=== PATIENT | female | born 1940 | race Caucasian/White ===

== ENCOUNTER 2021-03-20 22:21 | Inpatient (IN) | payer MEDICARE, SELFPAY ==
--- NOTE | 2021-03-20 22:32 | ED_ITS ---
Documented by User: Didier Berrios MD 03/30/21 02:43 HPI - Abdominal Pain General: Chief Complaint: Abdominal Pain Stated Complaint: N/V/D ABD PAIN Time Seen by Provider: 03/20/21 22:32 History of Present Illness: HPI narrative: Ms. Pedraza is an 80-year-old lady who reports no significant past medical history presents to the emergency department due to abdominal pain, nausea, vomiting, diarrhea. She does have a history of stomach upset however no formal diagnosis. Subacutely at approximately 5:30 PM she had onset of abdominal pain. Intensity of symptoms is moderate to severe and primarily on the left side of the abdomen with radiation to the right. She endorses 4 episodes of nonbilious and nonbloody emesis. She has also had multiple episodes of diarrhea. When she is vomiting she has urinary leakage. She has subjective fevers and chills associated with this but no other infectious symptoms. Earlier in the day she was at her baseline. Overall the course of symptoms has worsened. No other new changes in health, exacerbating, or relieving factors identified. Review of Systems General: Reports: 10 or more systems reviewed and unremarkable except in HPI and below PFSH ED PFSH: Medical History Anemia Blind left eye ANSELMO (generalized anxiety disorder) Macrocytosis PVD (peripheral vascular disease) Sciatica TIA (transient ischemic attack) Surgical History H/O eye surgery H/O knee surgery S/P IRASEMA-BSO Family History Daughter Healthy adult Social History Smoking and tobacco status: former smoker Alcohol intake: current Alcohol type: wine Lives independently: Yes Household members: significant other Marital status: / Physical Exam Narrative: EXAM NARRATIVE: GENERAL/CONSTITUTIONAL - uncomfortable-appearing. Nontoxic Eyes -no scleral icterus, no conjunctival injection ENMT - Atraumatic external nose and ears. NECK - supple. trachea midline CARDIOVASCULAR - regular rate and rhythm. Normal peripheral perfusion RESPIRATORY - clear to auscultation bilaterally. No retractions or accessory muscle use. ABDOMEN/GI - tenderness to palpation. Nondistended. Mild tenderness to percussion without evidence of remote peritonitis. MSK - Extremities without obvious deformity or tenderness to palpation SKIN - Warm, Dry NEURO - alert and appropriately oriented. Moves all extremities equally. Course ED course: - Patient was seen and evaluated by me at bedside - Patient placed on cardiac monitors, IV access obtained - Initial evaluation notable for abdominal exam as above - symptom treatment ordered - Labs and imaging ordered. Patient care handed off to overnight ED physician Dr Hawley pending completion and interpretation of labs and imaging studies. Vital Signs: Vital signs: Vital Signs Temperature 98.3 F 03/27/21 12:00 Pulse Rate 72 03/27/21 13:48 Respiratory Rate 17 03/27/21 13:00 Blood Pressure 129/71 03/27/21 13:00 Pulse Oximetry 95 03/26/21 20:00 MDM - Abdominal Pain Medical Records: Attestation: I reviewed the patient's medical records. Lab Data: Attestation: I reviewed the patient's lab results. Labs: Lab Results 03/20/21 03/20/21 03/20/21 10:45 22:37 22:37 WBC 10.9 10^3/uL H 10 ^3/uL (4.0-10.0) RBC 3.69 10^6/uL L 10 ^6/uL (4.1-5.3) Hgb 12.6 g/dL g/dL (11.5-15.3) Hct 37.9 % % (37.0-47.0) MCV 102.7 fl H fl (81-99) MCH 34.1 pg H pg (28.0-34.0) MCHC 33.2 g/dL g/dL (30.0-36.0) RDW 12.6 % % (12.1-15.1) Plt Count 287 10^3/cmm 10^3 /cmm (130-400) MPV 10.3 fL fL (7.4-10.4) Neut % (Auto) 65.2 % % Lymph % (Auto) 22.8 % % [place] % (Auto) 8.3 % % Eos % (Auto) 2.8 % % Baso % (Auto) 0.6 % % Neut # (Auto) 7.09 10^3/uL 10^3 /uL (1.8-7.7) Lymph # (Auto) 2.5 10^3/uL 10^3/ uL (0.8-4.8) [place] # (Auto) 0.9 10^3/uL 10^3/ uL (0.2-0.9) Eos # (Auto) 0.3 10^3/uL 10^3/ uL (0.0-0.8) Baso # (Auto) 0.1 10^3/uL 10^3/ uL (0.0-0.1) Nucleated RBC % (a uto) 0 % % Nucleated RBCs # 0.0 /100WBC /100W BC PT INR Sodium Cancelled Potassium Cancelled Chloride Cancelled Carbon Dioxide Cancelled Anion Gap Cancelled BUN Cancelled Creatinine Cancelled GFR Calculation Cancelled Glucose Cancelled POC Glucose Random Glucose Calculated Osmolal ity Cancelled Lactic Acid Lactate Calcium Cancelled Magnesium Total Bilirubin Cancelled Direct Bilirubin AST Cancelled ALT Cancelled Alkaline Phosphata se Cancelled Troponin T Baselin e Troponin T 120 [place] Troponin T Troponin T Hi Sens 6Hr Troponin T Hi Sens 6Hr Delta Total Protein Cancelled Albumin Cancelled Globulin Cancelled Lipase Cancelled TSH Urine Color Straw (Yellow) Urine Appearance Clear (CLEAR) Urine pH 7 (5-7) Ur Specific Gravit y 1.010 (1.005-1.030) Urine Protein Neg (Negative) Urine Glucose (UA) Norm (Normal) Urine Ketones 1+ H (Negative) Urine Blood Neg (Negative) Urine Nitrate Negative (Negative) Urine Bilirubin Neg (Negative) Urine Urobilinogen Norm mg/dL mg/dL (Negative) Ur Leukocyte Jing ase Negative (Negative) Blood Type Rho(D) Type Antibody Screen 03/20/21 03/20/21 03/20/21 22:37 22:37 22:55 WBC RBC Hgb Hct MCV MCH MCHC RDW Plt Count MPV Neut % (Auto) Lymph % (Auto) [place] % (Auto) Eos % (Auto) Baso % (Auto) Neut # (Auto) Lymph # (Auto) [place] # (Auto) Eos # (Auto) Baso # (Auto) Nucleated RBC % (a uto) Nucleated RBCs # PT INR Sodium Potassium Chloride Carbon Dioxide Anion Gap BUN Creatinine GFR Calculation Glucose POC Glucose 122 mg/dL H mg/dL (70-110) Random Glucose Calculated Osmolal ity Lactic Acid Lactate 1.1 mmol/L mmol/L (0.5-2.2) Calcium Magnesium Total Bilirubin Direct Bilirubin AST ALT Alkaline Phosphata se Troponin T Baselin e 14 ng/L H ng/L (0-10) Troponin T 120 [place] Troponin T Troponin T Hi Sens 6Hr Troponin T Hi Sens 6Hr Delta Total Protein Albumin Globulin Lipase TSH Urine Color Urine Appearance Urine pH Ur Specific Gravit y Urine Protein Urine Glucose (UA) Urine Ketones Urine Blood Urine Nitrate Urine Bilirubin Urine Urobilinogen Ur Leukocyte Jing ase Blood Type Rho(D) Type Antibody Screen 03/20/21 03/20/21 03/21/21 23:42 23:42 01:15 WBC RBC Hgb Hct MCV MCH MCHC RDW Plt Count MPV Neut % (Auto) Lymph % (Auto) [place] % (Auto) Eos % (Auto) Baso % (Auto) Neut # (Auto) Lymph # (Auto) [place] # (Auto) Eos # (Auto) Baso # (Auto) Nucleated RBC % (a uto) Nucleated RBCs # PT INR Sodium Cancelled 144 mmol/L mmol/L (136-145) Potassium Cancelled 3.5 mmol/L mmol/L (3.5-5.1) Chloride Cancelled 105 mmol/L mmol/L (98-107) Carbon Dioxide Cancelled 25 mmol/L mmol/L (22-29) Anion Gap Cancelled 17.5 (5-19) BUN Cancelled 16 mg/dL mg/dL (8-23) Creatinine Cancelled 0.6 mg/dL mg/dL (0.5-0.9) GFR Calculation Cancelled Not Reportable Glucose Cancelled 117 mg/dL H mg/dL (65-115) POC Glucose Random Glucose Cancelled Calculated Osmolal ity Cancelled 300 mOsm/kg H mOs m/kg (285-295) Lactic Acid Lactate Calcium Cancelled 8.5 mg/dL mg/dL (8.5-10.5) Magnesium Total Bilirubin Cancelled 0.3 mg/dL mg/dL (0.15-1.2) Direct Bilirubin AST Cancelled 14 U/L U/L (0-32) ALT Cancelled 9 U/L U/L (0-33) Alkaline Phosphata se Cancelled 59 IU/L IU/L (35-105) Troponin T Baselin e Troponin T 120 [place] 24.87 ng/L H ng/L (0-10) Delta Troponin T 10.87 ABS# H* ABS # (0-10) Troponin T Hi Sens 6Hr Troponin T Hi Sens 6Hr Delta Total Protein Cancelled 6.4 g/dL L g/dL (6.6-8.7) Albumin Cancelled 4.0 g/dL g/dL (3.5-5.2) Globulin Cancelled 2.4 g/dL g/dL (1.3-4.6) Lipase 33 U/L U/L (13-60) TSH Urine Color Urine Appearance Urine pH Ur Specific Gravit y Urine Protein Urine Glucose (UA) Urine Ketones Urine Blood Urine Nitrate Urine Bilirubin Urine Urobilinogen Ur Leukocyte Jing ase Blood Type Rho(D) Type Antibody Screen 03/21/21 03/21/21 03/21/21 01:15 01:40 01:40 WBC RBC Hgb Hct MCV MCH MCHC RDW Plt Count MPV Neut % (Auto) Lymph % (Auto) [place] % (Auto) Eos % (Auto) Baso % (Auto) Neut # (Auto) Lymph # (Auto) [place] # (Auto) Eos # (Auto) Baso # (Auto) Nucleated RBC % (a uto) Nucleated RBCs # PT 12.90 SECONDS SEC ONDS (12.1-14.9) INR 0.94 (0.8-1.2) Sodium Potassium Chloride Carbon Dioxide Anion Gap BUN Creatinine GFR Calculation Glucose POC Glucose Random Glucose Calculated Osmolal ity Lactic Acid 0.9 mmol/L mmol/L (0.5-2.2) Lactate Calcium Magnesium Total Bilirubin Direct Bilirubin AST ALT Alkaline Phosphata se Troponin T Baselin e Troponin T 120 [place] Troponin T Troponin T Hi Sens 6Hr Troponin T Hi Sens 6Hr Delta Total Protein Albumin Globulin Lipase TSH Urine Color Urine Appearance Urine pH Ur Specific Gravit y Urine Protein Urine Glucose (UA) Urine Ketones Urine Blood Urine Nitrate Urine Bilirubin Urine Urobilinogen Ur Leukocyte Jing ase Blood Type A Positive Rho(D) Type Positive Antibody Screen Negative 03/21/21 03/21/21 03/21/21 04:18 04:18 04:18 WBC RBC Hgb Hct MCV MCH MCHC RDW Plt Count MPV Neut % (Auto) Lymph % (Auto) [place] % (Auto) Eos % (Auto) Baso % (Auto) Neut # (Auto) Lymph # (Auto) [place] # (Auto) Eos # (Auto) Baso # (Auto) Nucleated RBC % (a uto) Nucleated RBCs # PT INR Sodium Potassium Chloride Carbon Dioxide Anion Gap BUN Creatinine GFR Calculation Glucose POC Glucose Random Glucose Calculated Osmolal ity Lactic Acid Lactate Calcium Magnesium 1.7 mg/dL mg/dL (1.7-2.3) Total Bilirubin 0.5 mg/dL mg/dL (0.15-1.2) Direct Bilirubin 0.20 mg/dL mg/dL (0.00-0.30) AST 17 U/L U/L (0-32) ALT 11 U/L U/L (0-33) Alkaline Phosphata se 63 IU/L IU/L (35-105) Troponin T Baselin e Troponin T 120 [place] Troponin T Troponin T Hi Sens 6Hr 31.31 ng/L H ng/L (0-10) Troponin T Hi Sens 6Hr Delta 17.31 ng/L H* ng/ L (0-12) Total Protein 6.6 g/dL g/dL (6.6-8.7) Albumin 4.0 g/dL g/dL (3.5-5.2) Globulin 2.6 g/dL g/dL (1.3-4.6) Lipase TSH Urine Color Urine Appearance Urine pH Ur Specific Gravit y Urine Protein Urine Glucose (UA) Urine Ketones Urine Blood Urine Nitrate Urine Bilirubin Urine Urobilinogen Ur Leukocyte Jing ase Blood Type Rho(D) Type Antibody Screen 03/21/21 04:50 WBC RBC Hgb Hct MCV MCH MCHC RDW Plt Count MPV Neut % (Auto) Lymph % (Auto) [place] % (Auto) Eos % (Auto) Baso % (Auto) Neut # (Auto) Lymph # (Auto) [place] # (Auto) Eos # (Auto) Baso # (Auto) Nucleated RBC % (a uto) Nucleated RBCs # PT INR Sodium Potassium Chloride Carbon Dioxide Anion Gap BUN Creatinine GFR Calculation Glucose POC Glucose Random Glucose Calculated Osmolal ity Lactic Acid Lactate Calcium Magnesium Total Bilirubin Direct Bilirubin AST ALT Alkaline Phosphata se Troponin T Baselin e Troponin T 120 [place] Troponin T Troponin T Hi Sens 6Hr Troponin T Hi Sens 6Hr Delta Total Protein Albumin Globulin Lipase TSH 4.61 uIU/mL H uIU /mL (0.27-4.20) Urine Color Urine Appearance Urine pH Ur Specific Gravit y Urine Protein Urine Glucose (UA) Urine Ketones Urine Blood Urine Nitrate Urine Bilirubin Urine Urobilinogen Ur Leukocyte Jing ase Blood Type Rho(D) Type Antibody Screen Discharge Plan Discharge Patient Disposition: Admitted As Inpatient Admit Provider: Delroy Kaur Clinical Impression: Cecal volvulus Condition: Stable Discharge Diet: Advance as tolerated, Usual diet and GI Soft Discharge Activity: Resume usual activity Coding Level of Care Code ED Store Receiving 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 for Chg Fwd Documented by User: Larry Hawley MD 03/21/21 01:38 HPI - Abdominal Pain General: Chief Complaint: Abdominal Pain Stated Complaint: N/V/D ABD PAIN Time Seen by Provider: 03/20/21 22:32 History of Present Illness: Associated Symptoms: Reports nausea and vomiting; Denies chills, dysuria and fever(s) Review of Systems Const: Denies: fever(s), chills, body aches or change in appetite Eyes: Denies: blurry vision or eye discomfort ENMT: Denies: throat pain or dental pain Card: Denies: chest pain Resp: Denies: dyspnea GI: Reports: abdominal pain, nausea and vomiting : Denies: dysuria Musc: Denies: neck pain or back pain Skin/Breast: Denies: rash Neuro: Denies: headache(s) Psych: Denies: depression [place]/Lymph: Denies: easy bruising All/Imm: Denies: urticaria PFSH ED PFSH: Medical History Anemia Blind left eye ANSELMO (generalized anxiety disorder) Macrocytosis PVD (peripheral vascular disease) Sciatica TIA (transient ischemic attack) Surgical History H/O eye surgery H/O knee surgery S/P IRASEMA-BSO Family History Daughter Healthy adult Social History Smoking and tobacco status: former smoker Alcohol intake: current Alcohol type: wine Lives independently: Yes Household members: significant other Marital status: / Course Vital Signs: Vital signs: Vital Signs Temperature 98.3 F 03/27/21 12:00 Pulse Rate 72 03/27/21 13:48 Respiratory Rate 17 03/27/21 13:00 Blood Pressure 129/71 03/27/21 13:00 Pulse Oximetry 95 03/26/21 20:00 MDM - Abdominal Pain MDM Narrative: Medical decision making narrative: Patient presents here with abdominal pain CT here shows a cecal volvulus without perforation patient's lactate level here is normal I spoke to surgeon Dr. Ortiz on the phone will start IV antibiotics and he plans on taking her to the operating room. Lab Data: Labs: Lab Results 03/20/21 03/20/21 03/20/21 10:45 22:37 22:37 WBC 10.9 10^3/uL H 10 ^3/uL (4.0-10.0) RBC 3.69 10^6/uL L 10 ^6/uL (4.1-5.3) Hgb 12.6 g/dL g/dL (11.5-15.3) Hct 37.9 % % (37.0-47.0) MCV 102.7 fl H fl (81-99) MCH 34.1 pg H pg (28.0-34.0) MCHC 33.2 g/dL g/dL (30.0-36.0) RDW 12.6 % % (12.1-15.1) Plt Count 287 10^3/cmm 10^3 /cmm (130-400) MPV 10.3 fL fL (7.4-10.4) Neut % (Auto) 65.2 % % Lymph % (Auto) 22.8 % % [place] % (Auto) 8.3 % % Eos % (Auto) 2.8 % % Baso % (Auto) 0.6 % % Neut # (Auto) 7.09 10^3/uL 10^3 /uL (1.8-7.7) Lymph # (Auto) 2.5 10^3/uL 10^3/ uL (0.8-4.8) [place] # (Auto) 0.9 10^3/uL 10^3/ uL (0.2-0.9) Eos # (Auto) 0.3 10^3/uL 10^3/ uL (0.0-0.8) Baso # (Auto) 0.1 10^3/uL 10^3/ uL (0.0-0.1) Nucleated RBC % (a uto) 0 % % Nucleated RBCs # 0.0 /100WBC /100W BC PT INR Sodium Cancelled Potassium Cancelled Chloride Cancelled Carbon Dioxide Cancelled Anion Gap Cancelled BUN Cancelled Creatinine Cancelled GFR Calculation Cancelled Glucose Cancelled POC Glucose Random Glucose Calculated Osmolal ity Cancelled Lactic Acid Lactate Calcium Cancelled Magnesium Total Bilirubin Cancelled Direct Bilirubin AST Cancelled ALT Cancelled Alkaline Phosphata se Cancelled Troponin T Baselin e Troponin T 120 [place] Troponin T Troponin T Hi Sens 6Hr Troponin T Hi Sens 6Hr Delta Total Protein Cancelled Albumin Cancelled Globulin Cancelled Lipase Cancelled TSH Urine Color Straw (Yellow) Urine Appearance Clear (CLEAR) Urine pH 7 (5-7) Ur Specific Gravit y 1.010 (1.005-1.030) Urine Protein Neg (Negative) Urine Glucose (UA) Norm (Normal) Urine Ketones 1+ H (Negative) Urine Blood Neg (Negative) Urine Nitrate Negative (Negative) Urine Bilirubin Neg (Negative) Urine Urobilinogen Norm mg/dL mg/dL (Negative) Ur Leukocyte Jing ase Negative (Negative) Blood Type Rho(D) Type Antibody Screen 03/20/21 03/20/21 03/20/21 22:37 22:37 22:55 WBC RBC Hgb Hct MCV MCH MCHC RDW Plt Count MPV Neut % (Auto) Lymph % (Auto) [place] % (Auto) Eos % (Auto) Baso % (Auto) Neut # (Auto) Lymph # (Auto) [place] # (Auto) Eos # (Auto) Baso # (Auto) Nucleated RBC % (a uto) Nucleated RBCs # PT INR Sodium Potassium Chloride Carbon Dioxide Anion Gap BUN Creatinine GFR Calculation Glucose POC Glucose 122 mg/dL H mg/dL (70-110) Random Glucose Calculated Osmolal ity Lactic Acid Lactate 1.1 mmol/L mmol/L (0.5-2.2) Calcium Magnesium Total Bilirubin Direct Bilirubin AST ALT Alkaline Phosphata se Troponin T Baselin e 14 ng/L H ng/L (0-10) Troponin T 120 [place] Troponin T Troponin T Hi Sens 6Hr Troponin T Hi Sens 6Hr Delta Total Protein Albumin Globulin Lipase TSH Urine Color Urine Appearance Urine pH Ur Specific Gravit y Urine Protein Urine Glucose (UA) Urine Ketones Urine Blood Urine Nitrate Urine Bilirubin Urine Urobilinogen Ur Leukocyte Jing ase Blood Type Rho(D) Type Antibody Screen 03/20/21 03/20/21 03/21/21 23:42 23:42 01:15 WBC RBC Hgb Hct MCV MCH MCHC RDW Plt Count MPV Neut % (Auto) Lymph % (Auto) [place] % (Auto) Eos % (Auto) Baso % (Auto) Neut # (Auto) Lymph # (Auto) [place] # (Auto) Eos # (Auto) Baso # (Auto) Nucleated RBC % (a uto) Nucleated RBCs # PT INR Sodium Cancelled 144 mmol/L mmol/L (136-145) Potassium Cancelled 3.5 mmol/L mmol/L (3.5-5.1) Chloride Cancelled 105 mmol/L mmol/L (98-107) Carbon Dioxide Cancelled 25 mmol/L mmol/L (22-29) Anion Gap Cancelled 17.5 (5-19) BUN Cancelled 16 mg/dL mg/dL (8-23) Creatinine Cancelled 0.6 mg/dL mg/dL (0.5-0.9) GFR Calculation Cancelled Not Reportable Glucose Cancelled 117 mg/dL H mg/dL (65-115) POC Glucose Random Glucose Cancelled Calculated Osmolal ity Cancelled 300 mOsm/kg H mOs m/kg (285-295) Lactic Acid Lactate Calcium Cancelled 8.5 mg/dL mg/dL (8.5-10.5) Magnesium Total Bilirubin Cancelled 0.3 mg/dL mg/dL (0.15-1.2) Direct Bilirubin AST Cancelled 14 U/L U/L (0-32) ALT Cancelled 9 U/L U/L (0-33) Alkaline Phosphata se Cancelled 59 IU/L IU/L (35-105) Troponin T Baselin e Troponin T 120 [place] 24.87 ng/L H ng/L (0-10) Delta Troponin T 10.87 ABS# H* ABS # (0-10) Troponin T Hi Sens 6Hr Troponin T Hi Sens 6Hr Delta Total Protein Cancelled 6.4 g/dL L g/dL (6.6-8.7) Albumin Cancelled 4.0 g/dL g/dL (3.5-5.2) Globulin Cancelled 2.4 g/dL g/dL (1.3-4.6) Lipase 33 U/L U/L (13-60) TSH Urine Color Urine Appearance Urine pH Ur Specific Gravit y Urine Protein Urine Glucose (UA) Urine Ketones Urine Blood Urine Nitrate Urine Bilirubin Urine Urobilinogen Ur Leukocyte Jing ase Blood Type Rho(D) Type Antibody Screen 03/21/21 03/21/21 03/21/21 01:15 01:40 01:40 WBC RBC Hgb Hct MCV MCH MCHC RDW Plt Count MPV Neut % (Auto) Lymph % (Auto) [place] % (Auto) Eos % (Auto) Baso % (Auto) Neut # (Auto) Lymph # (Auto) [place] # (Auto) Eos # (Auto) Baso # (Auto) Nucleated RBC % (a uto) Nucleated RBCs # PT 12.90 SECONDS SEC ONDS (12.1-14.9) INR 0.94 (0.8-1.2) Sodium Potassium Chloride Carbon Dioxide Anion Gap BUN Creatinine GFR Calculation Glucose POC Glucose Random Glucose Calculated Osmolal ity Lactic Acid 0.9 mmol/L mmol/L (0.5-2.2) Lactate Calcium Magnesium Total Bilirubin Direct Bilirubin AST ALT Alkaline Phosphata se Troponin T Baselin e Troponin T 120 [place] Troponin T Troponin T Hi Sens 6Hr Troponin T Hi Sens 6Hr Delta Total Protein Albumin Globulin Lipase TSH Urine Color Urine Appearance Urine pH Ur Specific Gravit y Urine Protein Urine Glucose (UA) Urine Ketones Urine Blood Urine Nitrate Urine Bilirubin Urine Urobilinogen Ur Leukocyte Jing ase Blood Type A Positive Rho(D) Type Positive Antibody Screen Negative 03/21/21 03/21/21 03/21/21 04:18 04:18 04:18 WBC RBC Hgb Hct MCV MCH MCHC RDW Plt Count MPV Neut % (Auto) Lymph % (Auto) [place] % (Auto) Eos % (Auto) Baso % (Auto) Neut # (Auto) Lymph # (Auto) [place] # (Auto) Eos # (Auto) Baso # (Auto) Nucleated RBC % (a uto) Nucleated RBCs # PT INR Sodium Potassium Chloride Carbon Dioxide Anion Gap BUN Creatinine GFR Calculation Glucose POC Glucose Random Glucose Calculated Osmolal ity Lactic Acid Lactate Calcium Magnesium 1.7 mg/dL mg/dL (1.7-2.3) Total Bilirubin 0.5 mg/dL mg/dL (0.15-1.2) Direct Bilirubin 0.20 mg/dL mg/dL (0.00-0.30) AST 17 U/L U/L (0-32) ALT 11 U/L U/L (0-33) Alkaline Phosphata se 63 IU/L IU/L (35-105) Troponin T Baselin e Troponin T 120 [place] Troponin T Troponin T Hi Sens 6Hr 31.31 ng/L H ng/L (0-10) Troponin T Hi Sens 6Hr Delta 17.31 ng/L H* ng/ L (0-12) Total Protein 6.6 g/dL g/dL (6.6-8.7) Albumin 4.0 g/dL g/dL (3.5-5.2) Globulin 2.6 g/dL g/dL (1.3-4.6) Lipase TSH Urine Color Urine Appearance Urine pH Ur Specific Gravit y Urine Protein Urine Glucose (UA) Urine Ketones Urine Blood Urine Nitrate Urine Bilirubin Urine Urobilinogen Ur Leukocyte Jing ase Blood Type Rho(D) Type Antibody Screen 03/21/21 04:50 WBC RBC Hgb Hct MCV MCH MCHC RDW Plt Count MPV Neut % (Auto) Lymph % (Auto) [place] % (Auto) Eos % (Auto) Baso % (Auto) Neut # (Auto) Lymph # (Auto) [place] # (Auto) Eos # (Auto) Baso # (Auto) Nucleated RBC % (a uto) Nucleated RBCs # PT INR Sodium Potassium Chloride Carbon Dioxide Anion Gap BUN Creatinine GFR Calculation Glucose POC Glucose Random Glucose Calculated Osmolal ity Lactic Acid Lactate Calcium Magnesium Total Bilirubin Direct Bilirubin AST ALT Alkaline Phosphata se Troponin T Baselin e Troponin T 120 [place] Troponin T Troponin T Hi Sens 6Hr Troponin T Hi Sens 6Hr Delta Total Protein Albumin Globulin Lipase TSH 4.61 uIU/mL H uIU /mL (0.27-4.20) Urine Color Urine Appearance Urine pH Ur Specific Gravit y Urine Protein Urine Glucose (UA) Urine Ketones Urine Blood Urine Nitrate Urine Bilirubin Urine Urobilinogen Ur Leukocyte Jing ase Blood Type Rho(D) Type Antibody Screen Imaging Data ^: CT Abd/Pel: Attestation: I personally reviewed and interpreted this imaging study as follows: Radiologist's impression: [address] [id number] [address] Scan Report Signed with Addenda Patient: Morena Pedraza Unit #: [id number] : [id number] Age/Sex: 80 / F ADM Date: 03/20/21 Loc: ER Room/Bed: Attending Dr: Ordering Provider/Ordering MD: Didier Berrios MD Date of Service: 03/20/21 Procedure(s): CT abdomen pelvis w con* [id number] Accession Number(s): [id number] Report Number: [id number]/CT abdomen pelvis w con* [id number] THIS REPORT CONTAINS FINDINGS THAT MAY BE CRITICAL TO PATIENT CARE. The findings were verbally communicated via telephone conference with Dr. Rodas at 1:04 AM SUBSTATION MAINTENANCE TECHNICIAN on 03/21/2021. The findings were acknowledged and understood. Addendum Dictated By: Cody Lin MD Addendum Signed By: Cody Lin MD Signed Date/Time: 03/21/21 0106 Addendum Cosigned By: PROCEDURE INFORMATION: Exam: CT Abdomen And Pelvis With Contrast Exam date and time: 03/20/2021 10:38 PM Age: 80 years old Clinical indication: Nausea and vomiting; Abdominal pain; Generalized; Patient HX: C/O diffuse abd pain with n/v/d. ; Additional info: Abdominal pain, n/v/d TECHNIQUE: Imaging protocol: Computed tomography of the abdomen and pelvis with contrast. Radiation optimization: All CT scans at this facility use at least one of these dose optimization techniques: automated exposure control; mA and/or kV adjustment per patient size (includes targeted exams where dose is matched to clinical indication); or iterative reconstruction. Contrast material: OMNI 300; Contrast volume: 95 ml; Contrast route: INTRAVENOUS (IV); COMPARISON: No relevant prior studies available. RADIATION DOSE METRICS: Total DLP (mGy-cm): 1139.6 FINDINGS: Lungs: The lung bases are clear. Liver: There is a 1.4 cm simple cyst in the right hepatic lobe. There is a smaller cyst in the inferior right hepatic lobe. Gallbladder and bile ducts: Normal. No calcified stones. No ductal dilation. Pancreas: Normal. No ductal dilation. Spleen: Normal. No splenomegaly. Adrenal glands: Normal. No mass. Kidneys and ureters: Several bilateral renal parapelvic cysts. Stomach and bowel: The cecum is severely dilated up to 11 cm and contains gas, fluid and some residual opaque material. There is abrupt beaking at the transition in the right lower quadrant indicating a volvulus. The more distal colon is completely decompressed. Sigmoid diverticula are not inflamed. Small bowel is normal. Appendix: No evidence of appendicitis. Intraperitoneal space: Small pelvic free fluid. There is no pneumatosis, perforation or free air. Vasculature: Unremarkable. No abdominal aortic aneurysm. Lymph nodes: Unremarkable. No enlarged lymph nodes. Urinary bladder: Unremarkable as visualized. Reproductive: The uterus is surgically absent. The ovaries are atrophic. Bones/joints: Multilevel chronic degenerative changes in the lumbar spine. Soft tissues: Unremarkable. CT/CT abdomen pelvis w con* [id number] IMPRESSION: 1. Cecal volvulus with significant cecal distention. However no perforation or pneumatosis. 2. Other chronic and incidental findings as described COMMENTS: Consistent with the [employer]'s Incidental Findings Committee white paper (J Am Marc Radiol 2018): Any incidental renal lesion less than 1 cm or classified as too small to characterize, or any incidental cystic renal lesion characterized as simple-appearing, is likely benign. No follow-up imaging is recommended for these lesions per consensus recommendations based on imaging criteria. Dictated By: Cody Lin MD Signed By: Cody Lin MD Signed Date/Time: 03/21/21 0058 DD/ 37 Discharge Plan Discharge Patient Disposition: Admitted As Inpatient Admit Provider: Delroy Kaur Clinical Impression: Cecal volvulus Condition: Stable Discharge Diet: Advance as tolerated, Usual diet and GI Soft Discharge Activity: Resume usual activity Coding Level of Care Code ED Store Receiving Clerk for Amy Hubbard
[2021-03-20 22:33] VITALS: BP 195/86; PULSE 69; RESP 24; TEMP 36.7; O2SAT 98; BMI 25.0
--- NOTE | 2021-03-20 22:38 | CTR_ITS ---
PROCEDURE INFORMATION: Exam: CT Abdomen And Pelvis With Contrast Exam date and time: 03/20/2021 10:38 PM Age: 80 years old Clinical indication: Nausea and vomiting; Abdominal pain; Generalized; Patient HX: C/O diffuse abd pain with n/v/d. ; Additional info: Abdominal pain, n/v/d TECHNIQUE: Imaging protocol: Computed tomography of the abdomen and pelvis with contrast. Radiation optimization: All CT scans at this facility use at least one of these dose optimization techniques: automated exposure control; mA and/or kV adjustment per patient size (includes targeted exams where dose is matched to clinical indication); or iterative reconstruction. Contrast material: OMNI 300; Contrast volume: 95 ml; Contrast route: INTRAVENOUS (IV); COMPARISON: No relevant prior studies available. RADIATION DOSE METRICS: Total DLP (mGy-cm): 1139.6 FINDINGS: Lungs: The lung bases are clear. Liver: There is a 1.4 cm simple cyst in the right hepatic lobe. There is a smaller cyst in the inferior right hepatic lobe. Gallbladder and bile ducts: Normal. No calcified stones. No ductal dilation. Pancreas: Normal. No ductal dilation. Spleen: Normal. No splenomegaly. Adrenal glands: Normal. No mass. Kidneys and ureters: Several bilateral renal parapelvic cysts. Stomach and bowel: The cecum is severely dilated up to 11 cm and contains gas, fluid and some residual opaque material. There is abrupt beaking at the transition in the right lower quadrant indicating a volvulus. The more distal colon is completely decompressed. Sigmoid diverticula are not inflamed. Small bowel is normal. Appendix: No evidence of appendicitis. Intraperitoneal space: Small pelvic free fluid. There is no pneumatosis, perforation or free air. Vasculature: Unremarkable. No abdominal aortic aneurysm. Lymph nodes: Unremarkable. No enlarged lymph nodes. Urinary bladder: Unremarkable as visualized. Reproductive: The uterus is surgically absent. The ovaries are atrophic. Bones/joints: Multilevel chronic degenerative changes in the lumbar spine. Soft tissues: Unremarkable. CT/CT abdomen pelvis w con* [id number] IMPRESSION: 1. Cecal volvulus with significant cecal distention. However no perforation or pneumatosis. 2. Other chronic and incidental findings as described COMMENTS: Consistent with the [place] [employer]'s Incidental Findings Committee white paper (J Am Marc Radiol 2018): Any incidental renal lesion less than 1 cm or classified as too small to characterize, or any incidental cystic renal lesion characterized as simple-appearing, is likely benign. No follow-up imaging is recommended for these lesions per consensus recommendations based on imaging criteria.
--- NOTE | 2021-03-20 22:39 | ECG_ITS ---
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 Measurements Intervals [place] Rate: 58 P: 85 NE: 154 QRS: 36 QRSD: 82 T: 67 QT: 455 QTc: 451 Interpretive Statements SINUS BRADYCARDIA WITH OCCASIONAL SUPRAVENTRICULAR PREMATURE COMPLEXES Compared to ECG 06/05/2014 22:40:56 No significant changes Electronically Signed On 03-21-2021 7:35:13 KRAFT DIGESTER OPERATOR by Jai Manzanares M.D. [email or web address] general hospitalCro [email or web address]/store/OM/[id number]
[2021-03-20 22:45] LABS: Basophils # 0.1 10^3/uL (0.0-0.1); Basophils % 0.6 %; Eosinophils # 0.3 10^3/uL (0.0-0.8); Eosinophils % 2.8 %; Hematocrit 37.9 % (37.0-47.0); Hemoglobin 12.6 g/dL (11.5-15.3); Lymphocytes # 2.5 10^3/uL (0.8-4.8); Lymphocytes % 22.8 %; Mean Corpuscular HGB Conc 33.2 g/dL (30.0-36.0); Mean Corpuscular Hemoglobin 34.1 pg (28.0-34.0); Mean Corpuscular Volume 102.7 fl (81-99); Mean Platelet Volume 10.3 fL (7.4-10.4); Monocytes # 0.9 10^3/uL (0.2-0.9); Monocytes % 8.3 %; Neutrophils # 7.09 10^3/uL (1.8-7.7); Neutrophils % 65.2 %; Nucleated Red Blood Cells % 0 %; Platelet Count 287 10^3/cmm (130-400); Red Blood Count 3.69 10^6/uL (4.1-5.3); Red Cell Distribution Width 12.6 % (12.1-15.1); White Blood Count 10.9 10^3/uL (4.0-10.0)
[2021-03-20] MEDS: ondansetron 2 mg/ML SDV 2 mL 4 MG IVP (22:58)
[2021-03-20] MEDS: sodium chloride 0.9% 500 ML IV (22:58)
[2021-03-20 23:00] VITALS: RESP 19
[2021-03-20] MEDS: morphine 4 mg/mL SDV 1 mL IVP (23:00)
[2021-03-20 23:02] VITALS: BP 175/81; PULSE 67; RESP 19; O2SAT 100
[2021-03-20 23:04] LABS: Troponin(5th) Baseline 14 ng/L (0-10)
[2021-03-20 23:05] LABS: Lactate (Lactic Acid level) 1.1 mmol/L (0.5-2.2)
[2021-03-21] VITALS (47 sets, daily range): BP systolic 122–166; BP diastolic 60–113; PULSE 50–114; RESP 12–20; TEMP 36.1–37.5; O2SAT 90–100; BMI 25.0
[2021-03-21 00:04] LABS: Lipase 33 U/L (13-60)
[2021-03-21] MEDS: iohexol 300 mg/mL 100 mL Btl IV (00:37)
[2021-03-21] MEDS: piperacillin-tazobactam 3.375 GM in sodium chloride 0.9% (plus) 50 ML IV ×3 (01:34→16:19)
[2021-03-21 01:38] LABS: Troponin 5 2HR 24.87 ng/L (0-10)
[2021-03-21 01:41] LABS: Lactic Sepsis W/Reflex 0.9 mmol/L (0.5-2.2)
[2021-03-21 01:45] LABS: Troponin 5 2HR Delta 10.87 ABS# (0-10)
[2021-03-21 01:57] LABS: INR 0.94 (0.8-1.2)
--- NOTE | 2021-03-21 04:02 | P.HP_ITS ---
Providers/Chief Complaint Primary Care Provider: Bro Gómez MD Chief Complaint: N/V/D ABD PAIN History of Present Illness Chief Complaint: My tummy hurts History of present illness: Morena Pedraza is a pleasant 80 year old female othe rwise healthy presents with acute onset of abdominal pain to the emergency department that started around 5 PM yesterday while she was having dinner, patient reports that she had repeated nausea and vomiting associated with loose stools nonbloody in nature and has been passing gas.she has been worked up for the ER was found to have mild leukocytosis, hemoglobin 12.6, platelets 287, INR 0.9 and serum lactic acid 1.1 and repeat Lactic acid was 0.9. Na 144 K 3.5 CREATININE 0.6 And her pain was more in the center of the abdomen being acute more dull aching nothing seems to make it better or worse except pain medications, mostly referred to the lower abdomen. Patient reports that she had a colonoscopy 6 months ago and was reported as normal per her description unfortunately I do not have a report of that and it is not clear what was the indication to have a colonoscopy in her age group. Further work-up in the ER in the form of CT scan of the abdomen and pelvis showed 1. Cecal volvulus with significant cecal distention. However no perforation or pneumatosis. 2. Other chronic and incidental findings as described General surgery was consulted for further evaluation management. Patient maintained to be hemodynamically stable and showed no signs of sepsis and having adequate urine output. Review of Systems General: Reports: 10 or more systems reviewed and unremarkable except in HPI and below Medications/Allergies Allergies Allergy/AdvReac Type Severity Reaction Status Date / Time No Known Allergies Allergy Verified 03/21/21 04:14 Vitals/I&O/Wt Last Vital Signs Temp 98.0 F 03/20/21 22:33 Pulse 58 L 03/21/21 02:12 Resp 16 03/21/21 02:12 BP 166/85 03/21/21 02:12 Pulse Ox 98 03/21/21 02:12 Weight last 48 hrs Weight 150 lb Physical Exam Const: COMMON NORMALS: no acute distress and patient oriented x3 GENERAL APPEARANCE: cooperative ORIENTATION/CONSCIOUSNESS: Yes awake, Yes oriented to person, Yes oriented to place and Yes oriented to time HENMT: COMMON NORMALS: normocephalic HEAD & SCALP: normocephalic Eye: COMMON NORMALS: Equal, round and reactive pupils present and no scleral icterus PUPIL: Yes Equal, round and reactive pupils present Lymph: LYMPHATIC: no lymphadenopathy noted Chest: COMMONS NORMALS: normal inspection of the chest Resp: COMMON NORMALS: normal respiratory effort and clear to auscultation bilaterally AUSCULTATION: clear to auscultation bilaterally Cardio: COMMON NORMALS: S1 normal heart sound present and S2 normal heart sound present; negative for No murmurs present (Cardio) HEART SOUNDS: S1 normal heart sound present and S2 normal heart sound present GI: COMMON NORMALS: Soft to palpation; negative for No hepatosplenomegaly present INSPECTION: Yes normal to inspection and Yes other (Lower midline scar for previous hysterectomy) PALPATION: Yes Soft to palpation, No Firmness to palpation present (GI), Yes Tenderness to palpation present (GI) (Tenderness appreciated over the center in the lower abdomen otherwise soft) Details: other (Palpable distended bowel towards the center of the abdomen likely cecal volvulus), No Guarding due to palpation present (GI), No Rigid due to palpation and No No hepatosplenomegaly present Neuro: COMMON NORMALS: patient oriented x3 SENSORIUM/ORIENTATION: Yes oriented to person, Yes oriented to place and Yes oriented to time Psych: COMMON NORMALS: mental status grossly normal Skin: COMMON NORMALS: no rashes or lesions noted GENERAL SKIN EXAM: no rashes or lesions noted Data : 03/20/21 22:37 03/20/21 23:42 A&P Assessment and plan (1) Cecal volvulus: After thorough history physical exam,and reviewing the images of the CT scan of the abdomen and pelvis with my personal interpretation showing cecal volvulus without evidence of pneumatosis intestinalis or free air, will start the patient on IV fluid resuscitation antibiotics prior to surgical intervention. I did funeral prearrangement counselor the patient for exploratory laparotomy possible bowel resection possible colostomy.Indication, risks, benefits and alternatives were all discussed with the patient and she did agree to proceed accordingly. Patient understands the potential risk of bleeding risk of leak potential injury to the vascular structures or ureters that may require further intervention. Rationale was carefully and clearly discussed with the patient.Appropriate informed consent have been reviewed and signed in the presence of the nursing staff diet. An informed consent per chart Status: Acute Attestations Medical Necessity Statement*: Patient will require inpatient hospitalization passing 2 midnights for perioperative care Time Spent in Patient Care: 16 - 35 minutes (>than 50% of time spent in counselling and/or direct pt care on unit) . Coding Level of Care Code Acute Rn Hematology for Chg Fwd Exam Comprehensive Diagnoses Cecal volvulus K56.2
--- NOTE | 2021-03-21 04:39 | ECG_ITS ---
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 Measurements Intervals [place] Rate: 59 P: 76 [place]: 157 QRS: 10 QRSD: 85 T: 55 QT: 476 QTc: 473 Interpretive Statements SINUS BRADYCARDIA WITH OCCASIONAL SUPRAVENTRICULAR PREMATURE COMPLEXES PROLONGED QT INTERVAL Compared to ECG 03/20/2021 22:50:04 Prolonged QT interval now present Electronically Signed On 03-21-2021 7:42:38 PHYSICAL THERAPY MANAGER by Jai Manzanares M.D. [id number]
[2021-03-21 04:49] LABS: Alanine Aminotransferase 11 U/L (0-33); Alkaline Phosphatase 63 IU/L (35-105); Aspartate Amino Transferase 17 U/L (0-32); Globulin 2.6 g/dL (1.3-4.6); Total Bilirubin 0.5 mg/dL (0.15-1.2); Total Protein 6.6 g/dL (6.6-8.7)
[2021-03-21 04:51] LABS: Troponin 5 6HR 31.31 ng/L (0-10)
--- NOTE | 2021-03-21 04:58 | P.ANESASSM_ITS ---
Pre-Anesthetic Assessment Pre-Anesthetic Assessment: Height/Weight: Height 1.65 m Weight 68.039 kg Temp Pulse Resp BP Pulse Ox 98.0 F 58 L 16 151/73 97 03/20/21 22:33 03/21/21 04:03 03/21/21 04:03 03/21/21 04:03 03/21/21 04:03 Preop Diagnosis: Cecal Volvulus Proposed Procedure: Operation Date: 03/21/21 05:30 Proposed Procedures p Exploratory Laparotomy possible bowel resection(Not Applicable) - Tariq Hopper MD s Colostomy(Not Applicable) - Tariq Hopper MD Familial anesthetic complications: None Was Beta Zahcary taken within 24 hours: N/A Was Clonidine taken within 24 hours: N/A Last intake: > 8 hrs Social: Social History: No alcohol and No tobacco Exam: Pre-Anes Outpt Exam: alert, oriented x 3, clear to auscultation bilat erally and regular rate & rhythm Airway: Cervical ROM: WNL MP: 1 Dentition: Full Pulmonary: Comments: allergies? CV/HEM: CV/HEM: Angina (Stable) ((chronic) Two negative stress tests on 2011 and 2014) and PVD Neuropsych: Neuropsych: CVA Anesthetic Plan: ASA status: 4E Anesthesia: General Risk of > 500 ml blood loss (7ml/kg in children): No Meds/Allergies Current Medications: Current Medications Generic Name Dose Route Start Last Admin Trade Name Freq PRN Reason Stop Dose Admin Sodium Chloride 1,000 mls @ 999 m ls/hr 03/21/21 04:32 03/21/21 04:36 Sodium Chloride 0.9% IV 03/21/21 05:32 Not Given .Q1H1M ONE Data Anesthesia CBC & Chem 7: 03/20/21 22:37 03/20/21 23:42 Other Labs: Laboratory Results - last 48 hr 03/20/21 03/20/21 03/20/21 22:37 22:37 22:37 WBC 10.9 H RBC 3.69 L Hgb 12.6 Hct 37.9 MCV 102.7 H MCH 34.1 H MCHC 33.2 RDW 12.6 Plt Count 287 MPV 10.3 Neut % (Auto) 65.2 Lymph % (Auto) 22.8 [place] % (Auto) 8.3 Eos % (Auto) 2.8 Baso % (Auto) 0.6 Neut # (Auto) 7.09 Lymph # (Auto) 2.5 [place] # (Auto) 0.9 Eos # (Auto) 0.3 Baso # (Auto) 0.1 Nucleated RBC % (auto) 0 Nucleated RBCs # 0.0 PT INR Sodium Cancelled Potassium Cancelled Chloride Cancelled Carbon Dioxide Cancelled Anion Gap Cancelled BUN Cancelled Creatinine Cancelled GFR Calculation Cancelled Glucose Cancelled Random Glucose Calculated Osmolality Cancelled Lactic Acid Lactate 1.1 Calcium Cancelled Total Bilirubin Cancelled Direct Bilirubin AST Cancelled ALT Cancelled Alkaline Phosphatase Cancelled Troponin T Baseline Troponin T 120 Minute Delta Troponin T Total Protein Cancelled Albumin Cancelled Globulin Cancelled Lipase Cancelled Blood Type Rho(D) Type Antibody Screen 03/20/21 03/20/21 03/21/21 22:37 23:42 01:15 WBC RBC Hgb Hct MCV MCH MCHC RDW Plt Count MPV Neut % (Auto) Lymph % (Auto) [place] % (Auto) Eos % (Auto) Baso % (Auto) Neut # (Auto) Lymph # (Auto) [place] # (Auto) Eos # (Auto) Baso # (Auto) Nucleated RBC % (auto) Nucleated RBCs # PT INR Sodium Cancelled Potassium Cancelled Chloride Cancelled Carbon Dioxide Cancelled Anion Gap Cancelled BUN Cancelled Creatinine Cancelled GFR Calculation Cancelled Glucose 117 H Random Glucose Cancelled Calculated Osmolality 300 H Lactic Acid Lactate Calcium Cancelled Total Bilirubin Cancelled Direct Bilirubin AST Cancelled ALT Cancelled Alkaline Phosphatase Cancelled Troponin T Baseline 14 H Troponin T 120 Minute 24.87 H Delta Troponin T 10.87 H* Total Protein Cancelled Albumin Cancelled Globulin Cancelled Lipase 33 Blood Type Rho(D) Type Antibody Screen 03/21/21 03/21/21 03/21/21 01:15 01:40 01:40 WBC RBC Hgb Hct MCV MCH MCHC RDW Plt Count MPV Neut % (Auto) Lymph % (Auto) [place] % (Auto) Eos % (Auto) Baso % (Auto) Neut # (Auto) Lymph # (Auto) [place] # (Auto) Eos # (Auto) Baso # (Auto) Nucleated RBC % (auto) Nucleated RBCs # PT 12.90 INR 0.94 Sodium Potassium Chloride Carbon Dioxide Anion Gap BUN Creatinine GFR Calculation Glucose Random Glucose Calculated Osmolality Lactic Acid 0.9 Lactate Calcium Total Bilirubin Direct Bilirubin AST ALT Alkaline Phosphatase Troponin T Baseline Troponin T 120 Minute Delta Troponin T Total Protein Albumin Globulin Lipase Blood Type A Positive Rho(D) Type Positive Antibody Screen Negative 03/21/21 04:18 WBC RBC Hgb Hct MCV MCH MCHC RDW Plt Count MPV Neut % (Auto) Lymph % (Auto) [place] % (Auto) Eos % (Auto) Baso % (Auto) Neut # (Auto) Lymph # (Auto) [place] # (Auto) Eos # (Auto) Baso # (Auto) Nucleated RBC % (auto) Nucleated RBCs # PT INR Sodium Potassium Chloride Carbon Dioxide Anion Gap BUN Creatinine GFR Calculation Glucose Random Glucose Calculated Osmolality Lactic Acid Lactate Calcium Total Bilirubin 0.5 Direct Bilirubin 0.20 AST 17 ALT 11 Alkaline Phosphatase 63 Troponin T Baseline Troponin T 120 Minute Delta Troponin T Total Protein 6.6 Albumin 4.0 Globulin 2.6 Lipase Blood Type Rho(D) Type Antibody Screen Cardiac Studies: No Data to Display
[2021-03-21 05:01] LABS: Troponin 5 6HR Delta 17.31 ng/L (0-12)
[2021-03-21 05:03] LABS: Alanine Aminotransferase 9 U/L (0-33); Alkaline Phosphatase 59 IU/L (35-105); Anion Gap 17.5 (5-19); Aspartate Amino Transferase 14 U/L (0-32); Blood Urea Nitrogen 16 mg/dL (8-23); Calcium 8.5 mg/dL (8.5-10.5); Carbon Dioxide 25 mmol/L (22-29); Chloride 105 mmol/L (98-107); Globulin 2.4 g/dL (1.3-4.6); Glucose 117 mg/dL (65-115); Osmolality Calculated 300 mOsm/kg (285-295); Potassium 3.5 mmol/L (3.5-5.1); Sodium 144 mmol/L (136-145); Total Bilirubin 0.3 mg/dL (0.15-1.2); Total Protein 6.4 g/dL (6.6-8.7)
--- NOTE | 2021-03-21 07:33 | PM.OP ---
Operative Report Date of procedure: March 21, 2021 Pre-op Diagnosis: Cecal Volvulus Post-op diagnosis: same Procedure Done: 1-Exploratory laparotomy 2-Limited right hemicolectomy with ileocolic anastomosis [id number] Implants: 2 pieces of Surgicel towards the right side and mid portion of the abdomen for hemostasis Specimens removed/disposition: 1-Limited right hemicolectomy with sutures marked distal\ 2-Staple line Surgeon: Tariq Hopper Billing And Insurance Coordinator: Surgical vladislav Bullard Circulating nurse Jaz Anesthesia: General (JOHN Marcano and Dr. Montiel) Estimated blood loss (mL): 25 IV fluids (mL): 1,000 IV fluids: 250 mL of 5% albumin Urine output (mL): 100 Complications: Supraventricular tachyarrhythmia please see full report per anesthesia Condition: stable Disposition: ICU Procedure: Patient was identified in the holding area was taken to the OR placed in the supine position where she got intubated by anesthesia.placement of a Garcia catheter was placed revealing clear urine. Both arms were tucked , prep and drape of the abdomen was done and the usual sterile technique. Timeout was done verifying the patient's name/date of /planned procedure and destination after the procedure, all were in agreement.SCDs confirmed to be functioning, preoperative antibiotics administered per protocol, and beta ellen protocol was confirmed. I started first by a longitudinal skin incision mid midline(coinciding with the previous lower midline scar) continued dissection through the subcutaneous tissues all the way down to the peritoneum where the incision was extended cephalad and caudad, mild serous ascitic fluid was appreciated, omental adhesions were taken down using energy device Enseal following that the viable small bowel loops were delivered from the abdominal cavity and I was able to deliver A gigantic cecum from the wound there was cecal volvulus along the mesentery of the right colon creating a closed loop obstruction of the cecum and right colon and was found to have adhesive band attached to the right lateral pelvic wall causing the volvulus, that was taken down by energy device. That part of the colon looked fluid-filled distended with some dusky discoloration and no evidence of perforation, immediately a window was created at the terminal ileum and a 75 mm blue load GI stapler was fired, attachments were taken down of the remaining of the mid right colon another window was created in the mesentery of the distal right colon and white load 55 mm was fired unto the pedicle to the ileocolic vessels another NICOLAS blue load was fired, Enseal was then used to take down the mesentery of the right side of the colon and the terminal ileum, specimen was then passed to the circulating nurse for permanent pathology. Sutures marked distal Thorough irrigation of the abdominal cavity was done with 6 L of warm saline, remaining of the viscera looked normal, as I ran the small bowel from the ligament of Treitz to the terminal ileum, well as the remaining of the colon looked normal, liver was normal by palpation as well and there were no any peritoneal carcinomatosis. I had to mobilize the lateral attachments through the line of Toldt towards the distal right colon. Attention was deviated now to create the anastomosis were A [id number] anastomosis between the terminal ileum and the distal part of the right colon after applying stay sutures to the seromuscular layer and creating enterotomies were enteric content of out from the large bowel that was suctioned well, followed by introduction of the GI stapler blue 75 mm load a [id number]-in-[id number] anastomosis was achieved, the enterotomies were then closed by another fire of blue load of 75 NICOLAS stapler , the staple line was sent for pathology. 3-0 silk sutures to prevent spillage of enteric contents, followed by a 75 mm blue load x1 was fired across both ends of the bowel, the staple line was sent for permanent pathology as well. Wide patent ileocolic anastomosis [id number] was appreciated More irrigation with warm saline was achieved ,hemostasis was done, 2 pieces of Surgicel was then placed to completion hemostasis towards the right side of the abdomen and mid abdominal compartment, all count was completed for instruments,needles and sponges and closure was achieved by loop PDS ?2 irrigation of the skin and subcutaneous, then deep subdermal using 2-0 Vicryl, followed by skin antoinette for closure dry dressing was applied, leaving interrupted segments to be packed by a one inch nu gauze wet-to-dry dressing. Patient continued to be stable condition apart from the supraventricular arrhythmia where anesthesia was managing through the procedure, patient was then extubated and patient was then transferred to the intensive care unit in a stable condition, hospitalist and cardiology consultation were initiated for continuity of care. I Was present for the whole entire procedure
--- NOTE | 2021-03-21 08:29 | ECG_ITS ---
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 Measurements Intervals [place] Rate: 63 P: 83 NE: 158 QRS: 18 QRSD: 101 T: 48 QT: 538 QTc: 554 Interpretive Statements SINUS RHYTHM WITH FREQUENT SUPRAVENTRICULAR PREMATURE COMPLEXES PROLONGED QT INTERVAL CRITICAL TEST RESULT Compared to ECG 03/21/2021 05:12:13 Sinus bradycardia no longer present Electronically Signed On 03-21-2021 16:52:37 TRAFFIC MANAGER by Laisha Sherwood M.D. [id number]
[2021-03-21] MEDS: famotidine 20 mg/2 mL INJ IVP ×2 (08:40→19:59)
[2021-03-21] MEDS: morphine 4 mg/mL SDV 1 mL 2 MG IVP ×3 (08:41→19:58)
[2021-03-21] MEDS: sodium chloride 0.9% 1,000 ML 30 ML IV (08:57)
[2021-03-21 09:07] LABS: Magnesium 1.7 mg/dL (1.7-2.3)
--- NOTE | 2021-03-21 09:28 | PM.CONSULT ---
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 Bowel did not appear necrotic, but appeared dusky. At presentation did have noted rise in troponins, [id number]. Pain was reported mostly abdominal, and troponin rise was thought related possibly to demand ischemia. During induction she was reported to have episodes of SVT for which he received beta-ellen, subsequently heart rates staying on the lower side mostly in the 60s. Cardiology is consulted. She is currently admitted in ICU. She is somnolent, but wakes up to voice, reports she is sore in her abdomen, otherwise doing well. Denies chest pain or pressure. Denies trouble breathing. Denies past history of SVT or tachycardia. Reports history of TIA. Denies history of TN or stenting. Reports she is a former smoker, not currently. Reports that she takes 80 daily dose of 2 small aspirins. Also takes medication for her nerves and another medication she cannot remember. She drinks 3 glasses of wine nightly. Last stress test appears to been in 2014 with small area of scarring versus artifact. She lives with a significant other. In case could not make decisions for herself, states her daughters would be surrogate decision makers. Review of Systems Const: Denies: fever(s), chills, body aches or malaise Eyes: Denies: change in vision or eye redness ENMT: Denies: throat pain, oral sores or ear or mastoid pain Card: Denies: chest pain, edema, pre-syncope or dyspnea on exertion Resp: Denies: dyspnea, productive cough, change in phlegm color or hemoptysis GI: Denies: abdominal pain, nausea, vomiting, diarrhea, constipation, hematochezia or melena : Denies: flank pain, urinary frequency or hematuria Musc: Denies: back pain, joint swelling or joint redness Skin/Breast: Denies: rash, sores or new lesions Neuro: Denies: headache(s), numbness in extremities, weakness in extremities, dizziness, confusion or seizure-like activity Endo: Denies: polyuria or polydipsia Renard/Lymph: Denies: easy bleeding or purpura All/Imm: Denies: urticaria, throat swelling or tongue swelling Meds/Allergies Home Medications and Allergies Allergies Allergy/AdvReac Type Severity Reaction Status Date / Time No Known Allergies Allergy Verified 03/21/21 04:14 Current Medications Current Medications Generic Name Dose Route Start Last Admin Trade Name Freq PRN Reason Stop Dose Admin Famotidine 20 mg 03/21/21 08:00 03/21/21 08:40 Famotidine 20 Mg/2 Ml Inj IVP 20 mg Q12H JULIA Administration Sodium Chloride 1,000 mls @ 100 mls/hr 03/21/21 08:00 03/21/21 08:56 Sodium Chloride 0.9% IV Not Given .Q10H JULIA Piperacillin Sod/Tazobactam 50 mls @ 12.5 mls/hr 03/21/21 08:00 03/21/21 08:40 Sod 3.375 gm/ Sodium Chloride IV 12.5 mls/hr Q8H JULIA Administration Protocol Sodium Chloride 1,000 mls @ 30 mls/hr 03/21/21 08:45 03/21/21 08:57 Sodium Chloride 0.9% IV 03/22/21 08:44 30 mls/hr .Q24H JULIA Administration Morphine Sulfate 2 mg 03/21/21 07:53 03/21/21 08:41 Morphine 4 Mg/Ml Sdv 1 Ml IVP 2 mg Q1H PRN Administration SEVERE PAIN PFSH Acute PFSH: Medical History Anemia ANSELMO (generalized anxiety disorder) Macrocytosis PVD (peripheral vascular disease) Sciatica TIA (transient ischemic attack) Surgical History S/P IRASEMA-BSO Family History Daughter Healthy adult Social History Smoking and tobacco status: former smoker Alcohol intake: current Alcohol type: wine Alcohol use comment: 3 glasses nightly Lives independently: Yes Household members: significant other Marital status: / Vitals/I&O/Wt Last Vital Signs Temp 97.4 F L 03/21/21 08:10 Pulse 65 03/21/21 08:58 Resp 16 03/21/21 08:41 BP 140/68 03/21/21 08:10 Pulse Ox 96 03/21/21 08:58 03/20/21 03/21/21 03/21/21 22:59 06:59 14:59 Intake Total 50 / 50 1900 / 1900 Output Total 225 / 225 Balance 50 / 50 1675 / 1675 Weight last 48 hrs Weight 68.039 kg Physical Exam Const: COMMON NORMALS: no acute distress and patient oriented x3 HENMT: COMMON NORMALS: oropharynx normal Neck/C-Spine: COMMON NORMALS: no JVD Resp: COMMON NORMALS: normal respiratory effort and clear to auscultation bilaterally AUSCULTATION: clear to auscultation bilaterally Cardio: COMMON NORMALS: no JVD, regular rhythm, S1 normal heart sound present, S2 normal heart sound present and No murmurs present (Cardio) RHYTHM: regular rhythm HEART SOUNDS: S1 normal heart sound present and S2 normal heart sound present GI: PALPATION: Yes Tenderness to palpation present (GI) OTHER: Abdominal wound covered by clean dressing. Extremity: COMMON NORMALS: no joint enlargement and no pedal edema Neuro: COMMON NORMALS: patient oriented x3 and moves all extremities Skin: COMMON NORMALS: no rashes or lesions noted GENERAL SKIN EXAM: no rashes or lesions noted Urinary Catheter Management^: Garcia: Cath Placed During This Visit: yes Urinary Catheter Date of Insertion: 03/21/21 Urinary Catheter Time of Insertion: 05:50 A&P Assessment and plan (1) Cecal volvulus: S/p exploratory laparotomy with limited right hemicolectomy with ileocolic [id number] anastomosis. Bowel did not appear necrotic, but appeared dusky. Status: Acute (2) SVT (supraventricular tachycardia): During induction reported, although I do not see telemetry strips. Received beta-ellen. Subsequently heart rates in the 60s. Some sinus bradycardia appears to be chronic. Monitor on telemetry. Will give small dose potassium supplementation. Check magnesium and supplement if needed. Check TSH. We will obtain TTE. She reports drinking 3 glasses of wine nightly. Monitor for alcohol withdrawal. With troponin elevation, former smoker, history of TIA, would benefit from additional cardiac risk stratification. Status: Acute (3) Troponin level elevated: She is not having chest pain or pressure. Denies trouble breathing. Former smoker. History of TIA. Blood pressure is elevated on presentation, but unknown what baseline is. She states she normally very healthy. Obtain TTE. Would benefit from cardiac restart occasion. Discussed with surgery, aspirin may add to risk of anastomotic complication. Appreciate cardiology thoughts with regards to etiology of troponin elevation. Status: Acute (4) Sinus bradycardia: Check TSH Status: Acute Additional A&P Information Anxiety Hx TIA Consult Attestations Medical Necessity Statement: Continue admission for postsurgical care after right hemicolectomy due to cecal volvulus, additional cardiac assessment with SVT, abnormal troponin. Coding Level of Care Code Acute Apartment Rental Clerk for Amy Hubbard Diagnoses Cecal volvulus K56.2 SVT (supraventricular tachycardia) I47.1 Troponin level elevated R77.8 Sinus bradycardia R00.1
[2021-03-21] MEDS: acetaminophen 1,000 MG/100 ML PIGGYBACK 400 MG IV (09:33)
--- NOTE | 2021-03-21 09:41 | USCV_ITS ---
Keila Morena Age: 80 Gender: F : 1940 Exam Date: 03/21/2021 10:48 Ordering Phys: Logan Bobo MD Technologist: Dimple Hernandez Exam Location: [facility] [place] Indication: SVT, troponin elevated BP: 158 / 75 HR: 78 Rhythm: Sinus Technical Quality: Suboptimal MEASUREMENTS (Male / Female) Normal Values 2D ECHO LV Diastolic Diameter PLAX 3.7 cm 4.2 - 5.9 / 3.9 - 5.3 cm LV Systolic Diameter PLAX 2.1 cm LV Chamber Size 4.0 cm IVS Diastolic Thickness 1.3 cm 0.6 - 1.0 / 0.6 - 0.9 cm IVS Systolic Thickness 1.6 cm LVPW Diastolic Thickness 1.4 cm 0.6 - 1.0 / 0.6 - 0.9 cm LVPW Systolic Thickness 1.7 cm RV Chamber Size 2.1 cm LVOT Diameter 1.7 cm LV Ejection Fraction 2D Teich 76.1 % LA Diameter 3.2 cm LA Width 2.8 cm LA Height 4.7 cm RA Width 1.6 cm RA Height 4.4 cm Aorta at Sinotubular Diameter 2.7 cm M-MODE LV Diastolic Diameter MM 4.5 cm 4.2 - 5.9 / 3.9 - 5.3 cm LV Systolic Diameter MM 3.1 cm LV Ejection Fraction MM Teich 61.1 % IVS Diastolic Thickness MM 0.6 cm 0.6 - 1.0 / 0.6 - 0.9 cm IVS Systolic Thickness MM 1.1 cm LVPW Diastolic Thickness MM 1.0 cm 0.6 - 1.0 / 0.6 - 0.9 cm LVPW Systolic Thickness MM 1.6 cm RV Diastolic Diameter MM 0.9 cm Aortic Annulus Diameter 3.0 cm LA Ao Ratio MM 1.3 MV E Point Septal Separation 0.5 cm DOPPLER AV Peak Velocity 119.0 cm/s LVOT Peak Velocity 78.0 cm/s AV Area Cont Eq vti 1.7 cm squared AV Area Cont Eq pk 1.5 cm squared MV Area PHT 3.2 cm squared Mitral E to A Ratio 0.7 MV E' Velocity 36.5 cm/s Mitral E to MV E' Ratio 10.8 Mitral E to LV E' Lateral Ratio 11.6 Mitral E to LV E' Septal Ratio 10.2 TR Peak Velocity 227.0 cm/s TR Peak Gradient 20.6 mmHg TV Peak E Velocity 43.0 cm/s Right Atrial Pressure 3.0 mmHg Pulmonary Artery Systolic Pressu 23.6 mmHg RV Acceleration Time 0.1 s RV Ejection Time 0.3 s RV AcT/ET 0.4 FINDINGS Left Ventricle Normal left ventricular size and systolic function, EF 60% . Mild left ventricular hypertrophy. No regional wall motion abnormalities. Right Ventricle The right ventricle is normal in size and function. Right Atrium The right atrium is normal in size. Left Atrium Mildly increased left atrial size. Mitral Valve Mild mitral valve regurgitation. Aortic Valve Thickened aortic valve. Tricuspid Valve Mild tricuspid valve regurgitation. Pulmonic Valve No gross abnormalities noted Pericardium Trivial pericardial effusion. Aorta Normal ascending aorta dimension. CONCLUSIONS Normal left ventricular size and systolic function, EF 60% . Mild left ventricular hypertrophy. No regional wall motion abnormalities. Mildly increased left atrial size. Mild mitral valve regurgitation. Thickened aortic valve. Mild tricuspid valve regurgitation. Estimated pulmonary artery peak systolic pressure 24 mmHg Trace of pericardial effusion There are no intracardiac masses. No previous study is available for comparison. Dr Laisha Sherwood MD [facility] (Electronically Signed) Final Date: 21 March 2021 13:46 S
[2021-03-21 10:10] LABS: Thyroid Stimulating Hormone 4.61 uIU/mL (0.27-4.20)
[2021-03-21] MEDS: potassium chloride premix 100 ML 50 MEQ IV (11:04)
[2021-03-21 11:24] LABS: Add Urine Microscopic? NO; Charge for UA Resulting for Rev
[2021-03-21 11:29] LABS: Bilirubin Urine Neg (Negative); Blood Urine Neg (Negative); Glucose Urine UA Norm (Normal); Ketones Urine 1+ (Negative); Leukocyte Esterase Urine Negative (Negative); Nitrate Urine Negative (Negative); Protein Urine Neg (Negative); Urine Appearance Clear (CLEAR); Urine Color Straw (Yellow); Urobilinogen Urine Norm (Negative); pH Urine 7 (5-7)
[2021-03-21 12:29] LABS: Glucose Point of Care 147 mg/dL (70-110)
--- NOTE | 2021-03-21 14:22 | PM.CONSULT ---
Providers/Reason For Consult Consulting Physician/Specialty*: ASAD Sherwood MD/cardiology Reason for Consult*: Patient with tachycardia,? Supraventricular tachycardia and elevated troponin T Requesting Physician: Dr. Hopper/ Dr Crocker Attending Physician: Tariq Hopper MD Primary Care Provider: Bro Gómez MD History of Present Illness History of Present Illness Morena Pedraza is a 80 year old female who underwent a right hemicolectomy for cecal ileus today during the anesthesia induction, she had few episodes of SVT?. She received IV esmolol in the OR. Currently she is back into sinus rhythm. She was found to have elevated troponin T with significant delta. Cardiology consult is requested for further cardiac evaluation recommendations. She had episode of tachyarrhythmia while having the anesthesia induced for the abdominal surgery. During the procedure also, she had frequency and the duration of these episodes have not changed. Runs of supraventricular tachycardia. I do not have any rhythm strips available to review. This is based on the history given by Dr. Montiel. Apparently the heart rate was in the 120s. She was given IV esmolol and also labetalol. Currently the patient is in sinus rhythm. Has not had any significant tachyarrhythmia since the ICU admission. She was having a heart rate in the 40s after the IV esprolol and labetalol .Currently the heart rate is in the 60s and 70s. She never had any chest pain. No unusual shortness of breath. She had echocardiogram which revealed normal LV size ejection fraction. No significant wall motion abnormalities. This patient has no previous history for any cardiac illness. No history of hypertension, diabetes or dyslipidemia. She has been in her baseline state of health. Her brother had open heart surgery at age of 70. No other relevant family history. She has no smoking abuse, or any other substance abuse. She takes 3 glasses of wine every night. No fever or chills. No cough. No unusual shortness of breath. No orthopnea PND. Review of Systems Narrative: CONSTITUTIONAL: No fever or chills. EYES: No blurring of vision or other visual disturbances lately. ENT: No hoarseness of voice, auditory disturbances or sore throat. CARDIOVASCULAR: As mentioned above. RESPIRATORY: No significant cough. GASTROINTESTINAL: As mentioned above GENITOURINARY: No dysuria or hematuria. INTEGUMENTARY: No skin rashes or history of skin cancer. NEURO: No transient ischemic attacks or amaurosis. PSYCHIATRIC: No history of psychosis or major depression. HEMATOLOGIC: No bleeding disorders or significant anemia. ENDOCRINE: No history of polyuria or polydipsia. MUSCULOSKELETAL: No recent joint pain or swelling. ALLERGY/IMMUNOLOGY: As mentioned above. Meds/Allergies Home Medications and Allergies Home Medications Medication Instructions Recorded Confirmed Last Taken Type duloxetine 60 mg PO DAILY 03/21/21 03/22/21 Unknown History Allergies Allergy/AdvReac Type Severity Reaction Status Date / Time morphine AdvReac Intermediate ADR-Confusi Verified 03/22/21 05:11 on Current Medications Current Medications Generic Name Dose Route Start Last Admin Trade Name Freq PRN Reason Stop Dose Admin Famotidine 20 mg 03/21/21 08:00 03/21/21 08:40 Famotidine 20 Mg/2 Ml Inj IVP 20 mg Q12H JULIA Administration Sodium Chloride 1,000 mls @ 100 mls/hr 03/21/21 08:00 03/21/21 08:56 Sodium Chloride 0.9% IV Not Given .Q10H JULIA Piperacillin Sod/Tazobactam 50 mls @ 12.5 mls/hr 03/21/21 08:00 03/21/21 11:06 Sod 3.375 gm/ Sodium Chloride IV Infused Q8H JULIA Infusion Protocol Sodium Chloride 1,000 mls @ 30 mls/hr 03/21/21 08:45 03/21/21 08:57 Sodium Chloride 0.9% IV 03/22/21 08:44 30 mls/hr .Q24H JULIA Administration Morphine Sulfate 2 mg 03/21/21 07:53 03/21/21 08:41 Morphine 4 Mg/Ml Sdv 1 Ml IVP 2 mg Q1H PRN Administration SEVERE PAIN PFSH Acute PFSH: Medical History Anemia Blind left eye ANSELMO (generalized anxiety disorder) Macrocytosis PVD (peripheral vascular disease) Sciatica TIA (transient ischemic attack) Surgical History H/O eye surgery H/O knee surgery S/P IRASEMA-BSO Family History Daughter Healthy adult Social History Smoking and tobacco status: former smoker Alcohol intake: current Alcohol type: wine Alcohol use comment: 3 glasses nightly Lives independently: Yes Household members: significant other Marital status: / Vitals/I&O/Wt Last Vital Signs Temp 97.4 F L 03/21/21 08:36 Pulse 63 03/21/21 11:27 Resp 13 03/21/21 10:00 BP 158/75 03/21/21 10:00 Pulse Ox 98 03/21/21 10:00 03/20/21 03/21/21 03/21/21 22:59 06:59 14:59 Intake Total 50 / 50 2152 / 2152 Output Total 225 / 225 Balance 50 / 50 1927 / 1927 Weight last 48 hrs Weight 150 lb Weight 150 lb Physical Exam Narrative: EXAM NARRATIVE: GENERAL: The patient is alert and oriented times three. Not in any acute distress. HEENT: No significant pallor, icterus or lymphadenopathy. The pupils are reactant to light. Oral cavity: There are no mucous membrane lesions. Funduscopic examination: The fundus is not visualized NECK: Trachea appears to be central. No masses noted. No JVD or thyromegaly appreciated. No carotid bruit. RESPIRATORY: Chest is symmetrical. No intercostals muscle retraction or any accessory muscle activation. There is no chest wall tenderness. Breath sounds are heard bilaterally. No rales or rhonchi heard. No evidence of any consolidation. BREASTS: Deferred. HEART: The PMI is in the 5th left intercostals space just inside the midclavicular line. No palpable precordial events. S1 and S2 are normal. No S3 or S4 heard. No pericardial rub or any click heard. ABDOMEN: No vessel pulsations or distention. No tenderness. No organomegaly appreciated. No abdominal bruit. Bowel sounds are normally heard. : Deferred. RECTAL: Deferred. LYMPHATIC: No lymphadenopathy noted in the neck or groin. EXTREMITIES: No edema or cyanosis. No clubbing. The peripheral pulses are palpable in fairly good volume and amplitude. MUSCULOSKELETAL: No acute joint deformities or swelling SKIN: There are no significant scars or skin rash noted. NEUROPSYCHIATRIC: The patient is alert and oriented x3. Appears to be in a good mood. The higher functions are grossly within normal limits. No tremors or rigidity noted. Urinary Catheter Management^: Garcia: Cath Placed During This Visit: yes Urinary Catheter Date of Insertion: 03/21/21 Urinary Catheter Time of Insertion: 05:50 Data Labs: Other Labs: The EKG showed a sinus rhythm with frequent supraventricular ectopics. No significant ST-T changes. Imaging^: CT Abd/Pel: Radiologist's impression: 1. Cecal volvulus with significant cecal distention. However no perforation or pneumatosis. 2. Other chronic and incidental findings as described A&P Assessment and plan (1) Troponin level elevated: It could be related to the SVT causing type II HI. Possibility of underlying coronary ischemia cannot be excluded. My clinical suspicion may be low. Status: Acute (2) SVT (supraventricular tachycardia): Status: Acute (3) Status post partial colectomy: Status: Acute Additional A&P Information At this point, the patient may not require any specific intervention. We may start her on a small dose of beta-ellen tomorrow when she started taking oral medications. Also may consider doing a stress test as an outpatient to evaluate for any underlying coronary ischemia. At this point, she may be closely monitored on telemetry. Thank you for the opportunity to eval this patient make these recommendations Consult Attestations Medical Necessity Statement: Patient requires continued hospital stay for close monitoring and further management Coding Level of Care Code Acute General Office Assistant for Amy Hubbard History Detailed Exam Detailed Medical Decision Making Moderate Complexity Diagnoses Troponin level elevated R77.8 SVT (supraventricular tachycardia) I47.1 Status post partial colectomy Z90.49
[2021-03-21] MEDS: heparin 5,000 unit/mL INJ 1 mL 5000 UNIT SUBCUT (16:20)
[2021-03-21 17:13] LABS: Glucose Point of Care 125 mg/dL (70-110)
[2021-03-21] MEDS: sodium chloride 0.9% 1,000 ML 100 ML IV (18:44)
[2021-03-22] VITALS (23 sets, daily range): BP systolic 134–182; BP diastolic 77–98; PULSE 54–130; RESP 14–21; TEMP 36.6–36.8; O2SAT 95–100
[2021-03-22] MEDS: piperacillin-tazobactam 3.375 GM in sodium chloride 0.9% (plus) 50 ML IV ×3 (02:04→15:26)
[2021-03-22] MEDS: heparin 5,000 unit/mL INJ 1 mL 5000 UNIT SUBCUT ×2 (02:05→07:33)
[2021-03-22] MEDS: morphine 4 mg/mL SDV 1 mL 2 MG IVP (02:22)
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
[2021-03-22] MEDS: LORazepam 2 mg/mL INJ 1 mL 0.5 MG IVP (05:19)
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
[2021-03-22 06:30] LABS: Magnesium 1.9 mg/dL (1.7-2.3)
--- NOTE | 2021-03-22 06:30 | PC.NURSE ---
Attempted to get sitter for patient safety and no staff available to sit at bedside.
--- NOTE | 2021-03-22 06:52 | P.PN_ITS ---
Subjective Subjective: Interval history: Patient had some agitation over night and pulled out her Garcia catheter and her dressing, likely morphine induced was stopped by the hospitalist service. Also post anesthesia and surgery delirium can be a component in patient's age group. Currently does not complain of pain. No reported nausea or vomiting Adequate urine output Otherwise no acute events overnight Medications: Reviewed: Yes Vitals/I&O/Wt Last Vital Signs Temp 98.3 F 03/22/21 02:00 Pulse 130 H 03/22/21 06:00 Resp 21 H 03/22/21 03:15 BP 163/77 03/22/21 03:15 Pulse Ox 96 03/22/21 03:15 03/21/21 03/21/21 03/22/21 14:59 22:59 06:59 Intake Total 2152 / 2152 50 / 2202 Output Total 225 / 225 600 / 825 Balance 1927 / 192 -550 / 1377 Weight last 48 hrs Weight 150 lb Weight 150 lb Physical Exam Narrative: EXAM NARRATIVE: Patient is conscious alert oriented yet she is little confused. BMI 25 Head and neck examination PERRLA no masses no cervical lymphadenopathy no jaundice Cardiac examination audible S1-S2 no murmurs no gallops no arrhythmias Chest is clear bilateral,abscence of Rhonchi or wheezes,no surgical emphysema Abdomen nontender nondistended soft no organomegaly guarding or rigidity/no signs of peritonitis Incision is clean dry and intact and wound gaps are clean with packing in no surrounding cellulitis. Bowel sounds are positive Garcia catheter in place with clear urine Extremities no cyanosis no clubbing no edema Urinary Catheter Management^: Garcia: Cath Placed During This Visit: yes Reason for Continuing Indwelling Catheter: Accurate Measurement of Urinary Output in Critically Ill Patients Urinary Catheter Date of Insertion: 03/21/21 Urinary Catheter Time of Insertion: 20:00 Data : 03/20/21 22:37 03/20/21 23:42 A&P Assessment and plan (1) Status post partial colectomy: Assessment 80 years old female patient presented with cecal volvulus undergone exploratory laparotomy and a limited right hemicolectomy was done 03/21/2021. Patient sustained tachyarrhythmias that required ICU admission and cardiology and hospitalist service were consulted Plan From surgical standpoint of view we will start the patient on popsicles and ice I requested a sitter unfortunately were short staffed and no one is available at the moment If patient were to pull the Garcia catheter out again,we will keep it out I will switch the patient to offer Ofirmv 1 g every 8 hours as needed for pain and refrain from narcotic Encourage ambulation with assistance Continue pharmacologic DVT prophylaxis We will continue coordinating care with cardiology and hospitalist services A.m. labs are pending Continue Zosyn Assurance and education All questions have been answered and all concerns have been addressed to patient's satisfaction. Status: Acute Attestations Medical Necessity Statement*: Patient requiring inpatient hospitalization passing 2 midnights for medical and surgical care, ICU admission for tachyarrhythmias. Time Spent in Patient Care: 16 - 35 minutes (>than 50% of time spent in counselling and/or direct pt care on unit) . Coding Level of Care Code Acute Inventory Control Assistant for Chg Fwd Diagnoses Status post partial colectomy Z90.49
[2021-03-22] MEDS: sodium chloride 0.9% 1,000 ML 100 ML IV ×3 (07:16→19:01)
[2021-03-22 07:29] LABS: Anion Gap 12.8 (5-19); Blood Urea Nitrogen 12 mg/dL (8-23); Calcium 7.6 mg/dL (8.5-10.5); Carbon Dioxide 27 mmol/L (22-29); Chloride 106 mmol/L (98-107); Glucose 120 mg/dL (65-115); Osmolality Calculated 295 mOsm/kg (285-295); Potassium 3.8 mmol/L (3.5-5.1); Sodium 142 mmol/L (136-145)
[2021-03-22] MEDS: famotidine 20 mg/2 mL INJ IVP ×2 (07:33→20:27)
[2021-03-22] MEDS: acetaminophen 1,000 MG/100 ML PIGGYBACK 400 MG IV ×2 (07:33→22:51)
[2021-03-22 08:27] LABS: Basophils % 0.2 %; Eosinophils % 0.2 %; Hematocrit 30.9 % (37.0-47.0); Hemoglobin 9.7 g/dL (11.5-15.3); Lymphocytes # 1.8 10^3/uL (0.8-4.8); Lymphocytes % 13.8 %; Mean Corpuscular HGB Conc 31.4 g/dL (30.0-36.0); Mean Corpuscular Hemoglobin 34.3 pg (28.0-34.0); Mean Corpuscular Volume 109.2 fl (81-99); Mean Platelet Volume 10.4 fL (7.4-10.4); Monocytes # 1.4 10^3/uL (0.2-0.9); Monocytes % 11.1 %; Neutrophils # 9.52 10^3/uL (1.8-7.7); Neutrophils % 74.4 %; Nucleated Red Blood Cells % 0 %; Platelet Count 192 10^3/cmm (130-400); Red Blood Count 2.83 10^6/uL (4.1-5.3); Red Cell Distribution Width 12.3 % (12.1-15.1); White Blood Count 12.8 10^3/uL (4.0-10.0)
--- NOTE | 2021-03-22 11:31 | P.PN_ITS ---
Subjective Subjective: Interval history: She had a difficult night. Became confused. Pulled out her Garcia catheter, pulled off her dressing. Morphine was stopped. Received Ativan. This morning she wakes up to voice, for location states she is in clinic, states the year correctly. At this time appears calm and cooperative. Denies significant pain or discomfort. No trouble breathing. Vitals/I&O/Wt Last Vital Signs Temp 98.3 F 03/22/21 02:00 Pulse 130 H 03/22/21 06:00 Resp 21 H 03/22/21 03:15 BP 163/77 03/22/21 03:15 Pulse Ox 96 03/22/21 03:15 03/21/21 03/22/21 03/22/21 22:59 06:59 14:59 Intake Total 50 / 2202 1050 / 3252 100 / 100 Output Total 600 / 825 300 / 1125 Balance -550 / 1377 750 / 2127 100 / 100 Weight last 48 hrs Weight 68.039 kg Weight 68.039 kg Physical Exam 2 Const: COMMON NORMALS: no acute distress GENERAL APPEARANCE: cooperative OTHER: Except, minimally confused. HENMT: COMMON NORMALS: oropharynx normal Neck/C-Spine: COMMON NORMALS: no JVD Resp: COMMON NORMALS: normal respiratory effort and clear to auscultation bilaterally AUSCULTATION: clear to auscultation bilaterally Cardio: COMMON NORMALS: no JVD, regular rhythm, S1 normal heart sound present, S2 normal heart sound present and No murmurs present (Cardio) RHYTHM: regular rhythm HEART SOUNDS: S1 normal heart sound present and S2 normal heart sound present GI: PALPATION: Yes Tenderness to palpation present (GI) OTHER: Abdominal wound covered by clean dressing.Wound closed. No drainage, erythema. Extremity: COMMON NORMALS: no joint enlargement and no pedal edema Neuro: COMMON NORMALS: moves all extremities Skin: COMMON NORMALS: no rashes or lesions noted GENERAL SKIN EXAM: no rashes or lesions noted Urinary Catheter Management^: Garcia: Cath Placed During This Visit: yes Reason for Continuing Indwelling Catheter: Accurate Measurement of Urinary Output in Critically Ill Patients Urinary Catheter Date of Insertion: 03/21/21 Urinary Catheter Time of Insertion: 20:00 Data : 03/22/21 08:00 03/22/21 04:34 A&P Assessment and plan (1) Acute encephalopathy: Acute encephalopathy with delirium overnight, possibly medication related secondary morphine, possibly due to overall health condition surgery. Morphine discontinued. This morning wakes up easily, not entirely oriented, but otherwise calm, cooperative. Not in any discomfort. Continue postoperative care, supportive care. Also drinks 3 glasses of wine at night at home. In case of recurrence of symptoms consider alcohol withdrawal. UA was unremarkable. 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 Bowel did not appear necrotic, but appeared dusky. Awaiting return of bowel function. Status: Acute (3) SVT (supraventricular tachycardia): Cardiology recommendations appreciated. May not require any additional specific intervention. Once resuming oral intake, consider low-dose beta- ellen, although do so cautiously given already underlying bradycardia. May have been related to medical condition or anesthesia. During induction reported, although I do not see telemetry strips. Received beta-ellen. Subsequently heart rates in the 60s. Some sinus bradycardia appears to be chronic. Monitor on telemetry. Will give small dose potassium supplementation. Check magnesium and supplement if needed. Check TSH. TTE with EF 60%, no R WMA, mildly increased left atrial size, mild MVR, mild TV R, estimated pulmonary artery peak systolic pressure 24 mmHg, trace pericardial effusion. She reports drinking 3 glasses of wine nightly. Monitor for alcohol withdrawal. With troponin elevation, former smoker, history of TIA, would benefit from additional cardiac risk stratification. Status: Acute (4) Troponin level elevated: She is not having chest pain or pressure. Denies trouble breathing. Former smoker. History of TIA. Blood pressure is elevated on presentation, but unknown what baseline is. She states she normally very healthy. TTE with EF 60%, no R WMA, mildly increased left atrial size, mild MVR, mild TVR, estimated pulmonary artery peak systolic pressure 24 mmHg, trace pericardial effusion. Would benefit from cardiac risk stratification. Discussed with surgery, aspirin may add to risk of anastomotic complication. Appreciate cardiology thoughts with regards to etiology of troponin elevation. Status: Acute (5) Sinus bradycardia: Mildly abnormal TSH. Check free T4. Status: Acute (6) Status post partial colectomy: Status: Acute Additional A&P Information Anxiety Hx TIA Attestations Medical Necessity Statement*: Continue admission for postoperative care following partial hemicolectomy due to cecal volvulus, continue supportive care and assessment management of acute encephalopathy, monitoring following SVT. Coding Level of Care Code Acute Rehabilitation Program Coordinator for g Fwd Diagnoses Acute encephalopathy G93.40 Cecal volvulus K56.2 SVT (supraventricular tachycardia) I47.1 Troponin level elevated R77.8 Sinus bradycardia R00.1 Status post partial colectomy Z90.49
[2021-03-22 12:15] LABS: Free T4 Free Thyroxine 1.31 ng/dL (0.82-1.77)
[2021-03-22] MEDS: acetaminophen 1,000 MG/100 ML PIGGYBACK 200 MG IV (15:25)
[2021-03-22] MEDS: LORazepam 2 mg/mL INJ 1 mL IVP (15:42)
--- NOTE | 2021-03-22 15:51 | PC.NURSE ---
very agitation and restless tore off abdomenal dressing and pulling at clothes and cover hitting at staff informing she wanted to get out of here would at home cursing and not understanding events ativan given
--- NOTE | 2021-03-22 15:53 | ECG_ITS ---
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 Measurements Intervals [place] Rate: 80 P: 69 CO: 153 QRS: 3 QRSD: 82 T: 42 QT: 364 QTc: 422 Interpretive Statements SINUS RHYTHM WITH FREQUENT SUPRAVENTRICULAR PREMATURE COMPLEXES ABNORMAL RHYTHM ECG Compared to ECG 03/21/2021 08:44:36 Prolonged QT interval no longer present Electronically Signed On 03-22-2021 20:10:07 [employer] by Laisha Sherwood M.D. [id number]
[2021-03-22] MEDS: metoprolol tartrate 25 mg Tablet PO (16:11)
--- NOTE | 2021-03-22 17:27 | P.PN_ITS ---
Subjective Subjective: Interval history: Patient was confused and disoriented this morning. She had to be sedated. Has not had recurrence of SVT. This afternoon, she had an episode of SVT with a heart rate in the 150s. The heart rate went back into normal sinus rhythm within a few minutes. No EKG was performed. Medications: Reviewed: Yes Medication Review Details: Current Medications Famotidine (Famotidine 20 Mg/2 Ml Inj) 20 mg IVP Q12H [facility] Last Admin: 03/22/21 07:33 Dose: 20 mg Documented by: Fentanyl (Fentanyl 50 Mcg/Ml Inj 2ml) 25 mcg IVP Q2H PRN PRN Reason: SEVERE PAIN Folic Acid (Folic Acid 1 Mg Tablet) 1 mg PO DAILY [facility] Sodium Chloride (Sodium Chloride 0.9%) 1,000 mls @ 100 mls/hr IV .Q10H [facility] Last Admin: 03/22/21 07:16 Dose: 100 mls/hr Documented by: Piperacillin Sod/Tazobactam (Sod 3.375 gm/ Sodium Chloride) 50 mls @ 12.5 mls/hr IV Q8H [facility]; Protocol Last Admin: 03/22/21 15:26 Dose: 12.5 mls/hr Documented by: Acetaminophen (Acetaminophen) 1,000 mg in 100 mls @ 400 mls/hr IV Q8H [facility] Stop: 03/22/21 22:59 Last Infusion: 03/22/21 15:56 Dose: Infused Documented by: Lorazepam (Lorazepam 2 Mg/Ml Inj 1 Ml) 2 mg IM Q4H PRN; Protocol PRN Reason: ALCOWD Lorazepam (Lorazepam 2 Mg/Ml Inj 1 Ml) 2 mg IVP PRN PRN; Protocol PRN Reason: WITHDRAWAL Last Admin: 03/22/21 15:42 Dose: 2 mg Documented by: Lorazepam (Lorazepam 2 Mg Tablet) 2 mg PO Q4H PRN; Protocol PRN Reason: WITHDRAWAL Metoprolol Tartrate (Metoprolol Tartrate 25 Mg Tablet) 25 mg PO BID@0900,2100 [facility] Last Admin: 03/22/21 16:11 Dose: 25 mg Documented by: Multivitamins Therapeutic (Multivitamin Therapeutic Tablet) 1 tab PO DAILY [facility] Ondansetron HCl (Ondansetron 2 Mg/Ml Sdv 2 Ml) 4 mg IVP Q4H PRN PRN Reason: NAUSEA AND VOMITING Thiamine Mononitrate (Thiamine 100 Mg Tablet) 100 mg PO DAILY JULIA Vitals/I&O/Wt Last Vital Signs Temp 98.3 F 03/22/21 02:00 Pulse 130 H 03/22/21 14:00 Resp 21 H 03/22/21 03:15 BP 163/77 03/22/21 03:15 Pulse Ox 96 03/22/21 03:15 03/22/21 03/22/21 03/22/21 06:59 14:59 22:59 Intake Total 1050 / 3252 150 / 150 100 / 250 Output Total 300 / 1125 Balance 750 / 2127 150 / 150 100 / 250 Weight last 48 hrs Weight 150 lb Weight 150 lb Physical Exam Narrative: EXAM NARRATIVE: GENERAL: The patient is alert and oriented times three. Not in any acute distress. HEENT: No significant pallor, icterus or lymphadenopathy. The pupils are symmetrical oral cavity: There are no mucous membrane lesions. NECK: Trachea appears to be central. No masses noted. No JVD or thyromegaly appreciated. No carotid bruit. RESPIRATORY: Chest is symmetrical. No intercostals muscle retraction or any accessory muscle activation. There is no chest wall tenderness. Breath sounds are heard bilaterally. No rales or rhonchi heard. No evidence of any consolidation. BREASTS: Deferred. HEART: The PMI is in the 5th left intercostals space just inside the midclavicular line. No palpable precordial events. S1 and S2 are normal. No S3 or S4 heard. No pericardial rub or any click heard. ABDOMEN: The abdomen is bandaged. Bowel sounds are diminished. : Deferred. RECTAL: Deferred. LYMPHATIC: No lymphadenopathy noted in the neck or groin. EXTREMITIES: No edema or cyanosis. No clubbing. MUSCULOSKELETAL: No acute joint deformities or swelling SKIN: There are no significant scars or skin rash noted. NEUROPSYCHIATRIC: The patient is alert and oriented x3. Appears to be in a good mood. The higher functions are grossly within normal limits. No tremors or rigidity noted. Urinary Catheter Management^: Garcia: Cath Placed During This Visit: yes Reason for Continuing Indwelling Catheter: Accurate Measurement of Urinary Output in Critically Ill Patients Urinary Catheter Date of Insertion: 03/21/21 Urinary Catheter Time of Insertion: 20:00 Data : 03/22/21 08:00 03/22/21 04:34 Other Labs: Laboratory Last Values WBC 12.8 10^3/uL (4.0-10.0) H 03/22/21 08:00 RBC 2.83 10^6/uL (4.1-5.3) L 03/22/21 08:00 Hgb 9.7 g/dL (11.5-15.3) L 03/22/21 08:00 Hct 30.9 % (37.0-47.0) L 03/22/21 08:00 MCV 109.2 fl (81-99) H 03/22/21 08:00 MCH 34.3 pg (28.0-34.0) H 03/22/21 08:00 MCHC 31.4 g/dL (30.0-36.0) 03/22/21 08:00 RDW 12.3 % (12.1-15.1) 03/22/21 08:00 Plt Count 192 10^3/cmm (130-400) 03/22/21 08:00 MPV 10.4 fL (7.4-10.4) 03/22/21 08:00 Neut % (Auto) 74.4 % 03/22/21 08:00 Lymph % (Auto) 13.8 % 03/22/21 08:00 [place] % (Auto) 11.1 % 03/22/21 08:00 Eos % (Auto) 0.2 % 03/22/21 08:00 Baso % (Auto) 0.2 % 03/22/21 08:00 Neut # (Auto) 9.52 10^3/uL (1.8-7.7) H 03/22/21 08:00 Lymph # (Auto) 1.8 10^3/uL (0.8-4.8) 03/22/21 08:00 [place] # (Auto) 1.4 10^3/uL (0.2-0.9) H 03/22/21 08:00 Eos # (Auto) 0.0 10^3/uL (0.0-0.8) 03/22/21 08:00 Baso # (Auto) 0.0 10^3/uL (0.0-0.1) 03/22/21 08:00 Nucleated RBC % (auto) 0 % 03/22/21 08:00 Nucleated RBCs # 0.0 /100WBC 03/22/21 08:00 PT 12.90 SECONDS (12.1-14.9) 03/21/21 01:40 INR 0.94 (0.8-1.2) 03/21/21 01:40 Sodium 142 mmol/L (136-145) 03/22/21 04:34 Potassium 3.8 mmol/L (3.5-5.1) 03/22/21 04:34 Chloride 106 mmol/L (98-107) 03/22/21 04:34 Carbon Dioxide 27 mmol/L (22-29) 03/22/21 04:34 Anion Gap 12.8 (5-19) 03/22/21 04:34 BUN 12 mg/dL (8-23) 03/22/21 04:34 Creatinine 0.7 mg/dL (0.5-0.9) 03/22/21 04:34 GFR Calculation Not Reportable 03/22/21 04:34 Glucose 120 mg/dL (65-115) H 03/22/21 04:34 POC Glucose 125 mg/dL (70-110) H 03/21/21 16:59 Random Glucose Cancelled 03/20/21 23:42 Calculated Osmolality 295 mOsm/kg (285-295) 03/22/21 04:34 Lactic Acid 0.9 mmol/L (0.5-2.2) 03/21/21 01:15 Lactate 1.1 mmol/L (0.5-2.2) 03/20/21 22:37 Calcium 7.6 mg/dL (8.5-10.5) L 03/22/21 04:34 Magnesium 1.9 mg/dL (1.7-2.3) 03/22/21 04:34 Total Bilirubin 0.5 mg/dL (0.15-1.2) 03/21/21 04:18 Direct Bilirubin 0.20 mg/dL (0.00-0.30) 03/21/21 04:18 AST 17 U/L (0-32) 03/21/21 04:18 ALT 11 U/L (0-33) 03/21/21 04:18 Alkaline Phosphatase 63 IU/L (35-105) 03/21/21 04:18 Troponin T Baseline 14 ng/L (0-10) H 03/20/21 22:37 Troponin T 120 Minute 24.87 ng/L (0-10) H 03/21/21 01:15 Delta Troponin T 10.87 ABS# (0-10) H* 03/21/21 01:15 Troponin T Hi Sens 6Hr 31.31 ng/L (0-10) H 03/21/21 04:18 Troponin T Hi Sens 6Hr Delta 17.31 ng/L (0-12) H* 03/21/21 04:18 Total Protein 6.6 g/dL (6.6-8.7) 03/21/21 04:18 Albumin 4.0 g/dL (3.5-5.2) 03/21/21 04:18 Globulin 2.6 g/dL (1.3-4.6) 03/21/21 04:18 Lipase 33 U/L (13-60) 03/20/21 23:42 TSH 4.61 uIU/mL (0.27-4.20) H 03/21/21 04:50 Free T4 1.31 ng/dL (0.82-1.77) 03/22/21 04:34 Urine Color Straw (Yellow) 03/20/21 10:45 Urine Appearance Clear (CLEAR) 03/20/21 10:45 Urine pH 7 (5-7) 03/20/21 10:45 Ur Specific [place] 1.010 (1.005-1.030) 03/20/21 10:45 Urine Protein Neg (Negative) 03/20/21 10:45 Urine Glucose (UA) Norm (Normal) 03/20/21 10:45 Urine Ketones 1+ (Negative) H 03/20/21 10:45 Urine Blood Neg (Negative) 03/20/21 10:45 Urine Nitrate Negative (Negative) 03/20/21 10:45 Urine Bilirubin Neg (Negative) 03/20/21 10:45 Urine Urobilinogen Norm mg/dL (Negative) 03/20/21 10:45 Ur Leukocyte Esterase Negative (Negative) 03/20/21 10:45 Blood Type A Positive 03/21/21 01:40 Rho(D) Type Positive 03/21/21 01:40 Antibody Screen Negative 03/21/21 01:40 A&P Assessment and plan (1) Troponin level elevated: It could be related to the SVT causing type II [place]. Possibility of underlying coronary ischemia cannot be excluded. My clinical suspicion may be low. Since the patient has no chest pain or any EKG evidence of ischemia, I may hold off on any special treatment at this point. Consider doing a myocardial perfusion imaging, as an outpatient. Status: Acute (2) SVT (supraventricular tachycardia): Patient may start on metoprolol 25 mg p.o. twice daily. She needs to be monitored on telemetry. Status: Acute (3) Status post partial colectomy: Management as per the primary. Status: Acute Additional A&P Information Patient will be monitored on telemetry. Her vital signs will be closely watched. We may consider doing a myocardial imaging as an outpatient. Based on the clinical progress, further management decisions will be made Attestations Medical Necessity Statement*: Disposition as per the primary attending Coding Level of Care Code Acute Burn Nurse for Chg Fwd History Detailed Exam Detailed Medical Decision Making Moderate Complexity Diagnoses Troponin level elevated R77.8 SVT (supraventricular tachycardia) I47.1 Status post partial colectomy Z90.49
[2021-03-23] VITALS (27 sets, daily range): BP systolic 109–179; BP diastolic 60–106; PULSE 56–129; RESP 14–24; TEMP 36.6–37.4; O2SAT 92–100
[2021-03-23] MEDS: piperacillin-tazobactam 3.375 GM in sodium chloride 0.9% (plus) 50 ML IV ×4 (01:08→23:11)
[2021-03-23] MEDS: LORazepam 2 mg/mL INJ 1 mL IVP ×2 (04:46→10:42)
[2021-03-23] MEDS: sodium chloride 0.9% 1,000 ML 100 ML IV ×2 (04:49→19:56)
[2021-03-23 06:11] LABS: Basophils % 0.3 %; Eosinophils # 0.2 10^3/uL (0.0-0.8); Eosinophils % 1.6 %; Hematocrit 31.3 % (37.0-47.0); Hemoglobin 9.9 g/dL (11.5-15.3); Lymphocytes # 1.7 10^3/uL (0.8-4.8); Mean Corpuscular HGB Conc 31.6 g/dL (30.0-36.0); Mean Corpuscular Hemoglobin 34.4 pg (28.0-34.0); Mean Corpuscular Volume 108.7 fl (81-99); Mean Platelet Volume 10.2 fL (7.4-10.4); Monocytes # 1.1 10^3/uL (0.2-0.9); Monocytes % 9.9 %; Neutrophils # 7.76 10^3/uL (1.8-7.7); Neutrophils % 71.9 %; Nucleated Red Blood Cells % 0 %; Platelet Count 195 10^3/cmm (130-400); Red Blood Count 2.88 10^6/uL (4.1-5.3); White Blood Count 10.8 10^3/uL (4.0-10.0)
[2021-03-23 06:29] LABS: Anion Gap 10.7 (5-19); Blood Urea Nitrogen 7 mg/dL (8-23); Calcium 7.7 mg/dL (8.5-10.5); Carbon Dioxide 26 mmol/L (22-29); Chloride 106 mmol/L (98-107); Glucose 79 mg/dL (65-115); Osmolality Calculated 285 mOsm/kg (285-295); Potassium 3.7 mmol/L (3.5-5.1); Sodium 139 mmol/L (136-145)
--- NOTE | 2021-03-23 08:26 | PM.PN ---
Subjective Subjective: Interval history: Patient overall seems to be feeling better, shows little bit of confusion but more alert. Trending down of leukocytosis and adequate urine output. Did not pass gas yet Medications: Reviewed: Yes Vitals/I&O/Wt Last Vital Signs Temp 97.9 F 03/23/21 06:00 Pulse 90 03/23/21 06:00 Resp 20 H 03/23/21 06:00 BP 161/86 03/23/21 06:00 Pulse Ox 96 03/23/21 06:00 03/22/21 03/23/21 03/23/21 22:59 06:59 14:59 Intake Total 1163.333 / 1836.288 7371 / 2463.333 Output Total 1000 / 1000 650 / 1650 Balance 163.333 / 313.333 500 / 813.333 Weight last 48 hrs Weight 150 lb Physical Exam Narrative: EXAM NARRATIVE: Patient is conscious alert oriented yet she is still little confused. BMI 25 Head and neck examination PERRLA no masses no cervical lymphadenopathy no jaundice Cardiac examination audible S1-S2 no murmurs no gallops no arrhythmias Chest is clear bilateral,abscence of Rhonchi or wheezes,no surgical emphysema Abdomen nontender nondistended soft no organomegaly guarding or rigidity/no signs of peritonitis Incision is clean dry and intact and wound gaps are clean with packing in no surrounding cellulitis. Dressing change was done bedside by me Bowel sounds are positive Garcia catheter in place with clear urine Extremities no cyanosis no clubbing no edema Urinary Catheter Management^: Garcia: Cath Placed During This Visit: yes, but has since been removed by the nurse Reason for Continuing Indwelling Catheter: Accurate Measurement of Urinary Output in Critically Ill Patients Urinary Catheter Date of Insertion: 03/21/21 Urinary Catheter Time of Insertion: 20:00 Date Urinary Catheter Removed: 03/23/21 Time Urinary Catheter Discontinued: 06:03 Data : 03/23/21 06:02 03/23/21 06:02 A&P Assessment and plan (1) Status post partial colectomy: Assessment 80 years old female patient presented with cecal volvulus undergone exploratory laparotomy and a limited right hemicolectomy was done 03/21/2021. Patient sustained tachyarrhythmias that required ICU admission and cardiology and hospitalist service were consulted Plan From surgical standpoint of view we will continue the patient on popsicles and ice once patient passes gas we will start her slowly on clear liquid diet and protein shakes Patient still requiring a sitter DC Garcia catheter Encourage ambulation with assistance Still holding on DVT prophylaxis, stable H&H and will continue SCDs We will continue coordinating care with cardiology and hospitalist services Continue Zosyn Assurance and education All questions have been answered and all concerns have been addressed to patient's satisfaction. Status: Acute Attestations Medical Necessity Statement*: Patient requiring inpatient hospitalization passing 2 midnights for medical and surgical care, ICU admission for tachyarrhythmias. Requiring sitter one-on-one Time Spent in Patient Care: 16 - 35 minutes (>than 50% of time spent in counselling and/or direct pt care on unit). Coding Level of Care Code Acute Tire Service Technician for Chg Fwd Diagnoses Status post partial colectomy Z90.49
--- NOTE | 2021-03-23 09:00 | PM.PN ---
Subjective Subjective: Interval history: Patient has been having episodes of agitations/delirium. Also had episodes of tachycardia on the monitor appeared to be PAT. currently she seems to be in sinus rhythm. Medications: Reviewed: Yes Medication Review Details: Current Medications Famotidine (Famotidine 20 Mg/2 Ml Inj) 20 mg IVP Q12H [facility] Last Admin: 03/22/21 20:27 Dose: 20 mg Documented by: Fentanyl (Fentanyl 50 Mcg/Ml Inj 2ml) 25 mcg IVP Q2H PRN PRN Reason: SEVERE PAIN Folic Acid (Folic Acid 1 Mg Tablet) 1 mg PO DAILY [facility] Sodium Chloride (Sodium Chloride 0.9%) 1,000 mls @ 100 mls/hr IV .Q10H [facility] Last Admin: 03/23/21 04:49 Dose: 100 mls/hr Documented by: Piperacillin Sod/Tazobactam (Sod 3.375 gm/ Sodium Chloride) 50 mls @ 12.5 mls/hr IV Q8H [facility]; Protocol Last Infusion: 03/23/21 04:50 Dose: Infused Documented by: Lorazepam (Lorazepam 2 Mg/Ml Inj 1 Ml) 2 mg IM Q4H PRN; Protocol PRN Reason: ALCOWD Lorazepam (Lorazepam 2 Mg/Ml Inj 1 Ml) 2 mg IVP PRN PRN; Protocol PRN Reason: WITHDRAWAL Last Admin: 03/23/21 04:46 Dose: 2 mg Documented by: Lorazepam (Lorazepam 2 Mg Tablet) 2 mg PO Q4H PRN; Protocol PRN Reason: WITHDRAWAL Metoprolol Tartrate (Metoprolol Tartrate 25 Mg Tablet) 25 mg PO BID@0900,2100 [facility] Last Admin: 03/22/21 20:39 Dose: Not Given Documented by: Multivitamins Therapeutic (Multivitamin Therapeutic Tablet) 1 tab PO DAILY [facility] Ondansetron HCl (Ondansetron 2 Mg/Ml Sdv 2 Ml) 4 mg IVP Q4H PRN PRN Reason: NAUSEA AND VOMITING Thiamine Mononitrate (Thiamine 100 Mg Tablet) 100 mg PO DAILY [facility] Vitals/I&O/Wt Last Vital Signs Temp 97.9 F 03/23/21 06:00 Pulse 90 03/23/21 06:00 Resp 20 H 03/23/21 06:00 BP 161/86 03/23/21 06:00 Pulse Ox 96 03/23/21 06:00 03/22/21 03/23/21 03/23/21 22:59 06:59 14:59 Intake Total 1163.333 / 1722.729 9505 / 2463.333 Output Total 1000 / 1000 650 / 1650 Balance 163.333 / 313.333 500 / 813.333 Weight last 48 hrs Weight 150 lb Physical Exam Narrative: EXAM NARRATIVE: GENERAL: The patient is alert and oriented times three. Not in any acute distress. HEENT: No significant pallor, icterus or lymphadenopathy. The pupils are symmetrical oral cavity: There are no mucous membrane lesions. NECK: Trachea appears to be central. No masses noted. No JVD or thyromegaly appreciated. No carotid bruit. RESPIRATORY: Chest is symmetrical. No intercostals muscle retraction or any accessory muscle activation. There is no chest wall tenderness. Breath sounds are heard bilaterally. No rales or rhonchi heard. No evidence of any consolidation. BREASTS: Deferred. HEART: The PMI is in the 5th left intercostals space just inside the midclavicular line. No palpable precordial events. S1 and S2 are normal. No S3 or S4 heard. No pericardial rub or any click heard. ABDOMEN: The abdomen is bandaged. Good bowel sounds. : Deferred. RECTAL: Deferred. LYMPHATIC: No lymphadenopathy noted in the neck or groin. EXTREMITIES: No edema or cyanosis. No clubbing. MUSCULOSKELETAL: No acute joint deformities or swelling SKIN: There are no significant scars or skin rash noted. NEUROPSYCHIATRIC: The patient is alert and oriented x3. Appears to be in a good mood. The higher functions are grossly within normal limits. No tremors or rigidity noted. Urinary Catheter Management^: Garcia: Cath Placed During This Visit: yes, but has since been removed by the nurse Reason for Continuing Indwelling Catheter: Accurate Measurement of Urinary Output in Critically Ill Patients Urinary Catheter Date of Insertion: 03/21/21 Urinary Catheter Time of Insertion: 20:00 Date Urinary Catheter Removed: 03/23/21 Time Urinary Catheter Discontinued: 06:03 Data : 03/23/21 06:02 03/23/21 06:02 Other Labs: Laboratory Last Values WBC 10.8 10^3/uL (4.0-10.0) H 03/23/21 06:02 RBC 2.88 10^6/uL (4.1-5.3) L 03/23/21 06:02 Hgb 9.9 g/dL (11.5-15.3) L 03/23/21 06:02 Hct 31.3 % (37.0-47.0) L 03/23/21 06:02 MCV 108.7 fl (81-99) H 03/23/21 06:02 MCH 34.4 pg (28.0-34.0) H 03/23/21 06:02 MCHC 31.6 g/dL (30.0-36.0) 03/23/21 06:02 RDW 12.0 % (12.1-15.1) L 03/23/21 06:02 Plt Count 195 10^3/cmm (130-400) 03/23/21 06:02 MPV 10.2 fL (7.4-10.4) 03/23/21 06:02 Neut % (Auto) 71.9 % 03/23/21 06:02 Lymph % (Auto) 16.0 % 03/23/21 06:02 [place] % (Auto) 9.9 % 03/23/21 06:02 Eos % (Auto) 1.6 % 03/23/21 06:02 Baso % (Auto) 0.3 % 03/23/21 06:02 Neut # (Auto) 7.76 10^3/uL (1.8-7.7) H 03/23/21 06:02 Lymph # (Auto) 1.7 10^3/uL (0.8-4.8) 03/23/21 06:02 [place] # (Auto) 1.1 10^3/uL (0.2-0.9) H 03/23/21 06:02 Eos # (Auto) 0.2 10^3/uL (0.0-0.8) 03/23/21 06:02 Baso # (Auto) 0.0 10^3/uL (0.0-0.1) 03/23/21 06:02 Nucleated RBC % (auto) 0 % 03/23/21 06:02 Nucleated RBCs # 0.0 /100WBC 03/23/21 06:02 PT 12.90 SECONDS (12.1-14.9) 03/21/21 01:40 INR 0.94 (0.8-1.2) 03/21/21 01:40 Sodium 139 mmol/L (136-145) 03/23/21 06:02 Potassium 3.7 mmol/L (3.5-5.1) 03/23/21 06:02 Chloride 106 mmol/L (98-107) 03/23/21 06:02 Carbon Dioxide 26 mmol/L (22-29) 03/23/21 06:02 Anion Gap 10.7 (5-19) 03/23/21 06:02 BUN 7 mg/dL (8-23) L 03/23/21 06:02 Creatinine 0.5 mg/dL (0.5-0.9) 03/23/21 06:02 GFR Calculation Not Reportable 03/23/21 06:02 Glucose 79 mg/dL (65-115) 03/23/21 06:02 POC Glucose 125 mg/dL (70-110) H 03/21/21 16:59 Random Glucose Cancelled 03/20/21 23:42 Calculated Osmolality 285 mOsm/kg (285-295) 03/23/21 06:02 Lactic Acid 0.9 mmol/L (0.5-2.2) 03/21/21 01:15 Lactate 1.1 mmol/L (0.5-2.2) 03/20/21 22:37 Calcium 7.7 mg/dL (8.5-10.5) L 03/23/21 06:02 Magnesium 1.9 mg/dL (1.7-2.3) 03/22/21 04:34 Total Bilirubin 0.5 mg/dL (0.15-1.2) 03/21/21 04:18 Direct Bilirubin 0.20 mg/dL (0.00-0.30) 03/21/21 04:18 AST 17 U/L (0-32) 03/21/21 04:18 ALT 11 U/L (0-33) 03/21/21 04:18 Alkaline Phosphatase 63 IU/L (35-105) 03/21/21 04:18 Troponin T Baseline 14 ng/L (0-10) H 03/20/21 22:37 Troponin T 120 Minute 24.87 ng/L (0-10) H 03/21/21 01:15 Delta Troponin T 10.87 ABS# (0-10) H* 03/21/21 01:15 Troponin T Hi Sens 6Hr 31.31 ng/L (0-10) H 03/21/21 04:18 Troponin T Hi Sens 6Hr Delta 17.31 ng/L (0-12) H* 03/21/21 04:18 Total Protein 6.6 g/dL (6.6-8.7) 03/21/21 04:18 Albumin 4.0 g/dL (3.5-5.2) 03/21/21 04:18 Globulin 2.6 g/dL (1.3-4.6) 03/21/21 04:18 Lipase 33 U/L (13-60) 03/20/21 23:42 TSH 4.61 uIU/mL (0.27-4.20) H 03/21/21 04:50 Free T4 1.31 ng/dL (0.82-1.77) 03/22/21 04:34 Urine Color Straw (Yellow) 03/20/21 10:45 Urine Appearance Clear (CLEAR) 03/20/21 10:45 Urine pH 7 (5-7) 03/20/21 10:45 Ur Specific [place] 1.010 (1.005-1.030) 03/20/21 10:45 Urine Protein Neg (Negative) 03/20/21 10:45 Urine Glucose (UA) Norm (Normal) 03/20/21 10:45 Urine Ketones 1+ (Negative) H 03/20/21 10:45 Urine Blood Neg (Negative) 03/20/21 10:45 Urine Nitrate Negative (Negative) 03/20/21 10:45 Urine Bilirubin Neg (Negative) 03/20/21 10:45 Urine Urobilinogen Norm mg/dL (Negative) 03/20/21 10:45 Ur Leukocyte Esterase Negative (Negative) 03/20/21 10:45 Blood Type A Positive 03/21/21 01:40 Rho(D) Type Positive 03/21/21 01:40 Antibody Screen Negative 03/21/21 01:40 A&P Assessment and plan (1) Troponin level elevated: It could be related to the SVT causing type II NE. Possibility of underlying coronary ischemia cannot be excluded. My clinical suspicion may be low. Since the patient has no chest pain or any EKG evidence of ischemia, I may hold off on any special treatment at this point. Consider doing a myocardial perfusion imaging, as an outpatient. Status: Acute (2) Elevated blood pressure reading: Currently the blood pressure is stage II.. May continue on the current dose of the metoprolol. I may add lisinopril 10 mg daily for better control blood pressure. Status: Acute (3) SVT (supraventricular tachycardia): Patient seems to be tolerating the metoprolol so far well. Status: Acute (4) Status post partial colectomy: Management as per the primary. Status: Acute Additional A&P Information Patient will be monitored on telemetry. Her vital signs will be closely watched. We may consider doing a myocardial imaging as an outpatient. Based on the clinical progress, further management decisions will be made Attestations Medical Necessity Statement*: Deferred to the primary Coding Level of Care Code Acute Test Data Developer for Chg Fwd History Expanded Problem Focused Exam Detailed Medical Decision Making Moderate Complexity Diagnoses Troponin level elevated R77.8 Elevated blood pressure reading R03.0 SVT (supraventricular tachycardia) I47.1 Status post partial colectomy Z90.49
[2021-03-23] MEDS: famotidine 20 mg/2 mL INJ IVP ×2 (09:20→19:56)
[2021-03-23] MEDS: metoprolol tartrate 25 mg Tablet PO ×2 (09:21→20:01)
[2021-03-23] MEDS: multivitamin therapeutic Tablet 1 TAB PO (09:21)
[2021-03-23] MEDS: folic acid 1 mg Tablet PO (09:21)
[2021-03-23] MEDS: thiamine 100 mg Tablet PO (09:21)
--- NOTE | 2021-03-23 10:31 | PC.CHAP ---
Pastoral Care Encounter/Spiritual Assessment Type of Contact [] Declined mathematics faculty member visit [] Patient/Family/Request visit [] Outpatient visit [] Follow-up visit [] Physician referral [] Code/Alert [x] Routine visit [] Staff referral [] Actively dying [x] Patient sleeping [] Family support [] [] Out of room [] Palliative care [] [] Receiving care in room [] Pre-surgical visit [] Trauma [] Long length of stay [x] ICU visit [] Other: Relational/Emotional Strength [] Patient feels connected with others/family/visitors/staff [] Distress [] Loneliness/isolation [] Abandonment Spirituality of Patient [] Person of Aide [] Attends Church of their Aide [] Believes in Prayer [] Reads Bible or Rastafari materials [] There are Spiritual issues to be addressed Director Digital Advertising Interventions [x] Prayer [] Active listening [] Non-anxious presence [] Spiritual/emotional support [] Crisis/trauma care [] Spiritual counseling [] Bereavement support [] Provided bereavement packet [] Provided Bible/devotional materials [] Provided toy/stuffed animal, coloring book to patient or family member [] Provided Communion [] Anointing/[place] [] Salvation [x] Completed spiritual assessment [] Other: Impact on Illness or Injury [] Angry [] Fearful [] Anxious [] Often cries [] Exhaustion [] Unable to work [] Unable to attend hindu [] Unable to walk/stand [] Unable to read [] Unable to drive [] Unable to eat/drink [] Unable to sleep [] Unable to be with family [] Patient intubated [] Other: Summary Time spent with patient
[2021-03-23 10:32] LABS: Iron 20 ug/dL (37-145); Percent Saturation 9.3 % (20-50); Total Iron Binding Capacity 215 mcg/dl; Unsaturated Iron Binding 195 ug/dL (112-347)
[2021-03-23] MEDS: lanolin oint 7 gm 1 APPLIC TOPICAL (10:41)
[2021-03-23] MEDS: morphine 4 mg/mL SDV 1 mL 1 MG IVP (11:22)
[2021-03-23] MEDS: dexmedeTOMIDine 0.9 % NaCL 400 MCG/100 ML PREMIX IV (11:55)
--- NOTE | 2021-03-23 13:31 | PC.NURSE ---
Patient has become increasingly agitated. Frequently tryin to get out of bed, occaisonally yelling, forgetting that she is in the hospital and stating she needs to go home. Pulling off lines. Nurse administered morphone for pain, and ativan. Patient continues to become more agitated. Nurse bladder scanned patient and it shows 0mL. Nurse alerted Dr Kaur and received an order for precedex. No higher than 0.1
--- NOTE | 2021-03-23 14:28 | PC.NURSE ---
Nurse reduced precedex form 0.1 to 0.05, then eventually turned off. Patient became agitated again. Pulling off lines, attempting to get out of bed when she cannot safely do so herself. Angry that she cannot go home and doesn't understand why she is here. Patient's mental status is labile. It is common for the patient to calm be able to answer all orientation questions correctly, but then will later become confused and agitated, and not know where she is.
--- NOTE | 2021-03-23 14:35 | PC.NURSE ---
NUrse discontinued morphine order per Dr hung. REcent agitation may an adverse reaction to morphine. Currently giving precedex.
--- NOTE | 2021-03-23 17:49 | PM.PN ---
Subjective Subjective: Interval history: Hospital course, labs appreciated. Seen multiple times during the day. In morning patient awake alert able to have complete conversation. Looks jittery and mildly anxious. Complaining of abdominal pain. During the day patient became agitated and confused over started on low Precedex drip. Vitals/I&O/Wt Last Vital Signs Temp 99.4 F 03/23/21 13:00 Pulse 69 03/23/21 14:00 Resp 21 H 03/23/21 14:00 BP 151/98 03/23/21 14:00 Pulse Ox 92 03/23/21 14:00 03/23/21 03/23/21 03/23/21 06:59 14:59 22:59 Intake Total 1150 / 2463.333 104.76 / 104.76 7.423 / 112.183 Output Total 650 / 1650 200 / 200 Balance 500 / 813.333 -95.24 / -95.24 7.423 / -87.817 Physical Exam Const: COMMON NORMALS: no acute distress GENERAL APPEARANCE: cooperative OTHER: Except, minimally confused. HENMT: COMMON NORMALS: oropharynx normal Neck/C-Spine: COMMON NORMALS: no JVD Resp: COMMON NORMALS: normal respiratory effort and clear to auscultation bilaterally AUSCULTATION: clear to auscultation bilaterally Cardio: COMMON NORMALS: no JVD, regular rhythm, S1 normal heart sound present, S2 normal heart sound present and No murmurs present (Cardio) RHYTHM: regular rhythm HEART SOUNDS: S1 normal heart sound present and S2 normal heart sound present GI: PALPATION: Yes Tenderness to palpation present (GI) OTHER: Abdominal wound covered by clean dressing.Wound closed. No drainage, erythema. Extremity: COMMON NORMALS: no joint enlargement and no pedal edema Neuro: COMMON NORMALS: moves all extremities Skin: COMMON NORMALS: no rashes or lesions noted GENERAL SKIN EXAM: no rashes or lesions noted Urinary Catheter Management^: Garcia: Cath Placed During This Visit: yes, but has since been removed by the nurse Reason for Continuing Indwelling Catheter: Accurate Measurement of Urinary Output in Critically Ill Patients Urinary Catheter Date of Insertion: 03/21/21 Urinary Catheter Time of Insertion: 20:00 Date Urinary Catheter Removed: 03/23/21 Time Urinary Catheter Discontinued: 06:03 Data : 03/23/21 06:02 03/23/21 06:02 A&P Assessment and plan (1) Acute encephalopathy: Acute encephalopathy with delirium overnight, possibly medication related secondary morphine, possibly postoperative delirium but cannot rule out alcohol withdrawal. Patient drinks at least 3 glasses of wine at home nightly. Discontinue morphine. Oral pain medication. WA protocol. Precedex drip. We will try to wean off as soon as possible. No signs of sepsis. UA unremarkable. Start home dose of Cymbalta. Add Seroquel nightly along with trazodone as needed for insomnia. 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 Bowel did not appear necrotic, but appeared dusky. Awaiting return of bowel function. Status: Acute (3) SVT (supraventricular tachycardia): Cardiology recommendations appreciated. May not require any additional specific intervention. Continue metoprolol 25 mg twice daily. Monitor on telemetry. Will give small dose potassium supplementation. Check magnesium and supplement if needed. Check TSH. TTE with EF 60%, no R WMA, mildly increased left atrial size, mild MVR, mild TVR, estimated pulmonary artery peak systolic pressure 24 mmHg, trace pericardial effusion. She reports drinking 3 glasses of wine nightly. Monitor for alcohol withdrawal. With troponin elevation, former smoker, history of TIA, would benefit from additional cardiac risk stratification. Status: Acute (4) Troponin level elevated: She is not having chest pain or pressure. Denies trouble breathing. Former smoker. History of TIA. Blood pressure is elevated on presentation, but unknown what baseline is. She states she normally very healthy. TTE with EF 60%, no R WMA, mildly increased left atrial size, mild MVR, mild TVR, estimated pulmonary artery peak systolic pressure 24 mmHg, trace pericardial effusion. Would benefit from cardiac risk stratification. Discussed with surgery, aspirin may add to risk of anastomotic complication. Appreciate cardiology thoughts with regards to etiology of troponin elevation. Status: Acute (5) Sinus bradycardia: Mildly abnormal TSH. Free T4 normal. Status: Acute (6) Status post partial colectomy: Status: Acute Additional A&P Information Anxiety Hx TIA Attestations Medical Necessity Statement*: As per primary team. Further hospitalization for acute metabolic encephalopathy and postoperative status, Time Spent in Patient Care: Greater than 35 minutes (>than 50% of time spent in counselling and/or direct pt care on unit). Coding Level of Care Code Acute Plating Inspector for Chg Fwd Diagnoses Acute encephalopathy G93.40 Cecal volvulus K56.2 SVT (supraventricular tachycardia) I47.1 Troponin level elevated R77.8 Sinus bradycardia R00.1 Status post partial colectomy Z90.49
[2021-03-23 18:13] LABS: Glucose Point of Care 88 mg/dL (70-110)
--- NOTE | 2021-03-23 19:24 | PC.NURSE ---
Patient has been weaned off of precedex and is no longer agitated. michael hung ordered a straight cath in case agitation was caused by urinary retention. Straight cath produced 100 mL.
--- NOTE | 2021-03-23 19:25 | PC.NURSE ---
SHIft summary: SUrgical incision is healing well. No signs of infection. scant amound of serous drainage. No fevers throughout the day. Bowel sounds are heard in all 4 quadrants, patient has started passing gas, and has had small smear bowel movements. Patient's orientation has been labile throughout the day, but mostly agitated. Agitation was likely worsened by morphine so that has been discontinued. Precedex was started and patient became calm after that. Around 5pm, the patient was weaned off of precedex and she remained calm.
[2021-03-23] MEDS: trazodone 50 mg Tablet PO (20:01)
[2021-03-23] MEDS: quetiapine 25 mg Tablet PO (20:01)
[2021-03-23 21:14] LABS: Glucose Point of Care 122 mg/dL (70-110)
[2021-03-23] MEDS: haloperidol inj 5 mg/mL INJ 1 mL IVP (23:34)
[2021-03-24] VITALS (29 sets, daily range): BP systolic 93–172; BP diastolic 53–102; PULSE 54–107; RESP 15–27; TEMP 36.7–37.3; O2SAT 81–97
[2021-03-24] MEDS: LORazepam 2 mg/mL INJ 1 mL IVP (00:43)
[2021-03-24] MEDS: haloperidol inj 5 mg/mL INJ 1 mL 1 MG IVP (02:06)
[2021-03-24] MEDS: fentaNYL 50 mcg/mL INJ 2mL 25 MCG IVP (02:35)
--- NOTE | 2021-03-24 02:43 | PC.NURSE ---
Patient has been agitated since family left around 2029, she began getting up out of bed, picking/pulling at her wires. Patient reassured and educated on importance of waiting on staff to help take patient to the bathroom to prevent falls and importance of medical devices for care. Patient taken to the bathroom frequently. Approximately 0030 Patient began to kick staff, thrash in bed, scream. Ativan given per CIWA orders, haldol given as ordered for delirium. MD notified, ordered to restart precedex gtt, 1mg haldol. Patient continued kicking, biting, thrashing in bed, banging head against rails. Bed rails padded, patient reoriented, reassured of safety. Bilateral soft limb restraints applied as ordered. Fentanyl given as ordered for pain.
[2021-03-24 05:33] LABS: Alanine Aminotransferase 7 U/L (0-33); Albumin Level 3.1 g/dL (3.5-5.2); Alkaline Phosphatase 39 IU/L (35-105); Anion Gap 19.2 (5-19); Aspartate Amino Transferase 12 U/L (0-32); Blood Urea Nitrogen 8 mg/dL (8-23); Calcium 7.7 mg/dL (8.5-10.5); Carbon Dioxide 19 mmol/L (22-29); Chloride 109 mmol/L (98-107); Globulin 2.3 g/dL (1.3-4.6); Glucose 93 mg/dL (65-115); Osmolality Calculated 296 mOsm/kg (285-295); Potassium 3.2 mmol/L (3.5-5.1); Sodium 144 mmol/L (136-145); Total Bilirubin 0.6 mg/dL (0.15-1.2); Total Protein 5.4 g/dL (6.6-8.7)
[2021-03-24 05:38] LABS: Chol HDL Ratio 2.64 mg/dL (0.0-4.40); Cholesterol 161 mg/dL (0-200); HDL Cholesterol 61 mg/dL (60-100); LDL Cholesterol Calculated 79 mg/dL (50-129); Triglycerides 106 mg/dL (0-150); VLDL Cholestrol Calculation 21 mg/dL (0-30)
[2021-03-24 05:48] LABS: Basophils % 0.3 %; Eosinophils # 0.2 10^3/uL (0.0-0.8); Eosinophils % 2.3 %; Hematocrit 28.4 % (37.0-47.0); Hemoglobin 9.1 g/dL (11.5-15.3); Lymphocytes # 1.1 10^3/uL (0.8-4.8); Lymphocytes % 11.8 %; Mean Corpuscular Hemoglobin 34.5 pg (28.0-34.0); Mean Corpuscular Volume 107.6 fl (81-99); Mean Platelet Volume 10.9 fL (7.4-10.4); Monocytes # 1.1 10^3/uL (0.2-0.9); Monocytes % 11.5 %; Neutrophils # 6.87 10^3/uL (1.8-7.7); Neutrophils % 73.5 %; Nucleated Red Blood Cells % 0 %; Platelet Count 195 10^3/cmm (130-400); Red Blood Count 2.64 10^6/uL (4.1-5.3); Red Cell Distribution Width 11.9 % (12.1-15.1); White Blood Count 9.4 10^3/uL (4.0-10.0)
--- NOTE | 2021-03-24 06:03 | PC.NURSE ---
Patient experience delirium see previous note. This AM seen by Dr Hopper, midline abdomen dressing packed and changed. Patient temporarily in restraints and precedex. Removed this AM, patient is following commands however still confused about situation, time, and date. VSS at this time.
[2021-03-24 06:19] LABS: Estmated Average Glucose 103; Hemoglobin A1C 5.2 % (4.0-6.0)
[2021-03-24] MEDS: piperacillin-tazobactam 3.375 GM in sodium chloride 0.9% (plus) 50 ML IV ×3 (09:05→23:11)
[2021-03-24] MEDS: famotidine 20 mg/2 mL INJ IVP ×2 (09:13→20:48)
[2021-03-24] MEDS: lisinopril 10 mg Tablet PO (09:13)
[2021-03-24] MEDS: duloxetine 60 mg Capsule PO (09:14)
[2021-03-24] MEDS: metoprolol tartrate 25 mg Tablet PO ×2 (09:14→20:53)
[2021-03-24] MEDS: multivitamin therapeutic Tablet 1 TAB PO (09:14)
[2021-03-24] MEDS: folic acid 1 mg Tablet PO (09:14)
[2021-03-24] MEDS: thiamine 100 mg Tablet PO (09:15)
--- NOTE | 2021-03-24 09:17 | P.PN_ITS ---
Subjective Subjective: Interval history: Patient continues to show worsening delirious effect and confusion, yet from surgical standpoint of view she had multiple bowel movements and passing gas. Medications: Reviewed: Yes Vitals/I&O/Wt Last Vital Signs Temp 98.5 F 03/24/21 04:00 Pulse 61 03/24/21 06:00 Resp 16 03/24/21 06:00 BP 133/71 03/24/21 06:00 Pulse Ox 95 03/24/21 05:30 03/23/21 03/24/21 03/24/21 22:59 06:59 14:59 Intake Total 1057.423 / 1162.183 145.867 / 1308.050 Output Total 126 / 326 Balance 931.423 / 836.183 145.867 / 982.050 Physical Exam Narrative: EXAM NARRATIVE: Patient is conscious alert oriented yet she is still confused and delirious. BMI 25 Head and neck examination PERRLA no masses no cervical lymphadenopathy no jaundice Cardiac examination audible S1-S2 no murmurs no gallops no arrhythmias Chest is clear bilateral,abscence of Rhonchi or wheezes,no surgical emphysema Abdomen nontender nondistended soft no organomegaly guarding or rigidity/no signs of peritonitis Incision is clean dry and intact and wound gaps are clean with packing in no surrounding cellulitis. Dressing change was done bedside by me the help of the nursing staff Bowel sounds are positive Extremities no cyanosis no clubbing no edema Urinary Catheter Management^: Garcia: Cath Placed During This Visit: yes, but has since been removed by the nurse Reason for Continuing Indwelling Catheter: Accurate Measurement of Urinary Output in Critically Ill Patients Urinary Catheter Date of Insertion: 03/21/21 Urinary Catheter Time of Insertion: 20:00 Date Urinary Catheter Removed: 03/23/21 Time Urinary Catheter Discontinued: 06:03 Data : 03/24/21 04:26 03/24/21 04:20 A&P Assessment and plan (1) Status post partial colectomy: Assessment 80 years old female patient presented with cecal volvulus undergone exploratory laparotomy and a limited right hemicolectomy was done 03/21/2021. Patient sustained tachyarrhythmias that required ICU admission and cardiology and hospitalist service were consulted Plan We will advance to full liquid diet and make sure that patient gets protein shakes with every meal to optimize her nutrition and improve her healing potential Patient still requiring a sitter Encourage ambulation with assistance Still holding on DVT prophylaxis, stable H&H and will continue SCDs We will continue coordinating care with cardiology and hospitalist services Continue Zosyn Assurance and education All questions have been answered and all concerns have been addressed to patient's satisfaction. Status: Acute Attestations Medical Necessity Statement*: Patient requiring inpatient hospitalization passing 2 midnights for medical and surgical care, ICU admission for tachyarrhythmias. Requiring sitter one-on-one Time Spent in Patient Care: 16 - 35 minutes (>than 50% of time spent in counselling and/or direct pt care on unit) . Coding Level of Care Code Acute Didactic Program In Dietetics Director for Chg Fwd Diagnoses Status post partial colectomy Z90.49
--- NOTE | 2021-03-24 10:32 | CT_ITS ---
WS: [id number] CT head wo con* [id number] REASON FOR EXAM: delirium IV CONTRAST ADMINISTERED: Noncontrast. TOTAL EXAM DLP: 1663.[address] scans at [facility] use at least one of these dose optimization techniques: automat ed exposure control; mA and/or kV adjustment per patient size (includes targeted exams where dose is matched to clinical indication); or iterative reconstruction. FINDINGS: Bony calvarium and base of the skull intact without focal abnormality. Calcification in the hyperinte nsity of the presumed nonfunctional left ocular globe. No midline shift or other significant mass effect. No findings of intracranial hemorrhage. 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 No acute diffuse or focal brain parenchymal abnormali ty is identified. Mild dilatation of the ventricles and CSF spaces of the brain. CT/CT head wo con* [id number] IMPRESSION: Changes of the aging brain without acute intracranial abnormality noted.
[2021-03-24] MEDS: dextrose 5%-ns + KCl 20 20 MEQ/1,000 ML BAG 50 MEQ IV (11:16)
[2021-03-24 12:22] LABS: Rapid Plasma Reagin Syphilis Nonreactive (Nonreactive)
[2021-03-24 13:57] LABS: Vitamin B12 2000 pg/mL (232-1245)
--- NOTE | 2021-03-24 14:42 | P.PN_ITS ---
Subjective Subjective: Interval history: Patient seen multiple times today. Family at bedside. Overnight patient had episodes of confusion and agitation for which she required up to 1.5 mg of Haldol in divided doses and was restarted on Precedex. Patient was also given 25 mcg of fentanyl. Along with 2 mg of IV Ativan. On examination at first patient was sleeping in bed. Prior to that patient was awake alert though drowsy and had gone to the restroom by herself with assistance from nursing staff. Patient did have a bowel movement. When again later seen that day patient awake, drowsy less confused. Precedex drip was stopped at around 6 AM. Patient has remained hemodynamically stable and afebrile. Patient transitioned over to medical service on request from Dr. Hopper. He will continue to follow Medications: Reviewed: Yes Vitals/I&O/Wt Last Vital Signs Temp 98.0 F 03/24/21 09:00 Pulse 66 03/24/21 10:00 Resp 18 03/24/21 10:00 BP 143/70 03/24/21 11:00 Pulse Ox 96 03/24/21 10:00 03/23/21 03/24/21 03/24/21 22:59 06:59 14:59 Intake Total 1057.423 / 1162.183 145.867 / 8954.602 7811 / 1100 Output Total 126 / 326 300 / 300 Balance 931.423 / 836.183 145.867 / 982.050 800 / 800 Physical Exam Const: COMMON NORMALS: no acute distress GENERAL APPEARANCE: cooperative OTHER: Except, minimally confused. HENMT: COMMON NORMALS: oropharynx normal Neck/C-Spine: COMMON NORMALS: no JVD Resp: COMMON NORMALS: normal respiratory effort and clear to auscultation bilaterally AUSCULTATION: clear to auscultation bilaterally Cardio: COMMON NORMALS: no JVD, regular rhythm, S1 normal heart sound present, S2 normal heart sound present and No murmurs present (Cardio) RHYTHM: regular rhythm HEART SOUNDS: S1 normal heart sound present and S2 normal heart sound present GI: PALPATION: Yes Tenderness to palpation present (GI) OTHER: Abdominal wound covered by clean dressing.Wound closed. No drainage, erythema. Extremity: COMMON NORMALS: no joint enlargement and no pedal edema Neuro: COMMON NORMALS: moves all extremities Skin: COMMON NORMALS: no rashes or lesions noted GENERAL SKIN EXAM: no ra shes or lesions noted Urinary Catheter Management^: Garcia: Cath Placed During This Visit: yes, but has since been removed by the nurse Reason for Continuing Indwelling Catheter: Accurate Measurement of Urinary Output in Critically Ill Patients Urinary Catheter Date of Insertion: 03/21/21 Urinary Catheter Time of Insertion: 20:00 Date Urinary Catheter Removed: 03/23/21 Time Urinary Catheter Discontinued: 06:03 Data : 03/24/21 04:26 03/24/21 04:20 A&P Assessment and plan (1) Acute encephalopathy: Acute metabolic encephalopathy with delirium: Most likely a combination of postoperative delirium along with alcohol withdrawal. Cannot rule out sundowning Confirm with patient's family. Patient is only on Cymbalta at home. Patient drinks at least 3 glasses of wine at home nightly. Discontinue morphine. Oral pain medication. [facility] protocol. Precedex drip. We will try to wean as possible. For possible history of PTSD stop Cymbalta. Patient is only on minimal dose. Can transition over to Zoloft 100 mg from tomorrow. Seroquel 50 mg nightly. Trazodone as needed. No signs of infection. White count trending down to normal. UA unremarkable. Patient has remained afebrile. Patient already on Zosyn for postoperative care. Check CT head to rule out bleed or stroke though unlikely. Check vitamin B12, folate, RPR. 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 Bowel did not appear necrotic, but appeared dusky. Awaiting return of bowel function. Status: Acute (3) SVT (supraventricular tachycardia): Cardiology recommendations appreciated. May not require any additional specific intervention. Continue metoprolol 25 mg twice daily. Monitor on telemetry. Will give small dose potassium supplementation. Check magnesium and supplement if needed. Check TSH. TTE with EF 60%, no R WMA, mildly increased left atrial size, mild MVR, mild TVR, estimated pulmonary artery peak systolic pressure 24 mmHg, trace pericardial effusion. She reports drinking 3 glasses of wine nightly. Monitor for alcohol withdrawal. With troponin elevation, former smoker, history of TIA, would benefit from additional cardiac risk stratification. Status: Acute (4) Troponin level elevated: She is not having chest pain or pressure. Denies trouble breathing. Former smoker. History of TIA. Blood pressure is elevated on presentation, but unknown what baseline is. She states she normally very healthy. TTE with EF 60%, no R WMA, mildly increased left atrial size, mild MVR, mild TVR, estimated pulmonary artery peak systolic pressure 24 mmHg, trace pericardial effusion. Would benefit from cardiac risk stratification. Discussed with surgery, aspirin may add to risk of anastomotic complication. Appreciate cardiology thoughts with regards to etiology of troponin elevation. Status: Acute (5) Sinus bradycardia: Mildly abnormal TSH. Free T4 normal. Status: Acute (6) Status post partial colectomy: Status: Acute Additional A&P Information Anxiety Hx TIA Plan for today: Precedex as needed. Transfer to [facility]. Switch to Zoloft, stop Cymbalta. Increase Seroquel to 50 mg. Continue with Zosyn. Advance diet as per surgical team. Patient's care discussed in detail with her primary caregiver Mr. Ley. As per recommendation with Mr. Ley he is also currently hospitalized for a surgical procedure. He is okay with patient's daughter Ms. Capps making medical decisions. Ms. Capps present at bedside. Discussed the possible reason for patient delirium. All the questions were answered. We did discuss that unfortunately if it is because of postoperative delirium sometimes resolution can take up to couple of weeks. We also discussed we are trying to rule out any other organic reason. Discharge planning: SNF versus home health. Attestations Medical Necessity Statement*: Requires further hospitalization for postoperative care, postoperative delirium versus alcohol withdrawal Time Spent in Patient Care: Greater than 35 minutes (>than 50% of time spent in counselling and/or direct pt care on unit) . Coding Level of Care Code Acute Passenger Barge Master for g Fwd Exam Comprehensive Diagnoses Acute encephalopathy G93.40 Cecal volvulus K56.2 SVT (supraventricular tachycardia) I47.1 Troponin level elevated R77.8 Sinus bradycardia R00.1 Status post partial colectomy Z90.49
--- NOTE | 2021-03-24 17:11 | PC.SOCIAL ---
IMM UPDATED Got IMM signed by daughter then dated and initialed and copied, copy given to daughter other placed in chart.
[2021-03-24] MEDS: ferrous gluconate 324 mg Tablet PO (17:56)
--- NOTE | 2021-03-24 18:16 | PC.NURSE ---
PAtient had a bowel movement. The adhesive edges on the abdominal dressing were soiled by feces. Nurse redressed and cleaned wound No fecal matter entered the abdominal wound.
--- NOTE | 2021-03-24 18:19 | PC.NURSE ---
Shift Summary: Overall uneventful shift. Patient has active bowel sounds in all quadrants, no signs of infection evident in vitals or at surgical incision site. Patient was confused for the vast majority of the day, but is more easily redirected compared to yesterday and is having occasional periods of orientation lasting 5-6 minutes. Patient has had a total of 900mL of output today, a mix of urine and feces. FEcal matter mixed with urine is now mucoid. It was liquid yesterday. No episodes of SVT noted today.
--- NOTE | 2021-03-24 18:56 | PM.PN ---
Subjective Subjective: Interval history: Patient seems to be little more alert today. No more episodes of SVT/PAT. Vital signs remained stable. Medications: Reviewed: Yes Medication Review Details: Current Medications Acetaminophen (Acetaminophen 325 Mg Tablet) 650 mg PO Q6H PRN PRN Reason: MILD PAIN Famotidine (Famotidine 20 Mg/2 Ml Inj) 20 mg IVP Q12H JULIA Last Admin: 03/24/21 09:13 Dose: 20 mg Documented by: Ferrous Gluconate (Ferrous Gluconate 324 Mg Tablet) 324 mg PO BIDWM JLUIA Last Admin: 03/24/21 17:56 Dose: 324 mg Documented by: Folic Acid (Folic Acid 1 Mg Tablet) 1 mg PO DAILY JULIA Last Admin: 03/24/21 09:14 Dose: 1 mg Documented by: Haloperidol Lactate (Haloperidol Inj 5 Mg/Ml Inj 1 Ml) 0.5 mg IVP Q6H PRN PRN Reason: AGITATION Last Admin: 03/23/21 23:34 Dose: 0.5 mg Documented by: Piperacillin Sod/Tazobactam (Sod 3.375 gm/ Sodium Chloride) 50 mls @ 12.5 mls/hr IV Q8H JULIA; Protocol Last Admin: 03/24/21 17:56 Dose: 12.5 mls/hr Documented by: dexmedeTOMIDine 0.9 % NaCL (Precedex) 400 mcg in 100 mls @ 0 mls/hr IV .Q0M JULIA; Protocol Last Titration: 03/24/21 18:10 Dose: 0.1 mcg/kg/hr, 1.7 mls/hr Documented by: Potassium Chloride/Dextrose/Sod Cl (Dextrose 5%-Ns + Kcl 20) 20 meq in 1,000 mls @ 50 mls/hr IV .Q20H JULIA Last Admin: 03/24/21 11:16 Dose: 50 mls/hr Documented by: Lanolin (Lanolin Oint 7 Gm) 1 applic TOPICAL PRN PRN PRN Reason: DRYNESS Last Admin: 03/23/21 10:41 Dose: 1 appful Documented by: Lisinopril (Lisinopril 10 Mg Tablet) 10 mg PO DAILY JULIA Last Admin: 03/24/21 09:13 Dose: 10 mg Documented by: Lorazepam (Lorazepam 2 Mg/Ml Inj 1 Ml) 2 mg IM Q4H PRN; Protocol PRN Reason: ALCOWD Lorazepam (Lorazepam 2 Mg/Ml Inj 1 Ml) 2 mg IVP PRN PRN; Protocol PRN Reason: WITHDRAWAL Last Admin: 03/24/21 00:43 Dose: 2 mg Documented by: Lorazepam (Lorazepam 2 Mg Tablet) 2 mg PO Q4H PRN; Protocol PRN Reason: WITHDRAWAL Metoprolol Tartrate (Metoprolol Tartrate 25 Mg Tablet) 25 mg PO BID@0900,2100 [facility] Last Admin: 03/24/21 09:14 Dose: 25 mg Documented by: Multivitamins Therapeutic (Multivitamin Therapeutic Tablet) 1 tab PO DAILY [facility] Last Admin: 03/24/21 09:14 Dose: 1 tab Documented by: Ondansetron HCl (Ondansetron 2 Mg/Ml Sdv 2 Ml) 4 mg IVP Q4H PRN PRN Reason: NAUSEA AND VOMITING Quetiapine Fumarate (Quetiapine 25 Mg Tablet) 25 mg PO BEDTIME [facility] Last Admin: 03/23/21 20:01 Dose: 25 mg Documented by: Quetiapine Fumarate (Quetiapine 100 Mg Tablet) 50 mg PO BEDTIME [facility] Sertraline HCl (Sertraline 100 Mg Tablet) 100 mg PO DAILY [facility] Thiamine Mononitrate (Thiamine 100 Mg Tablet) 100 mg PO DAILY [facility] Last Admin: 03/24/21 09:15 Dose: 100 mg Documented by: Trazodone HCl (Trazodone 50 Mg Tablet) 50 mg PO BEDTIME PRN PRN Reason: insomnia Last Admin: 03/23/21 20:01 Dose: 50 mg Documented by: Vitals/I&O/Wt Last Vital Signs Temp 99 F 03/24/21 18:00 Pulse 100 03/24/21 18:00 Resp 23 H 03/24/21 18:00 BP 131/60 03/24/21 18:00 Pulse Ox 97 03/24/21 18:00 03/24/21 03/24/21 03/24/21 06:59 14:59 22:59 Intake Total 145.867 / 5457.594 9779 / 1250 440 / 1690 Output Total 600 / 600 300 / 900 Balance 145.867 / 982.050 650 / 650 140 / 790 Physical Exam Narrative: EXAM NARRATIVE: GENERAL: The patient is alert and oriented times three. Not in any acute distress. HEENT: No significant pallor, icterus or lymphadenopathy. The pupils are symmetrical oral cavity: There are no mucous membrane lesions. NECK: Trachea appears to be central. No masses noted. No JVD or thyromegaly appreciated. No carotid bruit. RESPIRATORY: Chest is symmetrical. No intercostals muscle retraction or any accessory muscle activation. There is no chest wall tenderness. Breath sounds are heard bilaterally. No rales or rhonchi heard. No evidence of any consolidation. BREASTS: Deferred. HEART: The PMI is in the 5th left intercostals space just inside the midclavicular line. No palpable precordial events. S1 and S2 are normal. No S3 or S4 heard. No pericardial rub or any click heard. ABDOMEN: The abdomen is bandaged. Good bowel sounds. : Deferred. RECTAL: Deferred. LYMPHATIC: No lymphadenopathy noted in the neck or groin. EXTREMITIES: No edema or cyanosis. No clubbing. MUSCULOSKELETAL: No acute joint deformities or swelling SKIN: There are no significant scars or skin rash noted. NEUROPSYCHIATRIC: No focal motor deficits Urinary Catheter Management^: Garcia: Cath Placed During This Visit: yes, but has since been removed by the nurse Reason for Continuing Indwelling Catheter: Accurate Measurement of Urinary Output in Critically Ill Patients Urinary Catheter Date of Insertion: 03/21/21 Urinary Catheter Time of Insertion: 20:00 Date Urinary Catheter Removed: 03/23/21 Time Urinary Catheter Discontinued: 06:03 Data : 03/24/21 04:26 03/24/21 04:20 A&P Assessment and plan (1) Troponin level elevated: It could be related to the SVT causing type II DC. Possibility of underlying coronary ischemia cannot be excluded. My clinical suspicion may be low. Since the patient has no chest pain or any EKG evidence of ischemia, I may hold off on any special treatment at this point. Consider doing a myocardial perfusion imaging, as an outpatient. Status: Acute (2) Elevated blood pressure reading: Currently the blood pressure is in the normal limits. May continue on the current medications. Status: Acute (3) SVT (supraventricular tachycardia): Patient seems to be tolerating the metoprolol so far well. Status: Acute (4) Status post partial colectomy: Management as per the primary. Status: Acute Additional A&P Information Other problems are Hypokalemia Anemia Potassium supplement Continue on the current dose of the metoprolol. Attestations Medical Necessity Statement*: Disposition as per the primary Coding Level of Care Code Acute Tool Lapper Hand for Chg Fwd History Expanded Problem Focused Exam Detailed Medical Decision Making Low Complexity Diagnoses Troponin level elevated R77.8 Elevated blood pressure reading R03.0 SVT (supraventricular tachycardia) I47.1 Status post partial colectomy Z90.49
[2021-03-24] MEDS: quetiapine 25 mg Tablet PO (20:48)
[2021-03-24] MEDS: quetiapine 100 mg Tablet 50 MG PO (20:48)
[2021-03-24] MEDS: dexmedeTOMIDine 0.9 % NaCL 400 MCG/100 ML PREMIX IV (20:54)
[2021-03-24] MEDS: trazodone 50 mg Tablet PO (23:11)
[2021-03-25] VITALS (26 sets, daily range): BP systolic 115–186; BP diastolic 63–123; PULSE 50–91; RESP 15–25; TEMP 36.3–36.9; O2SAT 93–97
[2021-03-25] MEDS: dexmedeTOMIDine 0.9 % NaCL 400 MCG/100 ML PREMIX IV (05:01)
--- NOTE | 2021-03-25 05:31 | PC.NURSE ---
Shift note. Pt very confused and restless throughout the night. Only oriented to Person and birthday but will follow commands. She continuously tried to get out of bed and was yelling at the nurses. Pt is on precedex. Pt was reoriented many times throughout the shift. Pt educated on fall risk and importance of call light use.
--- NOTE | 2021-03-25 07:07 | PC.NURSE ---
Report received, assessment completed. VSS. PT AAOx3. Disoriented to place, reoriented PRN. Answers questions appropriately and makes needs known. Precedex and D5 infusing to RAC PIV. CLWR, SRx3, HOB elevated. Will monitor.
[2021-03-25 08:03] LABS: Basophils % 0.4 %; Eosinophils # 0.4 10^3/uL (0.0-0.8); Eosinophils % 4.7 %; Hematocrit 30.4 % (37.0-47.0); Lymphocytes # 1.6 10^3/uL (0.8-4.8); Lymphocytes % 21.7 %; Mean Corpuscular HGB Conc 32.9 g/dL (30.0-36.0); Mean Corpuscular Hemoglobin 34.7 pg (28.0-34.0); Mean Corpuscular Volume 105.6 fl (81-99); Mean Platelet Volume 10.7 fL (7.4-10.4); Monocytes # 0.9 10^3/uL (0.2-0.9); Monocytes % 11.7 %; Neutrophils # 4.59 10^3/uL (1.8-7.7); Neutrophils % 61.1 %; Nucleated Red Blood Cells % 0 %; Platelet Count 201 10^3/cmm (130-400); Red Blood Count 2.88 10^6/uL (4.1-5.3); Red Cell Distribution Width 12.1 % (12.1-15.1); White Blood Count 7.5 10^3/uL (4.0-10.0)
[2021-03-25] MEDS: piperacillin-tazobactam 3.375 GM in sodium chloride 0.9% (plus) 50 ML IV ×3 (08:10→23:35)
[2021-03-25] MEDS: sertraline 100 mg Tablet PO (08:10)
[2021-03-25] MEDS: multivitamin therapeutic Tablet 1 TAB PO (08:10)
[2021-03-25] MEDS: lisinopril 10 mg Tablet PO (08:11)
[2021-03-25] MEDS: metoprolol tartrate 25 mg Tablet PO ×2 (08:11→20:29)
[2021-03-25] MEDS: thiamine 100 mg Tablet PO (08:12)
[2021-03-25] MEDS: famotidine 20 mg/2 mL INJ IVP ×2 (08:12→20:29)
[2021-03-25] MEDS: ferrous gluconate 324 mg Tablet PO ×2 (08:12→17:05)
[2021-03-25] MEDS: folic acid 1 mg Tablet PO (08:12)
--- NOTE | 2021-03-25 08:23 | P.PN_ITS ---
Subjective Subjective: Interval history: Seems to be more alert today. Limitation of sinus rhythm with no recurrence of SVT. Medications: Medication Review Details: Current Medications Acetaminophen (Acetaminophen 325 Mg Tablet) 650 mg PO Q6H PRN PRN Reason: MILD PAIN Famotidine (Famotidine 20 Mg/2 Ml Inj) 20 mg IVP Q12H JULIA Last Admin: 03/25/21 08:12 Dose: 20 mg Documented by: Ferrous Gluconate (Ferrous Gluconate 324 Mg Tablet) 324 mg PO BIDWM JULIA Last Admin: 03/25/21 08:12 Dose: 324 mg Documented by: Folic Acid (Folic Acid 1 Mg Tablet) 1 mg PO DAILY JULIA Last Admin: 03/25/21 08:12 Dose: 1 mg Documented by: Haloperidol Lactate (Haloperidol Inj 5 Mg/Ml Inj 1 Ml) 0.5 mg IVP Q6H PRN PRN Reason: AGITATION Last Admin: 03/23/21 23:34 Dose: 0.5 mg Documented by: Piperacillin Sod/Tazobactam (Sod 3.375 gm/ Sodium Chloride) 50 mls @ 12.5 mls/hr IV Q8H [facility]; Protocol Last Admin: 03/25/21 08:10 Dose: 12.5 mls/hr Documented by: dexmedeTOMIDine 0.9 % NaCL (Precedex) 400 mcg in 100 mls @ 0 mls/hr IV .Q0M JULIA; Protocol Last Admin: 03/25/21 05:01 Dose: 0.1 mcg/kg/hr, 1.7 mls/hr Documented by: Potassium Chloride/Dextrose/Sod Cl (Dextrose 5%-Ns + Kcl 20) 20 meq in 1,000 mls @ 50 mls/hr IV .Q20H JULIA Last Admin: 03/24/21 11:16 Dose: 50 mls/hr Documented by: Lanolin (Lanolin Oint 7 Gm) 1 applic TOPICAL PRN PRN PRN Reason: DRYNESS Last Admin: 03/23/21 10:41 Dose: 1 appful Documented by: Lisinopril (Lisinopril 10 Mg Tablet) 10 mg PO DAILY [facility] Last Admin: 03/25/21 08:11 Dose: 10 mg Documented by: Lorazepam (Lorazepam 2 Mg/Ml Inj 1 Ml) 2 mg IM Q4H PRN; Protocol PRN Reason: ALCOWD Lorazepam (Lorazepam 2 Mg/Ml Inj 1 Ml) 2 mg IVP PRN PRN; Protocol PRN Reason: WITHDRAWAL Last Admin: 03/24/21 00:43 Dose: 2 mg Documented by: Lorazepam (Lorazepam 2 Mg Tablet) 2 mg PO Q4H PRN; Protocol PRN Reason: WITHDRAWAL Metoprolol Tartrate (Metoprolol Tartrate 25 Mg Tablet) 25 mg PO BID@0900,2100 [facility] Last Admin: 03/25/21 08:11 Dose: 25 mg Documented by: Multivitamins Therapeutic (Multivitamin Therapeutic Tablet) 1 tab PO DAILY [facility] Last Admin: 03/25/21 08:10 Dose: 1 tab Documented by: Ondansetron HCl (Ondansetron 2 Mg/Ml Sdv 2 Ml) 4 mg IVP Q4H PRN PRN Reason: NAUSEA AND VOMITING Quetiapine Fumarate (Quetiapine 25 Mg Tablet) 25 mg PO BEDTIME [facility] Last Admin: 03/24/21 20:48 Dose: 25 mg Documented by: Quetiapine Fumarate (Quetiapine 100 Mg Tablet) 50 mg PO BEDTIME [facility] Last Admin: 03/24/21 20:48 Dose: 50 mg Documented by: Sertraline HCl (Sertraline 100 Mg Tablet) 100 mg PO DAILY [facility] Last Admin: 03/25/21 08:10 Dose: 100 mg Documented by: Thiamine Mononitrate (Thiamine 100 Mg Tablet) 100 mg PO DAILY [facility] Last Admin: 03/25/21 08:12 Dose: 100 mg Documented by: Trazodone HCl (Trazodone 50 Mg Tablet) 50 mg PO BEDTIME PRN PRN Reason: insomnia Last Admin: 03/24/21 23:11 Dose: 50 mg Documented by: Vitals/I&O/Wt Last Vital Signs Temp 98.4 F 03/25/21 04:00 Pulse 90 03/25/21 06:00 Resp 21 H 03/25/21 06:00 BP 159/97 03/25/21 06:00 Pulse Ox 94 03/25/21 02:00 03/24/21 03/25/21 03/25/21 22:59 06:59 14:59 Intake Total 744.647 / 1994.647 63.798 / 2058.445 Output Total 300 / 900 Balance 444.647 / 1094.647 63.798 / 1158.445 Physical Exam Narrative: EXAM NARRATIVE: GENERAL: The patient is alert and oriented times three. Not in any acute distress. HEENT: No significant pallor, icterus or lymphadenopathy. The pupils are symmetrical oral cavity: There are no mucous membrane lesions. NECK: Trachea appears to be central. No masses noted. No JVD or thyromegaly appr eciated. No carotid bruit. RESPIRATORY: Chest is symmetrical. No intercostals muscle retraction or any accessory muscle activation. There is no chest wall tenderness. Breath sounds are heard bilaterally. No rales or rhonchi heard. No evidence of any consolidation. BREASTS: Deferred. HEART: The PMI is in the 5th left intercostals space just inside the midclavicular line. No palpable precordial events. S1 and S2 are normal. No S3 or S4 heard. No pericardial rub or any click heard. ABDOMEN: The abdomen is bandaged. Good bowel sounds. : Deferred. RECTAL: Deferred. LYMPHATIC: No lymphadenopathy noted in the neck or groin. EXTREMITIES: No edema or cyanosis. No clubbing. MUSCULOSKELETAL: No acute joint deformities or swelling SKIN: There are no significant scars or skin rash noted. NEUROPSYCHIATRIC: No focal motor deficits Urinary Catheter Management^: Garcia: Cath Placed During This Visit: yes, but has since been removed by the nurse Reason for Continuing Indwelling Catheter: Accurate Measurement of Urinary Output in Critically Ill Patients Urinary Catheter Date of Insertion: 03/21/21 Urinary Catheter Time of Insertion: 20:00 Date Urinary Catheter Removed: 03/23/21 Time Urinary Catheter Discontinued: 06:03 Data : 03/25/21 07:36 03/25/21 07:36 Other Labs: Laboratory Last Values WBC 7.5 10^3/uL (4.0-10.0) 03/25/21 07:36 RBC 2.88 10^6/uL (4.1-5.3) L 03/25/21 07:36 Hgb 10.0 g/dL (11.5-15.3) L 03/25/21 07:36 Hct 30.4 % (37.0-47.0) L 03/25/21 07:36 MCV 105.6 fl (81-99) H 03/25/21 07:36 MCH 34.7 pg (28.0-34.0) H 03/25/21 07:36 MCHC 32.9 g/dL (30.0-36.0) 03/25/21 07:36 RDW 12.1 % (12.1-15.1) 03/25/21 07:36 Plt Count 201 10^3/cmm (130-400) 03/25/21 07:36 MPV 10.7 fL (7.4-10.4) H 03/25/21 07:36 Neut % (Auto) 61.1 % 03/25/21 07:36 Lymph % (Auto) 21.7 % 03/25/21 07:36 Real % (Auto) 11.7 % 03/25/21 07:36 Eos % (Auto) 4.7 % 03/25/21 07:36 Baso % (Auto) 0.4 % 03/25/21 07:36 Neut # (Auto) 4.59 10^3/uL (1.8-7.7) 03/25/21 07:36 Lymph # (Auto) 1.6 10^3/uL (0.8-4.8) 03/25/21 07:36 Real # (Auto) 0.9 10^3/uL (0.2-0.9) 03/25/21 07:36 Eos # (Auto) 0.4 10^3/uL (0.0-0.8) 03/25/21 07:36 Baso # (Auto) 0.0 10^3/uL (0.0-0.1) 03/25/21 07:36 Nucleated RBC % (auto) 0 % 03/25/21 07:36 Nucleated RBCs # 0.0 /100WBC 03/25/21 07:36 PT 12.90 SECONDS (12.1-14.9) 03/21/21 01:40 INR 0.94 (0.8-1.2) 03/21/21 01:40 Sodium 144 mmol/L (136-145) 03/24/21 04:20 Potassium 3.2 mmol/L (3.5-5.1) L 03/24/21 04:20 Chloride 109 mmol/L (98-107) H 03/24/21 04:20 Carbon Dioxide 19 mmol/L (22-29) L 03/24/21 04:20 Anion Gap 19.2 (5-19) H 03/24/21 04:20 BUN 8 mg/dL (8-23) 03/24/21 04:20 Creatinine 0.5 mg/dL (0.5-0.9) 03/24/21 04:20 GFR Calculation Not Reportable 03/24/21 04:20 Glucose 93 mg/dL (65-115) 03/24/21 04:20 POC Glucose 88 mg/dL (70-110) 03/23/21 17:37 Random Glucose Cancelled 03/20/21 23:42 Estimat Average Glucose 103 03/24/21 04:20 Hemoglobin A1c 5.2 % (4.0-6.0) 03/24/21 04:20 Calculated Osmolality 296 mOsm/kg (285-295) H 03/24/21 04:20 Lactic Acid 0.9 mmol/L (0.5-2.2) 03/21/21 01:15 Lactate 1.1 mmol/L (0.5-2.2) 03/20/21 22:37 Calcium 7.7 mg/dL (8.5-10.5) L 03/24/21 04:20 Magnesium 1.9 mg/dL (1.7-2.3) 03/22/21 04:34 Iron 20 ug/dL (37-145) L 03/23/21 06:02 TIBC 215 mcg/dl 03/23/21 06:02 % Saturation 9.3 % (20-50) L 03/23/21 06:02 Unsat Iron Binding 195 ug/dL (112-347) 03/23/21 06:02 Total Bilirubin 0.6 mg/dL (0.15-1.2) 03/24/21 04:20 Direct Bilirubin 0.20 mg/dL (0.00-0.30) 03/21/21 04:18 AST 12 U/L (0-32) 03/24/21 04:20 ALT 7 U/L (0-33) 03/24/21 04:20 Alkaline Phosphatase 39 IU/L (35-105) 03/24/21 04:20 Troponin T Baseline 14 ng/L (0-10) H 03/20/21 22:37 Troponin T 120 Minute 24.87 ng/L (0-10) H 03/21/21 01:15 Delta Troponin T 10.87 ABS# (0-10) H* 03/21/21 01:15 Troponin T Hi Sens 6Hr 31.31 ng/L (0-10) H 03/21/21 04:18 Troponin T Hi Sens 6Hr Delta 17.31 ng/L (0-12) H* 03/21/21 04:18 Total Protein 5.4 g/dL (6.6-8.7) L 03/24/21 04:20 Albumin 3.1 g/dL (3.5-5.2) L 03/24/21 04:20 Globulin 2.3 g/dL (1.3-4.6) 03/24/21 04:20 Triglycerides 106 mg/dL (0-150) 03/24/21 04:20 Cholesterol 161 mg/dL (0-200) 03/24/21 04:20 LDL Cholesterol, Calc 79 mg/dL (50-129) 03/24/21 04:20 Total VLDL Cholesterol 21 mg/dL (0-30) 03/24/21 04:20 HDL Cholesterol 61 mg/dL (60-100) 03/24/21 04:20 Cholesterol/HDL Ratio 2.64 mg/dL (0.0-4.40) 03/24/21 04:20 Lipase 33 U/L (13-60) 03/20/21 23:42 Vitamin B12 2000 pg/mL (232-1245) H 03/24/21 04:20 Folate 17.0 ng/mL (4.8-37.3) 03/24/21 04:20 TSH 4.61 uIU/mL (0.27-4.20) H 03/21/21 04:50 Free T4 1.31 ng/dL (0.82-1.77) 03/22/21 04:34 Urine Color Straw (Yellow) 03/20/21 10:45 Urine Appearance Clear (CLEAR) 03/20/21 10:45 Urine pH 7 (5-7) 03/20/21 10:45 Ur Specific Orange 1.010 (1.005-1.030) 03/20/21 10:45 Urine Protein Neg (Negative) 03/20/21 10:45 Urine Glucose (UA) Norm (Normal) 03/20/21 10:45 Urine Ketones 1+ (Negative) H 03/20/21 10:45 Urine Blood Neg (Negative) 03/20/21 10:45 Urine Nitrate Negative (Negative) 03/20/21 10:45 Urine Bilirubin Neg (Negative) 03/20/21 10:45 Urine Urobilinogen Norm mg/dL (Negative) 03/20/21 10:45 Ur Leukocyte Esterase Negative (Negative) 03/20/21 10:45 RPR Nonreactive (Nonreactive) 03/24/21 04:20 Blood Type A Positive 03/21/21 01:40 Rho(D) Type Positive 03/21/21 01:40 Antibody Screen Negative 03/21/21 01:40 A&P Assessment and plan (1) Troponin level elevated: It could be related to the SVT causing type II ID. Possibility of underlying coronary ischemia cannot be excluded. My clinical suspicion may be low. Since the patient has no chest pain or any EKG evidence of ischemia, I may hold off on any special treatment at this point. Consider doing a myocardial perfusion imaging, as an outpatient. Status: Acute (2) Elevated blood pressure reading: Currently the blood pressure is in the normal limits. May continue on the current medications. Status: Acute (3) SVT (supraventricular tachycardia): Patient seems to be tolerating the metoprolol so far well. Status: Acute (4) Status post partial colectomy: Good bowel sounds. Status: Acute Additional A&P Information Other problems are Hypokalemia-corrected. Anemia-stable Continue on the current measures Attestations Medical Necessity Statement*: Disposition as per the primary Coding Level of Care Code Acute Solution Mixer for Chg Fwd History Expanded Problem Focused Exam Detailed Medical Decision Making Low Complexity Diagnoses Troponin level elevated R77.8 Elevated blood pressure reading R03.0 SVT (supraventricular tachycardia) I47.1 Status post partial colectomy Z90.49
[2021-03-25 08:33] LABS: Alanine Aminotransferase 8 U/L (0-33); Albumin Level 3.3 g/dL (3.5-5.2); Alkaline Phosphatase 39 IU/L (35-105); Blood Urea Nitrogen 9 mg/dL (8-23); Calcium 7.9 mg/dL (8.5-10.5); Carbon Dioxide 20 mmol/L (22-29); Chloride 111 mmol/L (98-107); Globulin 1.9 g/dL (1.3-4.6); Glucose 111 mg/dL (65-115); Osmolality Calculated 299 mOsm/kg (285-295); Sodium 145 mmol/L (136-145); Total Bilirubin 0.4 mg/dL (0.15-1.2); Total Protein 5.2 g/dL (6.6-8.7)
[2021-03-25 08:34] LABS: Anion Gap 17.6 (5-19); Aspartate Amino Transferase 16 U/L (0-32); Potassium 3.6 mmol/L (3.5-5.1)
[2021-03-25] MEDS: dextrose 5%-ns + KCl 20 20 MEQ/1,000 ML BAG 50 MEQ IV (09:26)
--- NOTE | 2021-03-25 09:46 | PC.CHAP ---
Pastoral Care Encounter/Spiritual Assessment Type of Contact [] Declined oracle ascp consultant visit [] Patient/Family/Request visit [] Outpatient visit [] Follow-up visit [] Physician referral [] Code/Alert [x] Routine visit [] Staff referral [] Actively dying [x] Patient sleeping [] Family support [] [] Out of room [] Palliative care [] [] Receiving care in room [] Pre-surgical visit [] Trauma [] Long length of stay [x] ICU visit [] Other: Relational/Emotional Strength [] Patient feels connected with others/family/visitors/staff [] Distress [] Loneliness/isolation [] Abandonment Spirituality of Patient [] Person of Aide [] Attends Christianity of their Aide [] Believes in Prayer [] Reads Bible or Yazidi materials [] There are Spiritual issues to be addressed Logger All Round Interventions [x] Prayer [] Active listening [] Non-anxious presence [] Spiritual/emotional support [] Crisis/trauma care [] Spiritual counseling [] Bereavement support [] Provided bereavement packet [] Provided Bible/devotional materials [] Provided toy/stuffed animal, coloring book to patient or family member [] Provided Communion [] Anointing/[place] [] Salvation [x] Completed spiritual assessment [] Other: Impact on Illness or Injury [] Angry [] Fearful [] Anxious [] Often cries [] Exhaustion [] Unable to work [] Unable to attend yazidi [] Unable to walk/stand [] Unable to read [] Unable to drive [] Unable to eat/drink [] Unable to sleep [] Unable to be with family [] Patient intubated [] Other: Summary Time spent with patient
--- NOTE | 2021-03-25 15:04 | P.PN_ITS ---
Subjective Subjective: Interval history: Patient overall seems to be more alert and oriented today. No acute events overnight. Tolerating p.o. and having loose bowel movements. Medications: Reviewed: Yes Vitals/I&O/Wt Last Vital Signs Temp 97.6 F 03/25/21 12:00 Pulse 75 03/25/21 14:00 Resp 17 03/25/21 14:00 BP 140/91 03/25/21 14:00 Pulse Ox 94 03/25/21 02:00 03/25/21 03/25/21 03/25/21 06:59 14:59 22:59 Intake Total 63.798 / 2058.445 1297.565 / 1297.565 Output Total 150 / 150 Balance 63.798 / 5480.555 1660.565 / 1147.565 Physical Exam Narrative: EXAM NARRATIVE: Patient is conscious alert oriented, patient is less confused BMI 25 Head and neck examination PERRLA no masses no cervical lymphadenopathy no jaundice Abdomen nontender nondistended soft no organomegaly guarding or rigidity/no signs of peritonitis Incision is clean dry and intact and wound gaps are clean with packing in no surrounding cellulitis. Dressing change was done bedside by me the help of the nursing staff Urinary Catheter Management^: Garcia: Cath Placed During This Visit: yes, but has since been removed by the nurse Reason for Continuing Indwelling Catheter: Accurate Measurement of Urinary Ou tput in Critically Ill Patients Urinary Catheter Date of Insertion: 03/21/21 Urinary Catheter Time of Insertion: 20:00 Date Urinary Catheter Removed: 03/23/21 Time Urinary Catheter Discontinued: 06:03 Data : 03/25/21 07:36 03/25/21 07:36 A&P Assessment and plan (1) Status post partial colectomy: Assessment 80 years old female patient presented with cecal volvulus undergone exploratory laparotomy and a limited right hemicolectomy was done 03/21/2021. Patient sustained tachyarrhythmias that required ICU admission and cardiology and hospitalist service were consulted Plan From surgical standpoint of view diet can be advanced as tolerated with focus on protein shakes with each meal Encourage ambulation with assistance Patient can be discharged home once appropriate from hospitalist standpoint of view Wound care in the form of packing daily with wet-to-dry 1 inch Nu Gauze followed by ABDs Skin antoinette can come out 10 days after surgery From surgical standpoint of view can DC IV antibiotic Assurance and education All questions have been answered and all concerns have been addressed to patient's satisfaction. Status: Acute Attestations Medical Necessity Statement*: Per hospitalist service Time Spent in Patient Care: 16 - 35 minutes (>than 50% of time spent in counselling and/or direct pt care on unit) . Coding Level of Care Code Acute Graduate Teaching Associate for Amy Hubbard Diagnoses Status post partial colectomy Z90.49
--- NOTE | 2021-03-25 17:14 | P.PN_ITS ---
Subjective Subjective: Interval history: Seen multiple times during the day. No episodes of agitation overnight. Patient restarted on Precedex yesterday evening. Continued on 0.4 today. Weaned off early in the morning today. Patient more awake and alert today. Has been calm since today morning. Family at bedside. Worked with physical therapy today. Has been taking full liquid diet. No bowel movements today but passing flatus. Medications: Reviewed: Yes Vitals/I&O/Wt Last Vital Signs Temp 97.7 F 03/25/21 16:00 Pulse 70 03/25/21 16:00 Resp 19 H 03/25/21 16:00 BP 148/75 03/25/21 16:00 Pulse Ox 94 03/25/21 02:00 03/25/21 03/25/21 03/25/21 06:59 14:59 22:59 Intake Total 63.798 / 2058.445 1297.565 / 1297.565 Output Total 150 / 150 Balance 63.798 / 1994.508 7623.565 / 1147.565 Physical Exam Const: COMMON NORMALS: no acute distress GENERAL APPEARANCE: cooperative OTHER: Except, minimally confused. HENMT: COMMON NORMALS: oropharynx normal Neck/C-Spine: COMMON NORMALS: no JVD Resp: COMMON NORMALS: normal respiratory effort and clear to auscultation bilaterally AUSCULTATION: clear to auscultation bilaterally Cardio: COMMON NORMALS: no JVD, regular rhythm, S1 normal heart sound present, S2 normal heart sound present and No murmurs present (Cardio) RHYTHM: regular rhythm HEART SOUNDS: S1 normal heart sound present and S2 normal heart sound present GI: PALPATION: Yes Tenderness to palpation present (GI) OTHER: Abdominal wound covered by clean dressing.Wound closed. No drainage, erythema. Extremity: COMMON NORMALS: no joint enlargement and no pedal edema Neuro: COMMON NORMALS: moves all extremities Skin: COMMON NORMALS: no rashes or lesions noted GENERAL SKIN EXAM: no rashes or lesions noted Urinary Catheter Management^: Garcia: Cath Placed During This Visit: yes, but has since been removed by the nurse Reason for Continuing Indwelling Catheter: Accurate Measurement of Urinary Output in Critically Ill Patients Urinary Catheter Date of Insertion: 03/21/21 Urinary Catheter Time of Insertion: 20:00 Date Urinary Catheter Removed: 12/13/21 Time Urinary Catheter Discontinued: 06:03 Data : 03/25/21 07:36 03/25/21 07:36 A&P Assessment and plan (1) Acute encephalopathy: Acute metabolic encephalopathy with delirium: Most likely a combination of postoperative delirium along with alcohol withdrawal. Cannot rule out sundowning Confirm with patient's family. Patient is only on Cymbalta at home. Patient drinks at least 3 glasses of wine at home nightly. Discontinue morphine. Oral pain medication. WA protocol. For now continue to hold Precedex drip. If needed can restart Precedex drip before giving Haldol. Continue with Zoloft 100 mg daily, Seroquel 50 mg nightly with trazodone as n eeded. No signs of infection. White count trending down to normal. UA unremarkable. Patient has remained afebrile. Patient already on Zosyn for postoperative care. We will continue Zosyn to give 5-day course. CT head negative. 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 Bowel did not appear necrotic, but appeared dusky. Awaiting return of bowel function. Status: Acute (3) SVT (supraventricular tachycardia): Cardiology recommendations appreciated. May not require any additional specific intervention. Continue metoprolol 25 mg twice daily. Monitor on telemetry. Will give small dose potassium supplementation. Check magnesium and supplement if needed. Check TSH. TTE with EF 60%, no R WMA, mildly increased left atrial size, mild MVR, mild TVR, estimated pulmonary artery peak systolic pressure 24 mmHg, trace pericardial effusion. She reports drinking 3 glasses of wine nightly. Monitor for alcohol withdrawal. With troponin elevation, former smoker, history of TIA, would benefit from additional cardiac risk stratification. Status: Acute (4) Troponin level elevated: She is not having chest pain or pressure. Denies trouble breathing. Former smoker. History of TIA. Blood pressure is elevated on presentation, but unknown what baseline is. She states she normally very healthy. TTE with EF 60%, no R WMA, mildly increased left atrial size, mild MVR, mild TVR, estimated pulmonary artery peak systolic pressure 24 mmHg, trace pericardial effusion. Would benefit from cardiac risk stratification. Discussed with surgery, aspirin may add to risk of anastomotic complication. Appreciate cardiology thoughts with regards to etiology of troponin elevation. Status: Acute (5) Sinus bradycardia: Mildly abnormal TSH. Free T4 normal. Status: Acute (6) Status post partial colectomy: Status: Acute Additional A&P Information Anxiety Hx TIA Plan for today: Physical therapy. Transfer to [facility]. Continue with Zoloft, Seroquel. Precedex if needed. Safe discharge planning. Patient's care discussed in detail with her primary caregiver Mr. Ley. As per recommendation with Mr. Ley he is also currently hospitalized for a surgical procedure. He is okay with patient's daughter Ms. Capps making medical decisions. Ms. Capps present at bedside. Discussed the possible reason for patient delirium. All the questions were answered. We did discuss that unfortunately if it is because of postoperative delirium sometimes resolution can take up to couple of weeks. We also discussed we are trying to rule out any other organic reason. Discharge planning: Patient's primary caregiver Mr. Ley is also in the hospital for surgical procedure. Patient's family living in [place]. Asking if patient can fly to [place]. Discussed with Dr. Hopper and he thinks patient is not medically safe to be flying currently. Family agreeable for SNF placement. Case management alerted. Attestations Medical Necessity Statement*: Requires further hospitalization for postopera tive care, acute delirium likely secondary to postoperative status along with alcohol withdrawal while safe discharge planning is sought. Time Spent in Patient Care: Greater than 35 minutes (>than 50% of time spent in counselling and/or direct pt care on unit) . Coding Level of Care Code Acute Agitator Operator for Amy Hubbard Diagnoses Acute encephalopathy G93.40 Cecal volvulus K56.2 SVT (supraventricular tachycardia) I47.1 Troponin level elevated R77.8 Sinus bradycardia R00.1 Status post partial colectomy Z90.49
--- NOTE | 2021-03-25 17:41 | PC.NURSE ---
Shift Note Frequent safety and comfort rounds continue. Orders and/or nursing care completed as indicated. Patient monitored for response to intervention and treatment(s). Education provided includes treatment plan, medications and possible SNF placement. Pt daughters aware and were here today. They would like to fly mom to [place] to be closer to them. PT remains AAOx4, VSS. Will continue to monitor.
[2021-03-25] MEDS: acetaminophen 325 mg Tablet 650 MG PO (18:02)
[2021-03-25] MEDS: quetiapine 100 mg Tablet 50 MG PO (20:29)
[2021-03-25] MEDS: ketorolac 30 mg/mL INJ 15 MG IVP (21:17)
[2021-03-26] VITALS (25 sets, daily range): BP systolic 128–181; BP diastolic 67–116; PULSE 58–92; RESP 14–27; TEMP 36.7–36.8; O2SAT 95
[2021-03-26 04:24] LABS: Basophils % 0.4 %; Eosinophils # 0.4 10^3/uL (0.0-0.8); Eosinophils % 4.8 %; Hematocrit 28.6 % (37.0-47.0); Hemoglobin 9.3 g/dL (11.5-15.3); Lymphocytes % 23.7 %; Mean Corpuscular HGB Conc 32.5 g/dL (30.0-36.0); Mean Corpuscular Hemoglobin 33.7 pg (28.0-34.0); Mean Corpuscular Volume 103.6 fl (81-99); Mean Platelet Volume 10.6 fL (7.4-10.4); Monocytes # 1.1 10^3/uL (0.2-0.9); Monocytes % 13.1 %; Neutrophils # 4.91 10^3/uL (1.8-7.7); Neutrophils % 57.6 %; Nucleated Red Blood Cells % 0 %; Platelet Count 235 10^3/cmm (130-400); Red Blood Count 2.76 10^6/uL (4.1-5.3); Red Cell Distribution Width 12.2 % (12.1-15.1); White Blood Count 8.5 10^3/uL (4.0-10.0)
[2021-03-26 04:48] LABS: Alanine Aminotransferase 14 U/L (0-33); Alkaline Phosphatase 38 IU/L (35-105); Anion Gap 15.2 (5-19); Aspartate Amino Transferase 18 U/L (0-32); Blood Urea Nitrogen 7 mg/dL (8-23); Calcium 7.8 mg/dL (8.5-10.5); Carbon Dioxide 20 mmol/L (22-29); Chloride 115 mmol/L (98-107); Globulin 2.4 g/dL (1.3-4.6); Glucose 107 mg/dL (65-115); Osmolality Calculated 302 mOsm/kg (285-295); Potassium 3.2 mmol/L (3.5-5.1); Sodium 147 mmol/L (136-145); Total Bilirubin 0.4 mg/dL (0.15-1.2); Total Protein 5.4 g/dL (6.6-8.7)
--- NOTE | 2021-03-26 06:43 | PC.NURSE ---
Shift Note Frequent safety and comfort rounds continue. Pt was stable throughout the night. Orders and nursing care completed as indicated. Patient monitored for response to intervention and treatment. Education provided includes pain management. Patient verbalized understanding.
[2021-03-26] MEDS: dextrose 5%-ns + KCl 20 20 MEQ/1,000 ML BAG 50 MEQ IV (06:52)
--- NOTE | 2021-03-26 07:01 | PC.NURSE ---
Report received, assessment completed. VSS. AAOx4. Makes all needs known. Lung sounds CTA. Dressing to abd MD miquel aware of drainage and voiced no issue with it. Will monitor.
[2021-03-26] MEDS: thiamine 100 mg Tablet PO (08:13)
[2021-03-26] MEDS: multivitamin therapeutic Tablet 1 TAB PO (08:13)
[2021-03-26] MEDS: metoprolol tartrate 25 mg Tablet PO ×2 (08:13→20:16)
[2021-03-26] MEDS: famotidine 20 mg/2 mL INJ IVP ×2 (08:13→20:16)
[2021-03-26] MEDS: piperacillin-tazobactam 3.375 GM in sodium chloride 0.9% (plus) 50 ML IV (08:13)
[2021-03-26] MEDS: sertraline 100 mg Tablet PO (08:13)
[2021-03-26] MEDS: ferrous gluconate 324 mg Tablet PO ×2 (08:13→17:50)
[2021-03-26] MEDS: lisinopril 10 mg Tablet PO (08:13)
[2021-03-26] MEDS: folic acid 1 mg Tablet PO (08:13)
[2021-03-26] MEDS: acetaminophen 325 mg Tablet 650 MG PO ×2 (08:14→13:20)
[2021-03-26] MEDS: dextrose 5%-ns 0.45% + KCl 40 1,000 ML 75 MEQ IV ×2 (09:53→22:57)
--- NOTE | 2021-03-26 12:10 | P.PN_ITS ---
Subjective Subjective: Interval history: No acute events overnight. Patient has remained hemodynamically stable and afebrile. Has been off Precedex since yesterday morning. Today morning on examination with family at bedside patient is a lot more awake, alert, calm and composed. Able to have complete conversation by herself. Complaining of occasional abdominal pain. Has been having 3-4 watery bowel movements since today morning along with abdominal pain around the suture line. Passing flatus. Tolerating diet well. Medications: Reviewed: Yes Vitals/I&O/Wt Last Vital Signs Temp 98.2 F 03/26/21 08:00 Pulse 66 03/26/21 10:00 Resp 23 H 03/26/21 10:00 BP 161/93 03/26/21 10:00 Pulse Ox 95 03/26/21 04:00 03/25/21 03/26/21 03/26/21 22:59 06:59 14:59 Intake Total 930 / 2227.565 1050 / 3277.565 531.875 / 531.875 Output Total 300 / 300 Balance 930 / 2077.565 1050 / 3127.565 231.875 / 231.875 Physical Exam Const: COMMON NORMALS: no acute distress and patient oriented x3 GENERAL APPEARANCE: cooperative and frail appearing OTHER: Except, minimally confused. HENMT: COMMON NORMALS: oropharynx normal Neck/C-Spine: COMMON NORMALS: no JVD Resp: COMMON NORMALS: normal respiratory effort and clear to auscultation bilaterally AUSCULTATION: clear to auscultation bilaterally Cardio: COMMON NORMALS: no JVD, regular rhythm, S1 normal heart sound present, S2 normal heart sound present and No murmurs present (Cardio) RHYTHM: regular rhythm HEART SOUNDS: S1 normal heart sound present and S2 normal heart sound present GI: PALPATION: Yes Tenderness to palpation present (GI) OTHER: Abdominal wound covered by clean dressing.Wound closed. No drainage, erythema. Extremity: COMMON NORMALS: no joint enlargement and no pedal edema Neuro: COMMON NORMALS: patient oriented x3 and moves all extremities Skin: COMMON NORMALS: no rashes or lesions noted GENERAL SKIN EXAM: no rashes or lesions noted Urinary Catheter Management^: Garcia: Cath Placed During This Visit: yes, but has since been removed by the nurse Reason for Continuing Indwelling Catheter: Accurate Measurement of Urinary Output in Critically Ill Patients Urinary Catheter Date of Insertion: 03/21/21 Urinary Catheter Time of Insertion: 20:00 Date Urinary Catheter Removed: 03/23/21 Time Urinary Catheter Discontinued: 06:03 Data : 03/26/21 03:40 03/26/21 03:40 A&P Assessment and plan (1) Acute encephalopathy: Resolving. Acute metabolic encephalopathy with delirium: Most likely a combination of postoperative delirium along with alcohol withdrawal. Cannot rule out sundowning Confirm with patient's family. Patient is only on Cymbalta at home. Patient dr inks at least 3 glasses of wine at home nightly. Discontinue morphine. Oral pain medication. CIWA protocol. For now continue to hold Precedex drip. If needed can restart Precedex drip before giving Haldol. Continue with Zoloft 100 mg daily, Seroquel 50 mg nightly with trazodone as needed. No signs of infection. White count trending down to normal. UA unremarkable. Patient has remained afebrile. Patient already on Zosyn for postoperative care. We will continue Zosyn to give 5-day course. CT head negative. B12, folate, RPR all within normal limits Status: Acute (2) SVT (supraventricular tachycardia): Cardiology recommendations appreciated. May not require any additional specific intervention. Continue metoprolol 25 mg twice daily. Monitor on telemetry. Will give small dose potassium supplementation. Check magnesium and supplement if needed. Check TSH. TTE with EF 60%, no R WMA, mildly increased left atrial size, mild MVR, mild TVR, estimated pulmonary artery peak systolic pressure 24 mmHg, trace pericardial effusion. She reports drinking 3 glasses of wine nightly. Monitor for alcohol withdrawal. With troponin elevation, former smoker, history of TIA, would benefit from additional cardiac risk stratification. 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 Bowel did not appear necrotic, but appeared dusky. Awaiting return of bowel function. Status: Acute (4) Status post partial colectomy: Status: Acute (5) Troponin level elevated: She is not having chest pain or pressure. Denies trouble breathing. Former smoker. History of TIA. Blood pressure is elevated on presentation, but unknown what baseline is. She states she normally very healthy. TTE with EF 60%, no R WMA, mildly increased left atrial size, mild MVR, mild TVR, estimated pulmonary artery peak systolic pressure 24 mmHg, trace pericardial effusion. Would benefit from cardiac risk stratification. Discussed with surgery, aspirin may add to risk of anastomotic complication. Appreciate cardiology thoughts with regards to etiology of troponin elevation. Status: Acute (6) Diarrhea: Most likely postoperative. Hold off on bowel regimen. Check stool studies for C. difficile. If negative will confirm with surgery regarding starting Imodium. Status: Acute (7) Hypernatremia: Most likely from poor oral intake. Switch fluid to D5 half NS with 40 mg of potassium. Have encouraged patient to drink more. Repeat BMP at 6 PM. Status: Acute (8) Hypertension: Goal blood pressure less than 140/90 mmHg.. Blood pressure is elevated today. Lisinopril added by cardiology today. Continue with metoprolol. If blood pressures are elevated we will switch from lisinopril to losartan and add amlodipine. Hydralazine 10 mg as needed for systolic blood pressure of 160 mmHg and over. Status: Acute Additional A&P Information Anxiety Hx TIA Plan for today: Physical therapy. Transfer to [facility]. Add lisinopril and amlodipine for blood pressures. Switch fluid to D5 half NS with 40 mg of potassium. Encourage oral intake. Repeat BMP in evening. Safe discharge planning. Patient's care discussed in detail with her primary caregiver Mr. Ley. As per recommendation with Mr. Ley he is also currently hospitalized for a surgical procedure. He is okay with patient's daughter Ms. Capps making medical decisions. Ms. Capps present at bedside. Discussed the possible reason for patient delirium. All the questions were answered. We did discuss that unfortunately if it is because of postoperative delirium sometimes resolution can take up to couple of weeks. We also discussed we are trying to rule out any other organic reason. Discharge planning: Patient's primary caregiver Mr. Ley is also in the hospital for surgical procedure. Patient's family living in [place]. Asking if patient can fly to [place]. Discussed with Dr. Hopper and he thinks patient is not medically safe to be flying currently. Family agreeable for SNF placement. Case management alerted. Attestations Medical Necessity Statement*: Requires further hospitalization for management of postoperative care, postoperative delirium, hypernatremia while safe discharge planning discharge home. Coding Level of Care Code Acute Licensed Nurse Practitioner for Chg Fwd Diagnoses Acute encephalopathy G93.40 SVT (supraventricular tachycardia) I47.1 Cecal volvulus K56.2 Status post partial colectomy Z90.49 Troponin level elevated R77.8 Diarrhea R19.7 Hypernatremia E87.0 Hypertension I10
[2021-03-26] MEDS: amlodipine 10 mg Tablet PO (12:17)
--- NOTE | 2021-03-26 12:18 | PC.SOCIAL ---
IMM update IMM update with patient's daughters. Verbalized an understanding. Initialled, dated, timed, and placed in chart.
[2021-03-26] MEDS: hyDRALAzine 20 mg/mL INJ 1 mL 10 MG IVP (13:05)
--- NOTE | 2021-03-26 13:20 | PC.NUTR ---
Nutrition note: PO intakes approx 50% of full liquid meals, drinks Ensure at times. Pt requesting saltines and toast to go with her liquids. If medically appropriate/safe per MD discretion, recommend addition of saltines and/or plain toast with full liquid trays (but not full diet advancement at this time). See RD assessment for further details.
--- NOTE | 2021-03-26 13:59 | PC.NURSE ---
Pt c/o abd pain and bloating. Stomach appears bloated. Awaiting simethicone from pharmacy. Will monitor.
[2021-03-26] MEDS: simethicone 80 mg Chew PO (14:00)
--- NOTE | 2021-03-26 17:09 | PM.PN ---
Subjective Subjective: Interval history: Patient is feeling much better. She has occasional PACs on the telemetry. No chest pain or chest tightness. No shortness of breath. Blood pressure seems to be going up. She was given amlodipine 10 mg and also hydralazine p.o. Medications: Reviewed: Yes Medication Review Details: Current Medications Acetaminophen (Acetaminophen 325 Mg Tablet) 650 mg PO Q6H PRN PRN Reason: MILD PAIN Last Admin: 03/26/21 13:20 Dose: 650 mg Documented by: Hydrocodone Bitart/Acetaminophen (Hydrocodone-Acetaminophen 5-325 Mg Tablet) 1 tab PO Q8H PRN PRN Reason: MODERATE TO SEVERE PAIN Amlodipine Besylate (Amlodipine 10 Mg Tablet) 10 mg PO DAILY FORMERLY [facility], [facility] Last Admin: 03/26/21 12:17 Dose: 10 mg Documented by: Famotidine (Famotidine 20 Mg/2 Ml Inj) 20 mg IVP Q12H FOR[facility]LY [facility], [facility] Last Admin: 03/26/21 08:13 Dose: 20 mg Documented by: Ferrous Gluconate (Ferrous Gluconate 324 Mg Tablet) 324 mg PO BIDWM FOR[facility]LY [facility], [facility]1983 Last Admin: 03/26/21 08:13 Dose: 324 mg Documented by: Folic Acid (Folic Acid 1 Mg Tablet) 1 mg PO DAILY FOR[facility]LY [facility], [facility] Last Admin: 03/26/21 08:13 Dose: 1 mg Documented by: Haloperidol Lactate (Haloperidol Inj 5 Mg/Ml Inj 1 Ml) 0.5 mg IVP Q6H PRN PRN Reason: AGITATION Last Admin: 03/23/21 23:34 Dose: 0.5 mg Documented by: Hydralazine HCl (Hydralazine 20 Mg/Ml Inj 1 Ml) 10 mg IVP Q4H PRN PRN Reason: sys >160 Last Admin: 03/26/21 13:05 Dose: 10 mg Documented by: Hydralazine HCl (Hydralazine 20 Mg/Ml Inj 1 Ml) 10 mg IVP Q4H PRN PRN Reason: SBP more than 160 mmhg dexmedeTOMIDine 0.9 % NaCL (Precedex) 400 mcg in 100 mls @ 0 mls/hr IV .Q0M FOR[facility], [facility]; Protocol Last Titration: 03/25/21 09:28 Dose: 0 mcg/kg/hr, 0 mls/hr Documented by: Potassium Chloride/Dextrose/Sod Cl (Dextrose 5%-Ns 0.45% + Kcl 40) 1,000 mls @ 75 mls/hr IV .[id number] FOR[facility], [facility] Last Admin: 03/26/21 09:53 Dose: 75 mls/hr Documented by: Lanolin (Lanolin Oint 7 Gm) 1 applic TOPICAL PRN PRN PRN Reason: DRYNESS Last Admin: 03/23/21 10:41 Dose: 1 appful Documented by: Lorazepam (Lorazepam 2 Mg/Ml Inj 1 Ml) 2 mg IM Q4H PRN; Protocol PRN Reason: ALCOWD Lorazepam (Lorazepam 2 Mg Tablet) 2 mg PO Q4H PRN; Protocol PRN Reason: WITHDRAWAL Losartan Potassium (Losartan 50 Mg Tablet) 50 mg PO DAILY [facility], [facility]1983 Metoprolol Tartrate (Metoprolol Tartrate 25 Mg Tablet) 25 mg PO BID@0900,2100 FOR[facility], [facility] Last Admin: 03/26/21 08:13 Dose: 25 mg Documented by: Multivitamins Therapeutic (Multivitamin Therapeutic Tablet) 1 tab PO DAILY [facility] Last Admin: 03/26/21 08:13 Dose: 1 tab Documented by: Ondansetron HCl (Ondansetron 2 Mg/Ml Sdv 2 Ml) 4 mg IVP Q4H PRN PRN Reason: NAUSEA AND VOMITING Quetiapine Fumarate (Quetiapine 100 Mg Tablet) 50 mg PO BEDTIME FOR[facility]LY [facility] Last Admin: 03/25/21 20:29 Dose: 50 mg Documented by: Sertraline HCl (Sertraline 100 Mg Tablet) 100 mg PO DAILY [facility] Last Admin: 03/26/21 08:13 Dose: 100 mg Documented by: Simethicone (Simethicone 80 Mg Chew) 80 mg PO QID PRN PRN Reason: FLATULENCE Last Admin: 03/26/21 14:00 Dose: 80 mg Documented by: Thiamine Mononitrate (Thiamine 100 Mg Tablet) 100 mg PO DAILY [facility] Last Admin: 03/26/21 08:13 Dose: 100 mg Documented by: Trazodone HCl (Trazodone 50 Mg Tablet) 50 mg PO BEDTIME PRN PRN Reason: insomnia Last Admin: 03/24/21 23:11 Dose: 50 mg Documented by: Vitals/I&O/Wt Laboratory Last Values WBC 8.5 10^3/uL (4.0-10.0) 03/26/21 03:40 RBC 2.76 10^6/uL (4.1-5.3) L 03/26/21 03:40 Hgb 9.3 g/dL (11.5-15.3) L 03/26/21 03:40 Hct 28.6 % (37.0-47.0) L 03/26/21 03:40 MCV 103.6 fl (81-99) H 03/26/21 03:40 MCH 33.7 pg (28.0-34.0) 03/26/21 03:40 MCHC 32.5 g/dL (30.0-36.0) 03/26/21 03:40 RDW 12.2 % (12.1-15.1) 03/26/21 03:40 Plt Count 235 10^3/cmm (130-400) 03/26/21 03:40 MPV 10.6 fL (7.4-10.4) H 03/26/21 03:40 Neut % (Auto) 57.6 % 03/26/21 03:40 Lymph % (Auto) 23.7 % 03/26/21 03:40 Morrill % (Auto) 13.1 % 03/26/21 03:40 Eos % (Auto) 4.8 % 03/26/21 03:40 Baso % (Auto) 0.4 % 03/26/21 03:40 Neut # (Auto) 4.91 10^3/uL (1.8-7.7) 03/26/21 03:40 Lymph # (Auto) 2.0 10^3/uL (0.8-4.8) 03/26/21 03:40 Morrill # (Auto) 1.1 10^3/uL (0.2-0.9) H 03/26/21 03:40 Eos # (Auto) 0.4 10^3/uL (0.0-0.8) 03/26/21 03:40 Baso # (Auto) 0.0 10^3/uL (0.0-0.1) 03/26/21 03:40 Nucleated RBC % (auto) 0 % 03/26/21 03:40 Nucleated RBCs # 0.0 /100WBC 03/26/21 03:40 PT 12.90 SECONDS (12.1-14.9) 03/21/21 01:40 INR 0.94 (0.8-1.2) 03/21/21 01:40 Sodium 147 mmol/L (136-145) H 03/26/21 03:40 Potassium 3.2 mmol/L (3.5-5.1) L 03/26/21 03:40 Chloride 115 mmol/L (98-107) H 03/26/21 03:40 Carbon Dioxide 20 mmol/L (22-29) L 03/26/21 03:40 Anion Gap 15.2 (5-19) 03/26/21 03:40 BUN 7 mg/dL (8-23) L 03/26/21 03:40 Creatinine 0.6 mg/dL (0.5-0.9) 03/26/21 03:40 GFR Calculation Not Reportable 03/26/21 03:40 Glucose 107 mg/dL (65-115) 03/26/21 03:40 POC Glucose 88 mg/dL (70-110) 03/23/21 17:37 Random Glucose Cancelled 03/20/21 23:42 Estimat Average Glucose 103 03/24/21 04:20 Hemoglobin A1c 5.2 % (4.0-6.0) 03/24/21 04:20 Calculated Osmolality 302 mOsm/kg (285-295) H 03/26/21 03:40 Lactic Acid 0.9 mmol/L (0.5-2.2) 03/21/21 01:15 Lactate 1.1 mmol/L (0.5-2.2) 03/20/21 22:37 Calcium 7.8 mg/dL (8.5-10.5) L 03/26/21 03:40 Magnesium 1.9 mg/dL (1.7-2.3) 03/22/21 04:34 Iron 20 ug/dL (37-145) L 03/23/21 06:02 TIBC 215 mcg/dl 03/23/21 06:02 % Saturation 9.3 % (20-50) L 03/23/21 06:02 Unsat Iron Binding 195 ug/dL (112-347) 03/23/21 06:02 Total Bilirubin 0.4 mg/dL (0.15-1.2) 03/26/21 03:40 Direct Bilirubin 0.20 mg/dL (0.00-0.30) 03/21/21 04:18 AST 18 U/L (0-32) 03/26/21 03:40 ALT 14 U/L (0-33) 03/26/21 03:40 Alkaline Phosphatase 38 IU/L (35-105) 03/26/21 03:40 Troponin T Baseline 14 ng/L (0-10) H 03/20/21 22:37 Troponin T 120 Minute 24.87 ng/L (0-10) H 03/21/21 01:15 Delta Troponin T 10.87 ABS# (0-10) H* 03/21/21 01:15 Troponin T Hi Sens 6Hr 31.31 ng/L (0-10) H 03/21/21 04:18 Troponin T Hi Sens 6Hr Delta 17.31 ng/L (0-12) H* 03/21/21 04:18 Total Protein 5.4 g/dL (6.6-8.7) L 03/26/21 03:40 Albumin 3.0 g/dL (3.5-5.2) L 03/26/21 03:40 Globulin 2.4 g/dL (1.3-4.6) 03/26/21 03:40 Triglycerides 106 mg/dL (0-150) 03/24/21 04:20 Cholesterol 161 mg/dL (0-200) 03/24/21 04:20 LDL Cholesterol, Calc 79 mg/dL (50-129) 03/24/21 04:20 Total VLDL Cholesterol 21 mg/dL (0-30) 03/24/21 04:20 HDL Cholesterol 61 mg/dL (60-100) 03/24/21 04:20 Cholesterol/HDL Ratio 2.64 mg/dL (0.0-4.40) 03/24/21 04:20 Lipase 33 U/L (13-60) 03/20/21 23:42 Vitamin B12 2000 pg/mL (232-1245) H 03/24/21 04:20 Folate 17.0 ng/mL (4.8-37.3) 03/24/21 04:20 TSH 4.61 uIU/mL (0.27-4.20) H 03/21/21 04:50 Free T4 1.31 ng/dL (0.82-1.77) 03/22/21 04:34 Urine Color Straw (Yellow) 03/20/21 10:45 Urine Appearance Clear (CLEAR) 03/20/21 10:45 Urine pH 7 (5-7) 03/20/21 10:45 Ur Specific [place] 1.010 (1.005-1.030) 03/20/21 10:45 Urine Protein Neg (Negative) 03/20/21 10:45 Urine Glucose (UA) Norm (Normal) 03/20/21 10:45 Urine Ketones 1+ (Negative) H 03/20/21 10:45 Urine Blood Neg (Negative) 03/20/21 10:45 Urine Nitrate Negative (Negative) 03/20/21 10:45 Urine Bilirubin Neg (Negative) 03/20/21 10:45 Urine Urobilinogen Norm mg/dL (Negative) 03/20/21 10:45 Ur Leukocyte Esterase Negative (Negative) 03/20/21 10:45 RPR Nonreactive (Nonreactive) 03/24/21 04:20 Blood Type A Positive 03/21/21 01:40 Rho(D) Type Positive 03/21/21 01:40 Antibody Screen Negative 03/21/21 01:40 Last Vital Signs Temp 98.2 F 03/26/21 08:00 Pulse 69 03/26/21 14:00 Resp 17 03/26/21 14:00 BP 136/91 03/26/21 14:00 Pulse Ox 95 03/26/21 04:00 03/26/21 03/26/21 03/26/21 06:59 14:59 22:59 Intake Total 1050 / 3277.565 531.875 / 531.875 Output Total 300 / 300 650 / 950 Balance 1050 / 3127.565 231.875 / 231.875 -650 / -418.125 Physical Exam Narrative: EXAM NARRATIVE: GENERAL: The patient is alert and oriented times three. Not in any acute distress. HEENT: No significant pallor, icterus or lymphadenopathy. The pupils are symmetrical oral cavity: There are no mucous membrane lesions. NECK: Trachea appears to be central. No masses noted. No JVD or thyromegaly appreciated. No carotid bruit. RESPIRATORY: Chest is symmetrical. No intercostals muscle retraction or any accessory muscle activation. There is no chest wall tenderness. Breath sounds are heard bilaterally. No rales or rhonchi heard. No evidence of any consolidation. BREASTS: Deferred. HEART: The PMI is in the 5th left intercostals space just inside the midclavicular line. No palpable precordial events. S1 and S2 are normal. No S3 or S4 heard. No pericardial rub or any click heard. ABDOMEN: The abdomen is bandaged. Good bowel sounds. : Deferred. RECTAL: Deferred. LYMPHATIC: No lymphadenopathy noted in the neck or groin. EXTREMITIES: No edema or cyanosis. No clubbing. MUSCULOSKELETAL: No acute joint deformities or swelling SKIN: There are no significant scars or skin rash noted. NEUROPSYCHIATRIC: No focal motor deficits Urinary Catheter Management^: Garcia: Cath Placed During This Visit: yes, but has since been removed by the nurse Reason for Continuing Indwelling Catheter: Accurate Measurement of Urinary Output in Critically Ill Patients Urinary Catheter Date of Insertion: 03/21/21 Urinary Catheter Time of Insertion: 20:00 Date Urinary Catheter Removed: 03/23/21 Time Urinary Catheter Discontinued: 06:03 Data : 03/26/21 03:40 03/26/21 03:40 Micro: Microbiology 03/26/21 14:15 C.difficile Toxin B Gene (PCR) - Final Stool - Stool Aspirate 03/26/21 10:15 Stool Lactoferrin - Final Stool Enteric Pathogens (PCR) - Final 03/26/21 10:15 C.difficile Toxin B Gene (PCR) - Final Stool - Stool Aspirate A&P Assessment and plan (1) Troponin level elevated: It could be related to the SVT causing type II PA. Possibility of underlying coronary ischemia cannot be excluded. My clinical suspicion may be low. Since the patient has no chest pain or any EKG evidence of ischemia, I may hold off on any special treatment at this point. Consider doing a myocardial perfusion imaging, as an outpatient. Status: Acute (2) Elevated blood pressure reading: Need to optimize the antihypertensive medications. The dose of the losartan may be increased to 100 mg p.o. daily . Continue the other medications as it is Status: Acute (3) SVT (supraventricular tachycardia): Patient seems to be tolerating the metoprolol so far well. May continue on the current dose of the medication. Status: Acute (4) Status post partial colectomy: Good bowel sounds. Management as per surgery. Status: Acute Additional A&P Information Other problems are Hypokalemia-being corrected Anemia-stable Once the patient is discharged, please make an appointment to be seen at [facility] by the nurse practitioner in a week. We will decide on the stress test timing at that point. Appointment with me in the office in 1 month. Attestations Medical Necessity Statement*: Disposition as per the primary Coding Level of Care Code Acute Community Health Navigator for [place] Fwd History Expanded Problem Focused Exam Detailed Medical Decision Making Moderate Complexity Diagnoses Troponin level elevated R77.8 Elevated blood pressure reading R03.0 SVT (supraventricular tachycardia) I47.1 Status post partial colectomy Z90.49
--- NOTE | 2021-03-26 18:05 | XRR_ITS ---
PROCEDURE INFORMATION: Exam: XR Abdomen Exam date and time: 03/26/2021 6:05 PM Age: 80 years old Clinical indication: Other: Abd distention TECHNIQUE: Imaging protocol: XR of the abdomen. Views: Frontal supine view of the abdomen. 1 View. COMPARISON: CT abdomen pelvis w con* [id number] 03/21/2021 12:35 AM FINDINGS: Gastrointestinal tract: There is gas distended small bowel in the upper abdomen. Bones/joints: There is moderate convex right lower lumbar scoliosis and degenerative disease. XR/XR KUB portable [id number] IMPRESSION: Mildly dilated left upper quadrant small bowel. Possible obstruction or ileus.
--- NOTE | 2021-03-26 18:05 | XRR_ITS ---
PROCEDURE INFORMATION: Exam: XR Chest Exam date and time: 03/26/2021 6:05 PM Age: 80 years old Clinical indication: Other: Abd distention TECHNIQUE: Imaging protocol: XR of the chest. Views: 1 view. COMPARISON: CR Chest 1 [place] [id number] 06/05/2014 2:33 PM FINDINGS: Lungs: Lungs are clear. Pleural spaces: There is no pleural effusion or pneumothorax. Heart/Mediastinum: Cardiomediastinal contours are unremarkable. Bones/joints: Bones are unremarkable. XR/XR chest 1V portable [id number] IMPRESSION: No acute findings.
[2021-03-26 18:25] LABS: Blood Urea Nitrogen 6 mg/dL (8-23); Calcium 8.2 mg/dL (8.5-10.5); Carbon Dioxide 19 mmol/L (22-29); Chloride 111 mmol/L (98-107); Glucose 141 mg/dL (65-115); Osmolality Calculated 300 mOsm/kg (285-295); Sodium 145 mmol/L (136-145)
[2021-03-26 18:26] LABS: Anion Gap 18.6 (5-19); Potassium 3.6 mmol/L (3.5-5.1)
--- NOTE | 2021-03-26 18:35 | PC.NURSE ---
Pt resting in bed. Multiple BM's. KUB and CXR taken, MD at bedside. No issues. MD ordered to advance diet. VSS. BP high at times. Pt to be transferred to NE per nightshift. No other issues. Will monitor.
[2021-03-26] MEDS: quetiapine 100 mg Tablet 50 MG PO (20:16)
--- NOTE | 2021-03-26 22:05 | PC.NURSE ---
Daughter called approximately 1999, expressed concern about patient moving to med surg and dc home tomorrow due to that KUB showed possible bowl obstruction. Daughter notified that patient was stable and not reporting pain to this nurse, message was left with engineering consultant surgeon and as soon as this nurse hears anything family would be notified. daughter informed this nurse they are okay with patient going to med surg but need to be updated with any change and what the dr decides.
--- NOTE | 2021-03-26 23:04 | PC.NURSE ---
call worker person surgeon Dr. Riley burgos at [facility] and notified this nurse he does not believe there is an obstruction so it is okay to transfer patient if needed
[2021-03-27] VITALS (17 sets, daily range): BP systolic 129–178; BP diastolic 71–89; PULSE 71–95; RESP 15–29; TEMP 36.8
[2021-03-27 05:40] LABS: Alanine Aminotransferase 13 U/L (0-33); Albumin Level 3.3 g/dL (3.5-5.2); Alkaline Phosphatase 39 IU/L (35-105); Anion Gap 17.5 (5-19); Aspartate Amino Transferase 13 U/L (0-32); Blood Urea Nitrogen 4 mg/dL (8-23); Calcium 8.1 mg/dL (8.5-10.5); Carbon Dioxide 18 mmol/L (22-29); Chloride 111 mmol/L (98-107); Globulin 2.3 g/dL (1.3-4.6); Glucose 121 mg/dL (65-115); Osmolality Calculated 294 mOsm/kg (285-295); Potassium 3.5 mmol/L (3.5-5.1); Sodium 143 mmol/L (136-145); Total Bilirubin 0.3 mg/dL (0.15-1.2); Total Protein 5.6 g/dL (6.6-8.7)
--- NOTE | 2021-03-27 07:46 | PC.NURSE ---
Pt report received, assessment completed. AAOx4, VSS. Pt linens changed and pt cleaned with wipes d/t bowel incont. Pt able to transfer from bed without difficulty. Denies any pain to ABD, dressing soiled and to be changed this AM. ABD remains slightly distended. No other issues noted. will monitor.
[2021-03-27] MEDS: metoprolol tartrate 25 mg Tablet PO (08:19)
[2021-03-27] MEDS: folic acid 1 mg Tablet PO (08:19)
[2021-03-27] MEDS: amlodipine 10 mg Tablet PO (08:20)
[2021-03-27] MEDS: famotidine 20 mg/2 mL INJ IVP (08:20)
[2021-03-27] MEDS: multivitamin therapeutic Tablet 1 TAB PO (08:20)
[2021-03-27] MEDS: thiamine 100 mg Tablet PO (08:20)
[2021-03-27] MEDS: sertraline 100 mg Tablet PO (08:20)
[2021-03-27] MEDS: ferrous gluconate 324 mg Tablet PO (08:20)
[2021-03-27] MEDS: losartan 50 mg Tablet PO (08:20)
[2021-03-27] MEDS: hyDRALAzine 20 mg/mL INJ 1 mL 10 MG IVP (09:02)
--- NOTE | 2021-03-27 10:27 | XR_ITS ---
WS: [id number] XR KUB portable [id number] REASON FOR EXAM: post op FINDINGS: Midline surgical antoinette. There is gaseous distention of multiple small bowel loops with mild fold thickening. Similar dilatati on and distribution compared to previous examination of 03/26/2021 and 6:22 AM. There is some gas in the right colon and hepatic flexure. No free air or retroperitoneal air is identified. XR/XR KUB portable [id number] IMPRESSION: No acute abnormality is identified. The abdomen is similar in appearance to the previous examination of 03/26/2021 and 6:22 AM.
[2021-03-27] MEDS: ondansetron 2 mg/ML SDV 2 mL 4 MG IVP (10:44)
[2021-03-27] MEDS: acetaminophen 325 mg Tablet 650 MG PO (11:39)
[2021-03-27] MEDS: dextrose 5%-ns 0.45% + KCl 40 1,000 ML 75 MEQ IV (11:43)
--- NOTE | 2021-03-27 12:54 | P.DS_ITS ---
Discharge Providers Date of Admission: 03/21/21 08:15 Date of Discharge: March 27, 2021 Attending Provider at Admission: Tariq Hopper MD Attending Provider at Discharge: Delroy Kaur MD Consults: Internal medicine: Dr. Bobo/Dr. Kaur Cardiology: Dr. Sherwood Primary Care Provider: David Saleh MD Diagnoses at Discharge Discharge Diagnosis (1) Troponin level elevated: Status: Acute (2) Elevated blood pressure reading: Status: Acute (3) SVT (supraventricular tachycardia): Status: Acute (4) Status post partial colectomy: Status: Acute Reason for Visit Reason for Visit: N/V/D ABD PAIN Hospital Course Hospital Course Initially admitted under general surgery. History as per consult note. 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 Bowel did not appear necrotic, but appeared dusky. At presentation did have noted rise in troponins, 14-24.87-31.31. Pain was reported mostly abdominal, and troponin rise was thought related possibly to demand ischemia. During induction she was reported to have episodes of SVT for which he received beta-ellen, subsequently heart rates staying on the lower side mostly in the 60s. Because of concerns for SVT perioperatively patient was sent to ICU postoperatively. Patient did not have any further episodes of tachycardia. Patient's hospitalization was complicated by her developing postoperative delirium complicated by possible alcohol withdrawal which was treated with IV Precedex and changing of her oral psych medications. Gradually postoperatively she had recovery of her bowel functions and has been tolerating clear liquid diet. Given ongoing delirium patient was transitioned over to medical team while surgical team followed. Patient has been having few episodes of watery bowel movements for last 2 days for which stool studies were negative for any infective process. KUB was done which was discussed with general surgery and was cleared for discharge. Her diet was further advanced. Specialization was further complicated by her developing uncontrolled hypertension for which her antihypertensives were adjusted. Safe discharge planning was discussed with the patient and her family given the social discord as a primary caregiver/life partner was also admitted to a different hospital for surgical intervention and her daughters who have been bedside lives in [place] and were planning to fly back. Hence, for safe discharge planning discharge to SNF was discussed. Patient is been discharged in hemodynamically stable condition at baseline mentation to SNF with advised to follow-up with general surgery within next 1 week. Physical Exam Const: COMMON NORMALS: no acute distress and patient oriented x3 GENERAL APPEARANCE: cooperative and frail appearing HENMT: COMMON NORMALS: oropharynx normal Neck/C-Spine: COMMON NORMALS: no JVD Resp: COMMON NORMALS: normal respiratory effort and clear to auscultation bilaterally AUSCULTATION: clear to auscultation bilaterally Cardio: COMMON NORMALS: no JVD, regular rhythm, S1 normal heart sound present, S2 normal heart sound present and No murmurs present (Cardio) RHYTHM: regular rhythm HEART SOUNDS: S1 normal heart sound present and S2 normal heart sound present GI: PALPATION: Yes Tenderness to palpation present (GI) OTHER: Abdominal wound covered by clean dressing.Wound closed. No drainage, erythema. Extremity: COMMON NORMALS: no joint enlargement and no pedal edema Neuro: COMMON NORMALS: patient oriented x3 and moves all extremities Skin: COMMON NORMALS: no rashes or lesions noted GENERAL SKIN EXAM: no rashes or lesions noted Urinary Catheter Management^: Garcia: Cath Placed During This Visit: yes, but has since been removed by the nurse Reason for Continuing Indwelling Catheter: Accurate Measurement of Urinary Output in Critically Ill Patients Urinary Catheter Date of Insertion: 03/21/21 Urinary Catheter Time of Insertion: 20:00 Date Urinary Catheter Removed: 03/23/21 Time Urinary Catheter Discontinued: 06:03 Discharge Data Data Completed and Pending: Completed Studies During Hospitalization Category Date Time Status CT abdomen pelvis w con* [id number] Urge nt Cat Scan 03/20/21 22:[address] head wo con* 7 [id number] Routine Cat Scan 03/24/21 10:32 Completed XR KUB portable 7 [id number] Stat Exams 03/26/21 18:05 Completed XR KUB portable 7 [id number] Stat Exams 03/27/21 10:27 Completed XR chest 1V miguel angel ble [id number] Stat Exams 03/26/21 18:05 Completed Pathology: Surgic al [PTH] Routine Pth 03/21/21 06:33 Completed CV. echo complete * [id number] Routine Ultrasound 03/21/21 09:41 Completed Pending at discharge Category Date Time Status ES surgery / GI i mages Routine Exams 03/21/21 06:07 Taken COVID [SARS Covid -2 Antigen] Stat Lab 03/27/21 12:17 Ordered Labs from last 24 hours 03/27/21 03/27/21 03/26/21 12:17 04:26 18:02 Sodium 143 145 Potassium 3.5 3.6 Chloride 111 H 111 H Carbon Dioxide 18 L 19 L Anion Gap 17.5 18.6 BUN 4 L 6 L Creatinine 0.5 0.5 GFR Calculation Not Reportable Not Reportable Glucose 121 H 141 H Calculated Osmolal ity 294 300 H Calcium 8.1 L 8.2 L Total Bilirubin 0.3 AST 13 ALT 13 Alkaline Phosphata se 39 Total Protein 5.6 L Albumin 3.3 L Globulin 2.3 SARS-CoV-2 Ag (Rap id) Pending Addt'l Data from Hospital Stay: Laboratory Results WBC 8.5 10^3/uL (4.0- 10.0) 03/26/21 03:40 RBC 2.76 10^6/uL (4.1 -5.3) L 03/26/21 03:40 Hgb 9.3 g/dL (11.5-15 .3) L 03/26/21 03:40 Hct 28.6 % (37.0-47.0 ) L 03/26/21 03:40 MCV 103.6 fl (81-99) H 03/26/21 03:40 MCH 33.7 pg (28.0-34. 0) 03/26/21 03:40 MCHC 32.5 g/dL (30.0-3 6.0) 03/26/21 03:40 RDW 12.2 % (12.1-15.1 ) 03/26/21 03:40 Plt Count 235 10^3/cmm (130 -400) 03/26/21 03:40 MPV 10.6 fL (7.4-10.4 ) H 03/26/21 03:40 Neut % (Auto) 57.6 % 03/26/21 03:40 Lymph % (Auto) 23.7 % 03/26/21 03:40 [place] % (Auto) 13.1 % 03/26/21 03:40 Eos % (Auto) 4.8 % 03/26/21 03:40 Baso % (Auto) 0.4 % 03/26/21 03:40 Neut # (Auto) 4.91 10^3/uL (1.8 -7.7) 03/26/21 03:40 Lymph # (Auto) 2.0 10^3/uL (0.8- 4.8) 03/26/21 03:40 [place] # (Auto) 1.1 10^3/uL (0.2- 0.9) H 03/26/21 03:40 Eos # (Auto) 0.4 10^3/uL (0.0- 0.8) 03/26/21 03:40 Baso # (Auto) 0.0 10^3/uL (0.0- 0.1) 03/26/21 03:40 Nucleated RBC % (a uto) 0 % 03/26/21 03:40 Nucleated RBCs # 0.0 /100WBC 03/26/21 03:40 PT 12.90 SECONDS (12 .1-14.9) 03/21/21 01:40 INR 0.94 (0.8-1.2) 03/21/21 01:40 Sodium 143 mmol/L (136-1 45) 03/27/21 04:26 Potassium 3.5 mmol/L (3.5-5 .1) 03/27/21 04:26 Chloride 111 mmol/L (98-10 7) H 03/27/21 04:26 Carbon Dioxide 18 mmol/L (22-29) L 03/27/21 04:26 Anion Gap 17.5 (5-19) 03/27/21 04:26 BUN 4 mg/dL (8-23) L 03/27/21 04:26 Creatinine 0.5 mg/dL (0.5-0. 9) 03/27/21 04:26 GFR Calculation Not Reportable 03/27/21 04:26 Glucose 121 mg/dL (65-115 ) H 03/27/21 04:26 POC Glucose 88 mg/dL (70-110) 03/23/21 17:37 Random Glucose Cancelled 03/20/21 23:42 Estimat Average Gl ucose 103 03/24/21 04:20 Hemoglobin A1c 5.2 % (4.0-6.0) 03/24/21 04:20 Calculated Osmolal ity 294 mOsm/kg (285- 295) 03/27/21 04:26 Lactic Acid 0.9 mmol/L (0.5-2 .2) 03/21/21 01:15 Lactate 1.1 mmol/L (0.5-2 .2) 03/20/21 22:37 Calcium 8.1 mg/dL (8.5-10 .5) L 03/27/21 04:26 Magnesium 1.9 mg/dL (1.7-2. 3) 03/22/21 04:34 Iron 20 ug/dL (37-145) L 03/23/21 06:02 TIBC 215 mcg/dl 03/23/21 06:02 % Saturation 9.3 % (20-50) L 03/23/21 06:02 Unsat Iron Binding 195 ug/dL (112-34 7) 03/23/21 06:02 Total Bilirubin 0.3 mg/dL (0.15-1 .2) 03/27/21 04:26 Direct Bilirubin 0.20 mg/dL (0.00- 0.30) 03/21/21 04:18 AST 13 U/L (0-32) 03/27/21 04:26 ALT 13 U/L (0-33) 03/27/21 04:26 Alkaline Phosphata se 39 IU/L (35-105) 03/27/21 04:26 Troponin T Baselin e 14 ng/L (0-10) H 03/20/21 22:37 Troponin T 120 Min la posta 24.87 ng/L (0-10) H 03/21/21 01:15 Delta Troponin T 10.87 ABS# (0-10) H* 03/21/21 01:15 Troponin T Hi Sens 6Hr 31.31 ng/L (0-10) H 03/21/21 04:18 Troponin T Hi Sens 6Hr Delta 17.31 ng/L (0-12) H* 03/21/21 04:18 Total Protein 5.6 g/dL (6.6-8.7 ) L 03/27/21 04:26 Albumin 3.3 g/dL (3.5-5.2 ) L 03/27/21 04:26 Globulin 2.3 g/dL (1.3-4.6 ) 03/27/21 04:26 Triglycerides 106 mg/dL (0-150) 03/24/21 04:20 Cholesterol 161 mg/dL (0-200) 03/24/21 04:20 LDL Cholesterol, C alc 79 mg/dL (50-129) 03/24/21 04:20 Total VLDL Cholest herman 21 mg/dL (0-30) 03/24/21 04:20 HDL Cholesterol 61 mg/dL (60-100) 03/24/21 04:20 Cholesterol/HDL Ra michel 2.64 mg/dL (0.0-4 .40) 03/24/21 04:20 Lipase 33 U/L (13-60) 03/20/21 23:42 Vitamin B12 2000 pg/mL (232-1 245) H 03/24/21 04:20 Folate 17.0 ng/mL (4.8-3 7.3) 03/24/21 04:20 TSH 4.61 uIU/mL (0.27 -4.20) H 03/21/21 04:50 Free T4 1.31 ng/dL (0.82- 1.77) 03/22/21 04:34 Urine Color Straw (Yellow) 03/20/21 10:45 Urine Appearance Clear (CLEAR) 03/20/21 10:45 Urine pH 7 (5-7) 03/20/21 10:45 Ur Specific Gravit y 1.010 (1.005-1.0 30) 03/20/21 10:45 Urine Protein Neg (Negative) 03/20/21 10:45 Urine Glucose (UA) Norm (Normal) 03/20/21 10:45 Urine Ketones 1+ (Negative) H 03/20/21 10:45 Urine Blood Neg (Negative) 03/20/21 10:45 Urine Nitrate Negative (Negati ve) 03/20/21 10:45 Urine Bilirubin Neg (Negative) 03/20/21 10:45 Urine Urobilinogen Norm mg/dL (Negat lily) 03/20/21 10:45 Ur Leukocyte Jing ase Negative (Negati ve) 03/20/21 10:45 RPR Nonreactive (Non reactive) 03/24/21 04:20 Blood Type A Positive 03/21/21 01:40 Rho(D) Type Positive 03/21/21 01:40 Antibody Screen Negative 03/21/21 01:40 Impressions Abdomen/Pelvis CT 03/20/21 22:38 IMPRESSION: 1. Cecal volvulus with significant cecal distention. However no perforation or pneumatosis. 2. Other chronic and incidental findings as described COMMENTS: Consistent with the [employer]'s Incidental Findings Committee white paper (J Am Marc Radiol 2018): Any incidental renal lesion less than 1 cm or classified as too small to characterize, or any incidental cystic renal lesion characterized as simple-appearing, is likely benign. No follow-up imaging is recommended for these lesions per consensus recommendations based on imaging criteria. ADDENDUM: 03/21/21 0106 THIS REPORT CONTAINS FINDINGS THAT MAY BE CRITICAL TO PATIENT CARE. The findings were verbally communicated via telephone conference with Dr. Rodas at 1:04 AM SENIOR NETWORK SECURITY ENGINEER on 03/21/2021. The findings were acknowledged and understood. Head CT 03/24/21 10:32 IMPRESSION: Changes of the aging brain without acute intracranial abnormality noted. Chest X-Ray 03/26/21 18:05 IMPRESSION: No acute findings. KUB X-Ray 03/27/21 10:27 IMPRESSION: No acute abnormality is identified. The abdomen is similar in appearance to the previous examination of 03/26/2021 and 6:22 AM. Echocardiogram: CONCLUSIONS Normal left ventricular size and systolic function, EF 60% . Mild left ventricular hypertrophy. No regional wall motion abnormalities. Mildly increased left atrial size. Mild mitral valve regurgitation. Thickened aortic valve. Mild tricuspid valve regurgitation. Estimated pulmonary artery peak systolic pressure 24 mmHg Trace of pericardial effusion There are no intracardiac masses. No previous study is available for comparison. Dr Laisha Sherwood MD [facility] (Electronically Signed) Final Date: 21 March 2021 13:46 Vitals: Last Vital Signs Temp 98.2 F 03/27/21 09:00 Pulse 82 03/27/21 09:00 Resp 22 H 03/27/21 09:00 BP 178/89 03/27/21 09:00 Pulse Ox 95 03/26/21 20:00 Discharge Plan Discharge Patient Disposition: Xfer SNF Condition: Stable Prescriptions: New amlodipine 10 mg Tablet 10 mg PO DAILY 30 Days Qty: 30 RF: 0 folic acid 1 mg Tablet 1 mg PO DAILY Qty: 30 RF: 0 ferrous gluconate 324 mg (37.5 mg iron) Tablet 324 mg PO BIDWM 30 Days Qty: 30 RF: 0 losartan 50 mg Tablet 100 mg PO DAILY 30 Days Qty: 60 RF: 0 sertraline 100 mg Tablet 100 mg PO DAILY 30 Days Qty: 30 RF: 0 quetiapine 100 mg Tablet 50 mg PO BEDTIME 30 Days Qty: 30 RF: 0 Vitamin B-1 (mononitrate) 100 mg Tablet 100 mg PO DAILY 30 Days Qty: 30 RF: 0 carvedilol [Coreg] 6.25 mg tablet 6.25 mg PO Q12H 30 Days Qty: 60 RF: 0 Discontinued duloxetine 60 mg capsule,delayed release(DR/EC) 60 mg PO DAILY RF: 0 Discharge Orders: Discharge Order (Routine); Ordered 03/27/21 Ordered By: Delroy Kaur Referrals: Tariq Hopper MD [Physician] - 2 weeks (Return to surgery office in 2 weeks) Bro Gómez MD [Physician] - 4-7 days WILLMAHSA RILEY [Occupational Therapist] - Discharge Diet: Advance as tolerated, Usual diet and GI Soft Discharge Activity: Resume usual activity Patient Instructions: Opioid Safety Activity Restrictions/Additional Instructions: Follow-up with surgery and primary care provider as directed. Discharge Attestations Time Spent in Discharge Care*: greater than 30 min Specific Discharge Activities: educating patient, educating and/or supporting family/caregiver, discussing with pcp/other providers, discussing with patient case coordinator/social workers/dc planners, documenting/other paperwork and evaluating patient/reviewing data Status at Discharge: Cognitive status at discharge: mildly impaired cognition , Behavioral status at discharge: cooperative , Functional status at discharge: independent ambulation Overall status at discharge: patient is back to baseline Quality Metrics Clinical Quality Measures During this hospital stay, did patient experience: None Coding Level of Care Code Acute Chg FW DC note Diagnoses Troponin level elevated R77.8 Elevated blood pressure reading R03.0 SVT (supraventricular tachycardia) I47.1 Status post partial colectomy Z90.49
[2021-03-27 13:10] LABS: SARS Covid-2 Antigen Negative (Negative)
--- NOTE | 2021-03-27 14:36 | PM.PN ---
Subjective Subjective: Interval history: 80-year-old female who is postoperative day 6 from a right hemicolectomy for cecal volvulus. Patient reports that she has an improvement in her abdominal pain. Patient reports no nausea or emesis. She reports that she has continued loose bowel movements. She says that as soon as she gets up it just pours out. Patient denies any fevers or chills. I discussed with the patient's nurse, patient's nurse reports that the stools are more formed than before. Next A KUB is obtained today and yesterday which was read as small bowel obstruction. However by my interpretation the mildly distended loops of small bowel do not show transition point and there are no air-fluid levels. The patient will benefit from ambulation to assist in relief of gas from her intestines. She expressed understanding of this. Vitals/I&O/Wt Last Vital Signs Temp 98.3 F 03/27/21 12:00 Pulse 72 03/27/21 13:48 Resp 17 03/27/21 13:00 BP 129/71 03/27/21 13:00 Pulse Ox 95 03/26/21 20:00 03/26/21 03/27/21 03/27/21 22:59 06:59 14:59 Intake Total 1220 / 4236.962 0200.5 / 1557.5 Output Total 900 / 1200 900 / 900 Balance 320 / 551.875 657.5 / 657.5 Physical Exam Narrative: EXAM NARRATIVE: General: Pleasant appearing lady appearing her stated age Head: Normocephalic atraumatic Eyes: No scleral icterus, normal conjugate gaze Neuro: Moves her upper extremities bilaterally without issue. Skin: No jaundice Abdomen: No abdominal pain, mild tympany to percussion. Musculoskeletal: No obvious wasting of muscles. Chest: No accessory muscle use, equal and symmetric rise of the chest wall. Psych: Pleasant mood, cooperative. Urinary Catheter Management^: Garica: Cath Placed During This Visit: yes, but has since been removed by the nurse Reason for Continuing Indwelling Catheter: Accurate Measurement of Urinary Output in Critically Ill Patients Urinary Catheter Date of Insertion: 03/21/21 Urinary Catheter Time of Insertion: 20:00 Date Urinary Catheter Removed: 03/23/21 Time Urinary Catheter Discontinued: 06:03 Data : 03/26/21 03:40 03/27/21 04:26 Micro: Microbiology 03/26/21 10:15 Stool Lactoferrin - Final Stool Enteric Pathogens (PCR) - Final Parasite Antigen Panel - Final 03/26/21 14:15 C.difficile Toxin B Gene (PCR) - Final Stool - Stool Aspirate 03/26/21 10:15 C.difficile Toxin B Gene (PCR) - Final Stool - Stool Aspirate A&P Additional A&P Information 80-year-old female right hemicolectomy for cecal volvulus. Postoperative day 6. She is tolerating a diet has normal vital signs and an appropriate physical examination. Her loose bowel movements are beginning to solidify. Her KUB findings of distended small bowel of air but without air-fluid levels are consistent with a mild postoperative ileus which will resolve as soon as the patient continues to ambulate, which he may do so on a more frequent basis when she is discharged to her [place] facility. From surgery standpoint, patient meets discharge criteria. Follow-up in clinic with Dr. Hopper as scheduled. Attestations Medical Necessity Statement*: Hospital stay was required due to an inpatient urgent operation required and recovery from it notably the right hemicolectomy. Coding Level of Care Code Acute Industrial Engineering Professor for Amy Hubbard
--- NOTE | 2021-03-27 14:57 | PC.NURSE ---
Pt dressed, IV removed intact. Pullups in place. All belongings packed and sent with pt. Pt loaded into WC van. Daughter notified of transport.
--- NOTE | 2021-03-27 19:17 | P.PN_ITS ---
Subjective Subjective: Interval history: Stable no more SVT the patient is being discharged to detention Medications: Reviewed: Yes Medication Review Details: Current Medications Acetaminophen (Acetaminophen 325 Mg Tablet) 650 mg PO Q6H PRN PRN Reason: MILD PAIN Last Admin: 03/26/21 13:20 Dose: 650 mg Documented by: Hydrocodone Bitart/Acetaminophen (Hydrocodone-Acetaminophen 5-325 Mg Tablet) 1 tab PO Q8H PRN PRN Reason: MODERATE TO SEVERE PAIN Amlodipine Besylate (Amlodipine 10 Mg Tablet) 10 mg PO DAILY [facility] Last Admin: 03/26/21 12:17 Dose: 10 mg Documented by: Famotidine (Famotidine 20 Mg/2 Ml Inj) 20 mg IVP Q12H [facility] Last Admin: 03/26/21 08:13 Dose: 20 mg Documented by: Ferrous Gluconate (Ferrous Gluconate 324 Mg Tablet) 324 mg PO BIDWM [facility] Last Admin: 03/26/21 08:13 Dose: 324 mg Documented by: Folic Acid (Folic Acid 1 Mg Tablet) 1 mg PO DAILY [facility] Last Admin: 03/26/21 08:13 Dose: 1 mg Documented by: Haloperidol Lactate (Haloperidol Inj 5 Mg/Ml Inj 1 Ml) 0.5 mg IVP Q6H PRN PRN Reason: AGITATION Last Admin: 03/23/21 23:34 Dose: 0.5 mg Documented by: Hydralazine HCl (Hydralazine 20 Mg/Ml Inj 1 Ml) 10 mg IVP Q4H PRN PRN Reason: sys >160 Last Admin: 03/26/21 13:05 Dose: 10 mg Documented by: Hydralazine HCl (Hydralazine 20 Mg/Ml Inj 1 Ml) 10 mg IVP Q4H PRN PRN Reason: SBP more than 160 mmhg dexmedeTOMIDine 0.9 % NaCL (Precedex) 400 mcg in 100 mls @ 0 mls/hr IV .Q0M [facility]; Protocol Last Titration: 03/25/21 09:28 Dose: 0 mcg/kg/hr, 0 mls/hr Documented by: Potassium Chloride/Dextrose/Sod Cl (Dextrose 5%-Ns 0.45% + Kcl 40) 1,000 mls @ 75 mls/hr IV .[id number] [facility] Last Admin: 03/26/21 09:53 Dose: 75 mls/hr Documented by: Lanolin (Lanolin Oint 7 Gm) 1 applic TOPICAL PRN PRN PRN Reason: DRYNESS Last Admin: 03/23/21 10:41 Dose: 1 appful Documented by: Lorazepam (Lorazepam 2 Mg/Ml Inj 1 Ml) 2 mg IM Q4H PRN; Protocol PRN Reason: ALCOWD Lorazepam (Lorazepam 2 Mg Tablet) 2 mg PO Q4H PRN; Protocol PRN Reason: WITHDRAWAL Losartan Potassium (Losartan 50 Mg Tablet) 50 mg PO DAILY [facility] Metoprolol Tartrate (Metoprolol Tartrate 25 Mg Tablet) 25 mg PO BID@0900,2100 [facility] Last Admin: 03/26/21 08:13 Dose: 25 mg Documented by: Multivitamins Therapeutic (Multivitamin Therapeutic Tablet) 1 tab PO DAILY [facility] Last Admin: 03/26/21 08:13 Dose: 1 tab Documented by: Ondansetron HCl (Ondansetron 2 Mg/Ml Sdv 2 Ml) 4 mg IVP Q4H PRN PRN Reason: NAUSEA AND VOMITING Quetiapine Fumarate (Quetiapine 100 Mg Tablet) 50 mg PO BEDTIME [facility] Last Admin: 03/25/21 20:29 Dose: 50 mg Documented by: Sertraline HCl (Sertraline 100 Mg Tablet) 100 mg PO DAILY [facility] Last Admin: 03/26/21 08:13 Dose: 100 mg Documented by: Simethicone (Simethicone 80 Mg Chew) 80 mg PO QID PRN PRN Reason: FLATULENCE Last Admin: 03/26/21 14:00 Dose: 80 mg Documented by: Thiamine Mononitrate (Thiamine 100 Mg Tablet) 100 mg PO DAILY [facility] Last Admin: 03/26/21 08:13 Dose: 100 mg Documented by: Trazodone HCl (Trazodone 50 Mg Tablet) 50 mg PO BEDTIME PRN PRN Reason: insomnia Last Admin: 03/24/21 23:11 Dose: 50 mg Documented by: Vitals/I&O/Wt Last Vital Signs Temp 98.3 F 03/27/21 12:00 Pulse 72 03/27/21 13:48 Resp 17 03/27/21 13:00 BP 129/71 03/27/21 13:00 Pulse Ox 95 03/26/21 20:00 03/27/21 03/27/21 03/27/21 06:59 14:59 22:59 Intake Total 1557.5 / 1557.5 Output Total 900 / 900 Balance 657.5 / 657.5 Physical Exam Narrative: EXAM NARRATIVE: GENERAL: Patient is alert, awake and oriented x3. NECK: No jugular vein distension. HEENT: No cyanosis. No icterus. No pallor. HEART: Regular S1 and S2. No murmur, rub or gallop. LUNGS: Clear to auscultate bilaterally. ABDOMEN: Soft, nontender and nondistended. Positive bowel sounds. No guarding, rebound or tenderness. CENTRAL NERVOUS SYSTEM: Grossly nonfocal. EXTREMITIES: Lower extremities without edema bilaterally. Urinary Catheter Management^: Garcia: Cath Placed During This Visit: yes, but has since been removed by the nurse Reason for Continuing Indwelling Catheter: Accurate Measurement of Urinary Output in Critically Ill Patients Urinary Catheter Date of Insertion: 03/21/21 Urinary Catheter Time of Insertion: 20:00 Date Urinary Catheter Removed: 03/23/21 Time Urinary Catheter Discontinued: 06:03 Data : 03/26/21 03:40 03/27/21 04:26 Micro: Microbiology 03/26/21 10:15 Stool Lactoferrin - Final Stool Enteric Pathogens (PCR) - Final Parasite Antigen Panel - Final 03/26/21 14:15 C.difficile Toxin B Gene (PCR) - Final Stool - Stool Aspirate 03/26/21 10:15 C.difficile Toxin B Gene (PCR) - Final Stool - Stool Aspirate A&P Assessment and plan (1) Troponin level elevated: Most likely type II, continue to treat SVT Status: Acute (2) Elevated blood pressure reading: Well-controlled now. Status: Acute (3) SVT (supraventricular tachycardia): Continue metoprolol well-controlled, patient can be discharged appear to be stable from a cardiac perspective Status: Acute (4) Status post partial colectomy: As per surgery Status: Acute Additional A&P Information Other problems are Hypokalemia-being corrected Anemia-stable Once the patient is discharged, please make an appointment to be seen at [facility] by the nurse practitioner in a week. We will decide on the stress test timing at that point. Appointment with me in the office in 1 month. Attestations Medical Necessity Statement*: Patient require continuation hospitalization for above defined care. Coding Level of Care Code Established Pt Acute Drop Man for Chg Fwd Patient Type Established History Detailed Exam Detailed Medical Decision Making Moderate Complexity Diagnoses Troponin level elevated R77.8 Elevated blood pressure reading R03.0 SVT (supraventricular tachycardia) I47.1 Status post partial colectomy Z90.49
== END 2021-03-27 14:54 | disposition skilled nursing facility (03) | DRG 329 ==
LOC: ER 03-21 01:29 → OR 03-21 01:37 → ICU 03-21 08:21
PROVIDERS: Emergency Medicine; Internal Medicine; Surgery; Admitting Provider Student in an Organized Health Care Education/Training Program; Emergency Provider Emergency Medicine; PCP Family Medicine; Visit Provider Student in an Organized Health Care Education/Training Program
PROC: 0DTF0ZZ Resection of Right Large Intestine, Open Approach (ICD-10-PCS; CPT 49000; principal; 2021-03-21 05:00)
DX: K56.2 Volvulus (principal); G93.41 Metabolic encephalopathy; I47.1 Supraventricular tachycardia; F05 Delirium due to known physiological condition; F10.139 Alcohol abuse with withdrawal, unspecified; I24.8 Other forms of acute ischemic heart disease; F41.1 Generalized anxiety disorder; I73.9 Peripheral vascular disease, unspecified; M54.30 Sciatica, unspecified side; Z86.73 Personal history of transient ischemic attack (TIA), and cerebral infarction without residual deficits; I10 Essential (primary) hypertension; T40.2X5A Adverse effect of other opioids, initial encounter; E87.6 Hypokalemia; D64.9 Anemia, unspecified
CPT/HCPCS: 12345; 36415; 36416; 51702; 70450; 71045; 74018; 74177; 80048; 80053; 80061; 80076; 81003; 82607; 82746; 82962; 83036; 83540; 83550; 83605; 83630; 83690; 83735; 84439; 84443; 84484; 85025; 85610; 86592; 86850; 86900; 87426; 87493; 87506; 88304; 88309; 93005; 93306; 96361; 96365; 96372; 96375; 97110; 97116; 97161; 97165; 99285; C9290; J0360; J0690; J1100; J1630; J1644; J1885; J2060; J2270; J2405; J2543; J2704; J2710; J3010; J3411; J3475; J3480; J3490; J7030; J7040; P9041; Q9967

== ENCOUNTER → 2023-11-07 09:02 | Outpatient (BNVA) | payer MEDICARE, SELFPAY | PROVIDERS: PCP Family Medicine; Visit Provider Family Medicine | DX: E78.00 Pure hypercholesterolemia, unspecified (principal); R06.00 Dyspnea, unspecified | CPT/HCPCS: 80053; 80061; 84439; 84443; 85025 ==

== ENCOUNTER 2023-12-01 14:03 | Outpatient (CLI) | payer MEDICARE, SELFPAY ==
--- NOTE | 2023-12-01 14:30 | USCV_ITS ---
Morena Pedraza Age: 83 Gender: F : 1940 Exam Date: 12/01/2023 14:13 Ordering Phys: Maxx Palumbo MD Technologist: Gregory Rodríguez Exam Location: [facility] [place] Indication: dyspnea BP: 125 / 70 HR: 70 Rhythm: Sinus Technical Quality: Adequate MEASUREMENTS (Male / Female) Normal Values 2D ECHO LV Diastolic Diameter PLAX 4.1 cm 4.2 - 5.9 / 3.9 - 5.3 cm IVS Diastolic Thickness 1.0 cm 0.6 - 1.0 / 0.6 - 0.9 cm IVS Systolic Thickness 1.7 cm LVPW Diastolic Thickness 1.1 cm 0.6 - 1.0 / 0.6 - 0.9 cm LVPW Systolic Thickness 1.5 cm LVOT Diameter 2.0 cm LV Ejection Fraction 2D Teich 64.9 % LV Ejection Fraction MOD 4C 56.8 % LV Ejection Fraction MOD 2C 64.1 % LV Ejection Fraction 2C AL 65.2 % LA Diameter 3.7 cm RA Systolic Volume 4C AL 27.8 ml RA Systolic Volume 4C MOD 27.0 ml Aorta at Sinotubular Diameter 3.1 cm IVC Diameter 2.5 cm M-MODE LA Ao Ratio MM 1.2 AV Cusp Separation MM 2.4 cm DOPPLER AV Peak Velocity 129.3 cm/s LVOT Peak Velocity 93.0 cm/s AV Area Cont Eq vti 3.3 cm squared AV Area Cont Eq pk 2.2 cm squared MV Peak Velocity 98.0 cm/s MV Area PHT 3.3 cm squared Mitral E to A Ratio 0.9 TR Peak Velocity 176.0 cm/s TR Peak Gradient 12.4 mmHg TV Peak E Velocity 100.0 cm/s Right Atrial Pressure 3.0 mmHg Pulmonary Artery Systolic Pressu 15.4 mmHg PV Peak Velocity 104.0 cm/s FINDINGS Left Ventricle Left ventricle is normal. LV systolic function is normal with EF of 55-60%. No regional wall motion abnormalities. Grade 1 diastolic dysfunction Right Ventricle Normal in size and function Right Atrium Normal in size Left Atrium Normal in size Mitral Valve Structurally normal mitral valve. Mild mitral regurgitation. Aortic Valve Structurally normal aortic valve. No significant stenosis or regurgitation. Tricuspid Valve Mild tricuspid regurgitation. Pulmonic Valve Not well-visualized Pericardium Normal Aorta Normal in size IVC Not well visualized CONCLUSIONS LV systolic function is normal with EF of 55-60% Grade 1 diastolic dysfunction Mild mitral regurgitation Mild tricuspid regurgitation Jai Manzanares MD (Electronically Signed) Final Date: 03 December 2023 18:28 S
== END 2023-12-01 14:04 | disposition home or self-care (01) ==
LOC: RAD 14:03
PROVIDERS: PCP Family Medicine; Visit Provider Family Medicine
DX: I50.30 Unspecified diastolic (congestive) heart failure (principal); R06.00 Dyspnea, unspecified
CPT/HCPCS: 80053; 80061; 84439; 84443; 85025; 93306

== ENCOUNTER 2024-11-05 14:08 | Emergency (ER) | payer MEDICARE, SELFPAY ==
--- NOTE | 2024-11-05 14:11 | XRR_ITS ---
PROCEDURE INFORMATION: Exam: XR Chest Exam date and time: 11/05/2024 2:47 PM Age: 83 years old Clinical indication: Other: AMS TECHNIQUE: Imaging protocol: Radiologic exam of the chest. Views: 1 view. COMPARISON: CR XR chest 1V portable [id number] 03/26/2021 6:19 PM FINDINGS: Lungs: Unremarkable. No consolidation. Pleural spaces: Unremarkable. No pleural effusion. No pneumothorax. Heart/Mediastinum: Unremarkable. No cardiomegaly. Bones/joints: Unremarkable. XR/XR chest 1V portable [id number] IMPRESSION: No acute findings. There is ill-defined bibasilar density, consistent with atelectasis or early bibasilar pneumonia.The colon is normal. SmallThere is no evidence of intestinal perforation or obstruction. Right
[2024-11-05 14:12] VITALS: BP 200/96; PULSE 107; RESP 16; TEMP 36.3; O2SAT 100
--- OUTSIDE RECORDS SUMMARY | 2024-11-05 14:16 | XMS_ITS ---
Author Organization [facility] Care Team Providers Care Director Medicaid Name Role Phone Nichole Mercedes Unavailable Unavailable Allergies and adverse reactions Code CodeSystem Substance Reaction Severity StartDate Concern Status 7052 RXNORM morphine Unknown 03/27/2021 active Care Team Name Role Address Phone Organization Dates Nichole Mercedes [facility] [address] [place], [address], [place] (Office): : [facility] 03/27/2021 - 04/06/2021 Mental Status Section Date Assessment Total Score Description 04/06/2021 CAM 0 No delirium ind icated 04/03/2021 BIMS 15 cognitively int act CAM 0 No delirium ind icated PHQ-9 04 minimal depress ion Reason for Referral No Reasons for Referral Entered Social History Social History Observation Description Start Date End Date Code Code System Current Smoking Status Tobacco smoking consumption unknown 649380546 SNOMED CT Sex Assigned At Female 1940 [address]-1 [facility] Gender Identity Vital Signs Code Code System Vitals Name Values and Units Timing Information 9279-1 LOINC Respiratory Rate Value=18.0 Units=/m in 04/06/2021 8462-4 LOINC Blood Pressure-Diastolic Value=62 Un its=mmHg 04/06/2021 8480-6 LOINC Blood Pressure-Systolic Imxvu=841 Un its=mmHg 04/06/2021 8310-5 LOINC Body Temperature Value=97.0 Units= F 04/06/2021 8867-4 [facility] Heart rate Value=64.0 Units=/min 71371-7 [facility] O2 % BldC Oximetry Value=98.0 Units= % 04/06/2021 72368-2 [facility] Weight Vweev=675.0 Units=Lbs 8302-2 [facility] Height Value=67.0 Units=Inches 03/27/2021
--- OUTSIDE RECORDS SUMMARY | 2024-11-05 14:16 | XMS_ITS | Clinical Summary ---
Author Organization [facility] Address [address] [place] [address] Phone Care Team Providers Care Customer Consulting Manager Name Role Phone Unavailable Primary Care Provider Unavailabl e Social History Tobacco Use Types Packs/Day Years Used Date Smoking Tobacco: Never Assessed Comments Unknown Sex and Gender Information Value Date Recorded Sex Assigned at Not on file Legal Sex Female 8:59 AM EXPL[employer]IVES [employer] Gender Identity Not on file Sexual Orientation Not on file Plan of Treatment Health Maintenance Due Date Last Done Comments DTAP/TDAP/TD VACCINES (1 - Tdap) 1957 PNEUMOCOCCAL VACCINE 50+ YEARS (1 of 1 - PCV) 11/21/18 89 ZOSTER VACCINE (1 of 2) 1988 OSTEOPOROSIS SCREENING 11/22/2003 RSV VACCINE (60+ or ) (1 - 1-dose 75+ series) 2013 INFLUENZA VACCINE (#1) 2024
--- NOTE | 2024-11-05 14:21 | ECG_ITS ---
[facility]: 2024-11-05 Pat Name: Morena Pedraza Department: Room: Gender: Female Utilization Specialist: : 1940 Requested By: Larry Hawley Order Number: [id number] Ricardo MD: Jai Manzanares M.D. Measurements Intervals [place] Rate: 68 P: 73 VT: 154 QRS: 10 QRSD: 81 T: 58 QT: 393 QTc: 418 Interpretive Statements SINUS RHYTHM WITH OCCASIONAL SUPRAVENTRICULAR PREMATURE COMPLEXES LOW QRS VOLTAGE IN PRECORDIAL LEADS [QRS DEFLECTION < 1.0 mV IN CHEST LEADS] Compared to ECG 03/22/2021 15:57:29 Low QRS voltage now present Electronically Signed On 11-08-2024 10:27:59 CDT by Jai Manzanares M.D. [email or web address] [id number]
[2024-11-05 14:53] VITALS: BP 150/101; PULSE 101; O2SAT 100
--- NOTE | 2024-11-05 14:53 | W.ED.GENADLT ---
HPI - General Adult General: Chief complaint: General Medical Stated complaint: toni campos,n,v,d Time Seen by Provider: 11/05/24 14:38 History of Present Illness: 83-year-old female presents emergency room complaining of weakness. She states she is intermittently having fits of what she calls dizziness and confusion for some time she thinks she may have had a stroke at some time. She said 3 weeks ago she got lightheaded dizzy blacked out for that she cannot recall if it happened just after she stood up. She did not get seen after this happened. She intermittently has chest pain. She denies any fever sweats chills no dysuria urgency or frequency. She is complaining mostly of back pain now. She states ever since the episode where she passed out she is having more difficulty with her memory and persistent dizziness. Associated symptoms: Deny chest pain, dyspnea or rash Related Data Home Medications ?Medication ?Instructions ?Recorded ?Confirmed biotin 10,000 mcg capsule mcg PO 03/30/24 11/05/24 cholecalciferol (vitamin D3) 50 50 mcg PO DAILY 03/30/24 11/05/24 mcg (2,000 unit) capsule multivitamin 1 tab PO DAILY 03/30/24 11/05/24 Previous Rx's ?Medication ?Instructions ?Recorded aspirin 81 mg tablet,delayed 81 mg PO DAILY #30 tabs 10/06/23 release simethicone 125 mg capsule (Gas 125 mg PO DAILY PRN abdominal 10/06/23 Relief (simethicone)) distention #30 caps triamcinolone acetonide 0.1 % 1 applic topical BID #15 grams 01/23/24 topical cream duloxetine 60 mg capsule,delayed 60 mg PO DAILY #90 caps 03/30/24 release hydroxyzine HCl 25 mg tablet 25 mg PO BID PRN itching #30 tabs 04/05/24 prednisone 20 mg tablet 40 mg (2 x 20 mg) PO DAILY 5 days 04/05/24 #10 tabs sulfamethoxazole 800 1 tab PO BID #14 tabs 04/05/24 mg-trimethoprim 160 mg tablet (Bactrim DS) Allergies Allergy/AdvReac Type Severity Reaction Status Date / Time morphine AdvReac Intermediate ADR-Confusi Verified 11/05/24 13:41 on Review of Systems Const: Denies: fever(s) or chills Card: Denies: chest pain Resp: Denies: dyspnea GI: Denies: abdominal pain : Denies: dysuria, urinary frequency or urinary urgency Musc: Denies: neck pain or back pain Skin/Breast: Denies: rash PFSH ED PFSH: Medical History Memory deficit Alcohol use disorder Anxiety Hypertension Elevated blood pressure reading Acute encephalopathy Blind left eye Macrocytosis Anemia PVD (peripheral vascular disease) Sciatica ANSELMO (generalized anxiety disorder) TIA (transient ischemic attack) Cecal volvulus Surgical History H/O hemicolectomy Status post partial colectomy H/O knee surgery H/O eye surgery S/P IRASEMA-BSO Family History Daughter Healthy adult Social History Smoking and tobacco/nicotine status: never used tobacco/nicotine Alcohol intake: current Alcohol intake frequency: 0-2 Drinks per Day Alcohol type: wine Substance/Drug Use: never Lives independently: Yes Household members: significant other Marital status: / Physical Exam Const: GENERAL APPEARANCE: cooperative ORIENTATION/CONSCIOUSNESS: Yes awake HENMT: COMMON NORMALS: normocephalic, atraumatic and hearing grossly normal bilaterally HEAD & SCALP: normocephalic and atraumatic Resp: COMMON NORMALS: normal respiratory effort, No retractions, No use of accessory muscles and clear to auscultation bilaterally AUSCULTATION: clear to auscultation bilaterally Cardio: COMMON NORMALS: regular rate, regular rhythm and No murmurs present (Cardio) RATE: regular rate RHYTHM: regular rhythm GI: COMMON NORMALS: Soft to palpation and No hepatosplenomegaly present AUSCULTATION: Yes normoactive bowel sounds PALPATION: Yes Soft to palpation, No Tenderness to palpation present (GI), No Guarding due to palpation present (GI) and Yes No hepatosplenomegaly present Extremity: COMMON NORMALS: normal to inspection, capillary refill normal, no clubbing, cyanosis or edema, no calf tenderness and no pedal edema Skin: COMMON NORMALS: no rashes or lesions noted GENERAL SKIN EXAM: no rashes or lesions noted Course Vital Signs: Vital signs: Vital Signs Temperature 97.4 F L 11/05/24 14:12 Pulse Rate 74 11/05/24 17:03 Respiratory Rate 16 11/05/24 14:12 Blood Pressure 150/101 11/05/24 14:53 Pulse Oximetry 92 11/05/24 17:03 Oxygen Delivery Me thod Room Air 11/05/24 14:53 MDM - General Adult Medical Decision Making No focal neurologic deficits no sign of stroke. CT head unremarkable. NIH score unremarkable. Patient does have chronic ischemic changes but nothing that is subacute or acute denies any acute aphasia we will discharge patient home and think some of her issues are mild cognitive decline. Medical Records I reviewed the patient's medical records. Lab Data I reviewed the patient's lab results. 11/05/24 14:39 11/05/24 14:39 Radiology Impressions Chest X-Ray 11/05/24 14:11 IMPRESSION: No acute findings. There is ill-defined bibasilar density, consistent with atelectasis or early bibasilar pneumonia.The colon is normal. SmallThere is no evidence of intestinal perforation or obstruction. Right Head CT 11/05/24 15:16 IMPRESSION: 1. No acute findings noted 2. Cerebral atrophy with chronic ischemic changes noted Laboratory Results WBC 9.33 10^3/uL (3.29-11.43) 11/05/24 14:39 RBC 3.35 10^6/uL (3.85-5.65) L 11/05/24 14:39 Hgb 11.40 g/dL (11.27-16.99) 11/05/24 14:39 Hct 36.1 % (36-47) 11/05/24 14:39 MCV 107.8 fl (85-98) H 11/05/24 14:39 MCH 34.0 pg (27-33) H 11/05/24 14:39 MCHC 31.6 g/dL (30-55) 11/05/24 14:39 RDW 12.8 % (12.1-15.1) 11/05/24 14:39 Plt Count 251 10^3/cmm (157-399) 11/05/24 14:39 MPV 10.0 fL (7.4-10.4) 11/05/24 14:39 Neut % (Auto) 69.3 % 11/05/24 14:39 Lymph % (Auto) 15.3 % 11/05/24 14:39 Lawrence % (Auto) 10.2 % 11/05/24 14:39 Eos % (Auto) 3.9 % 11/05/24 14:39 Baso % (Auto) 0.9 % 11/05/24 14:39 Neut # (Auto) 6.47 10^3/uL (1.8-7.7) 11/05/24 14:39 Lymph # (Auto) 1.4 10^3/uL (0.8-4.8) 11/05/24 14:39 Lawrence # (Auto) 1.0 10^3/uL (0.2-0.9) H 11/05/24 14:39 Eos # (Auto) 0.4 10^3/uL (0.0-0.8) 11/05/24 14:39 Baso # (Auto) 0.1 10^3/uL (0.0-0.1) 11/05/24 14:39 Nucleated RBC % (auto) 0 % 11/05/24 14:39 Nucleated RBCs # 0.0 /100WBC 11/05/24 14:39 Sodium 139 mmol/L (136-145) 11/05/24 14:39 Potassium 4.5 mmol/L (3.5-5.1) 11/05/24 14:39 Chloride 101 mmol/L (98-107) 11/05/24 14:39 Carbon Dioxide 23 mmol/L (22-29) 11/05/24 14:39 Anion Gap 19.5 (5-19) H 11/05/24 14:39 BUN 23 mg/dL (8-23) 11/05/24 14:39 Creatinine 0.8 mg/dL (0.5-0.9) 11/05/24 14:39 GFR Calculation Not Reportable 11/05/24 14:39 Glucose 106 mg/dL (65-115) 11/05/24 14:39 Calculated Osmolality 292 mOsm/kg (285-295) 11/05/24 14:39 Calcium 9.7 mg/dL (8.5-10.5) 11/05/24 14:39 Total Bilirubin 0.5 mg/dL (0.15-1.2) 11/05/24 14:39 AST 18 U/L (0-32) 11/05/24 14:39 ALT 12 U/L (0-33) 11/05/24 14:39 Alkaline Phosphatase 84 U/L (35-105) 11/05/24 14:39 Total Protein 7.6 g/dL (6.6-8.7) 11/05/24 14:39 Albumin 4.3 g/dL (3.5-5.2) 11/05/24 14:39 Globulin 3.3 g/dL (1.3-4.6) 11/05/24 14:39 TSH 3.22 uIU/mL (0.27-4.20) 11/05/24 14:39 Urine Color Yellow (Yellow) 11/05/24 16:28 Urine Appearance Clear (CLEAR) 11/05/24 16:28 Urine pH 7.0 (5-7) 11/05/24 16:28 Ur Specific [place] 1.022 (1.005-1.030) 11/05/24 16:28 Urine Protein Negative (Negative) 11/05/24 16:28 Urine Glucose (UA) Negative (Normal) 11/05/24 16:28 Urine Ketones Negative (Negative) 11/05/24 16:28 Urine Blood Negative (Negative) 11/05/24 16:28 Urine Nitrate Negative (Negative) 11/05/24 16:28 Urine Bilirubin Negative (Negative) 11/05/24 16:28 Urine Urobilinogen 1.0 mg/dL (Negative) 11/05/24 16:28 Ur Leukocyte Esterase Trace (Negative) A 11/05/24 16:28 Urine RBC 3-5 /hpf (0-2) 11/05/24 16:28 Urine WBC 0-5 /hpf (0-5) 11/05/24 16:28 Ur Squamous Epith Cells 0-5 /hpf (0-5) 11/05/24 16:28 Amorphous Sediment Not Reportable 11/05/24 16:28 Urine Bacteria 1+ /hpf (NONE) H 11/05/24 16:28 Hyaline Casts 0.81 /lpf 11/05/24 16:28 All radiology interpretation(s) finalized by discharge Discharge Plan Discharge Patient Disposition: Home Clinical Impression: Syncope, Memory deficit Condition: Stable Prescriptions: No Action triamcinolone acetonide 0.1 % cream 1 applic topical BID Qty: 15 0RF biotin 10,000 mcg capsule PO multivitamin Tablet 1 tab PO DAILY cholecalciferol (vitamin D3) 50 mcg (2,000 unit) capsule 50 mcg PO DAILY duloxetine 60 mg capsule,delayed release(DR/EC) 60 mg PO DAILY Qty: 90 1RF simethicone [Gas Relief (simethicone)] 125 mg capsule 125 mg PO DAILY PRN (Reason: abdominal distention) Qty: 30 1RF aspirin 81 mg tablet,delayed release (DR/EC) 81 mg PO DAILY Qty: 30 1RF hydroxyzine HCl 25 mg tablet 25 mg PO BID PRN (Reason: itching) Qty: 30 0RF sulfamethoxazole-trimethoprim [Bactrim DS] 800-160 mg tablet 1 tab PO BID Qty: 14 0RF prednisone 20 mg tablet 40 mg PO DAILY 5 Days Qty: 10 0RF Discharge Orders: Discharge ED (Routine); Ordered 11/05/24 Ordered By: Isaac Scales Referrals: Maxx Palumbo MD [Primary Care Provider, [facility]] Discharge Diet: Usual diet Discharge Activity: Resume usual activity Patient Instructions: Opioid Safety, Pain Management, Patient Portal & Michael Instructions Activity Restrictions/Additional Instructions: Thank you for choosing [facility] for your healthcare needs today. It is very important that you follow up as instructed or that you return to the Emergency Department should you have concerns or if your condition changes or worsens in any way. You are seen in the emergency room with complaints of dizziness lightheadedness and a syncopal episode several weeks ago. CT of your head showed signs of a old previous stroke but nothing subacute or new your exam today did not show evidence of a new or subacute stroke. Will discharge home recommend he continue to take baby aspirin daily. Will set up for an outpatient echocardiogram and carotid duplex follow-up with your primary care doctor regarding these results. Print Language: Irish Coding Level of Care Code ED Nursing Executive for Amy Hubbard NIH stroke score NIHSS Level Of Consciousness - 1a: 0 Level Of Consciousness Questions - 1b: One Correct Level Of Consciousness Commands - 1c: Both Correct Best Gaze - 2: Normal Visual García - 3: No Visual Loss Facial Palsy - 4: Normal Motor Arm Right - 5: No Drift Motor Arm Left - 5: No Drift Motor Leg Right - 6: No Drift Motor Leg Left - 6: No Drift Limb Ataxia - 7: Absent Sensory - 8: Normal Best Language - 9: No Aphasia Dysarthia - 10: Normal Extinction And Inattention - 11: 0 Score Total Score: 1
[2024-11-05 14:59] LABS: Hematocrit 36.1 % (36-47); Hemoglobin 11.40 g/dL (11.27-16.99); Mean Corpuscular HGB Conc 31.6 g/dL (30-55); Mean Corpuscular Hemoglobin 34.0 pg (27-33); Mean Corpuscular Volume 107.8 fl (85-98); Nucleated Red Blood Cells % 0 %; Platelet Count 251 10^3/cmm (157-399); Red Blood Count 3.35 10^6/uL (3.85-5.65); White Blood Count 9.33 10^3/uL (3.29-11.43)
--- NOTE | 2024-11-05 15:16 | CTR_ITS ---
PROCEDURE INFORMATION: Exam: CT Head Without Contrast Exam date and time: 11/05/2024 4:05 PM Age: 83 years old Clinical indication: Altered mental status/memory loss; Confusion or disorientation TECHNIQUE: Imaging protocol: Computed tomography of the head without contrast. Radiation optimization: All CT scans at this facility use at least one of these dose optimization techniques: automated exposure control; mA and/or kV adjustment per patient size (includes targeted exams where dose is matched to clinical indication); or iterative reconstruction. COMPARISON: CT head wo con* [id number] 03/24/2021 10:59 AM RADIATION DOSE METRICS: Total DLP (mGy-cm): 1099.2 FINDINGS: Brain: There is prominent chronic periventricular white matter ischemic change. There is no evidence of mass effect, hemorrhage or infarct. Prominent diffuse cerebral atrophy is noted. Cerebral ventricles: No ventriculomegaly. No midline shift. Paranasal sinuses: Visualized sinuses are unremarkable. No fluid levels. Mastoid air cells: Visualized mastoid air cells are well aerated. Bones: Unremarkable. No acute fracture. Soft tissues: Unremarkable. CT/CT head wo con* [id number] IMPRESSION: 1. No acute findings noted 2. Cerebral atrophy with chronic ischemic changes noted
[2024-11-05 15:31] LABS: Alanine Aminotransferase 12 U/L (0-33); Albumin Level 4.3 g/dL (3.5-5.2); Alkaline Phosphatase 84 U/L (35-105); Anion Gap 19.5 (5-19); Aspartate Amino Transferase 18 U/L (0-32); Blood Urea Nitrogen 23 mg/dL (8-23); Calcium 9.7 mg/dL (8.5-10.5); Carbon Dioxide 23 mmol/L (22-29); Chloride 101 mmol/L (98-107); Creatinine Clr Calc Pharmacy 52.3503; Globulin 3.3 g/dL (1.3-4.6); Glucose 106 mg/dL (65-115); Osmolality Calculated 292 mOsm/kg (285-295); Potassium 4.5 mmol/L (3.5-5.1); Sodium 139 mmol/L (136-145); Thyroid Stimulating Hormone 3.22 uIU/mL (0.27-4.20); Total Protein 7.6 g/dL (6.6-8.7)
[2024-11-05 16:45] LABS: Glucose Urine UA Negative (Normal); Nitrate Urine Negative (Negative); Specific Gravity, Urine 1.022 (1.005-1.030)
[2024-11-05 16:50] LABS: Add Urine Microscopic? YES
[2024-11-05 17:03] VITALS: PULSE 74; O2SAT 92
== END 2024-11-05 18:01 | disposition home or self-care (01) ==
PROVIDERS: Emergency Medicine; Emergency Provider Family Medicine; PCP Family Medicine
DX: R55 Syncope and collapse (principal); I69.911 Memory deficit following unspecified cerebrovascular disease; I10 Essential (primary) hypertension
CPT/HCPCS: 36415; 70450; 71045; 80053; 81001; 84443; 85025; 93005; 99285

== ENCOUNTER 2024-11-11 19:21 | Emergency (ER) | payer MEDICARE, SELFPAY ==
--- OUTSIDE RECORDS SUMMARY | 2024-02-04 04:00 | XMS_ITS ---
Author Organization [facility] Address [address] [place] [address] Care Team Providers Care Institutional Commodity Analyst Name Role Phone David Saleh Primary Care Provider UnavailMaru Luna Unavailable [phone] Migration, Provider Unavailable Unavailable REASON FOR VISIT EMR-Nacho Encounters Encounter Location Date Provider Diagnosis Migrated_Facility 0 0 02/04/2024 Provider Migration Plan Of Treatment No Information Progress Notes * XANDER GERBER EDOB:1940 (83 yo F)Acc No.[id number]:02/04/2024 Patient: Gwen XANDER KAISER :1940 A ge:83 Y S ex:Female Address:[address] [place] [address] Subjective: * Chief Complaints: * E MR-Nacho * * Date:
--- OUTSIDE RECORDS SUMMARY | 2024-02-05 04:00 | XMS_ITS ---
Author Organization [facility] Address [address] [place] [address] Care Team Providers Care Modern Languages Professor Name Role Phone David Saleh Primary Care Provider Maru Yost Unavailable [phone] Migration, Provider Unavailable Unavailable Allergies Allergen (clinical drug ingredient) Drug/Non Drug Allergy documented on EMR Reaction Allergy Type Onset Date Status No Known Drug Allergy Unknown Drug Allergy Active REASON FOR VISIT EMR-Nacho Encounters Encounter Location Date Provider Diagnosis Migrated_Facility 0 0 02/05/2024 Provider Migration Plan Of Treatment No Information Progress Notes * XANDER GERBER EDOB:1940 (83 yo F)Acc No.[id number]:02/05/2024 Patient: XANDER RODRIGUEZ :1940 A ge:83 Y S ex:Female Address:[address] [place] [address] Subjective: * Chief Complaints: * E MR-Nacho * Allergies: N o Known Drug Allergy: Allergy * * Date:
[2024-11-11 19:27] VITALS: BP 157/101; PULSE 138; RESP 17; TEMP 36.8; O2SAT 99; BMI 27.8
--- OUTSIDE RECORDS SUMMARY | 2024-11-11 19:38 | XMS_ITS ---
Author Organization [facility] Care Team Providers Care Golf Ball Marker Name Role Phone Nichole Mercedes Unavailable Unavailable Allergies and adverse reactions Code CodeSystem Substance Reaction Severity StartDate Concern Status 7052 RXNORM morphine Unknown 03/27/2021 active Care Team Name Role Address Phone Organization Dates Nichole Mercedes [facility] [address] [place], [address], [place] (Office): : [facility] 03/27/2021 - 04/06/2021 Mental Status Section [...] Current Smoking Status Tobacco smoking consumption unknown [id number] SNOMED CT Sex Assigned At Female 1940 [address]-2 [facility] Gender Identity Vital Signs Code Code System Vitals Name Values and Units Timing Information 9279-1 LOINC Respiratory Rate Value=18.0 Units=/m in 04/06/2021 8462-4 LOINC Blood Pressure-Diastolic Value=62 Un its=mmHg 04/06/2021 8480-6 LOINC Blood Pressure-Systolic Wlpoa=866 Un its=mmHg 04/06/2021 8310-5 LOINC Body Temperature Value=97.0 Units= F 04/06/2021 8867-4 [facility] Heart rate Value=64.0 Units=/min 65207-1 [facility] O2 % BldC Oximetry Value=98.0 Units= % 04/06/2021 55378-7 [facility] Weight Czaca=411.0 Units=Lbs 8302-2 [facility] Height Value=67.0 Units=Inches 03/27/2021
--- OUTSIDE RECORDS SUMMARY | 2024-11-11 19:38 | XMS_ITS | Patient Health Record ---
Author Organization [facility] Address [address] [place] [address] Care Team Providers Care Aviation Safety Officer Name Role Phone David Saleh Primary Care Provider UnavailMaru Luna Unavailable [phone] Jv Beach Unavailable [phone] Migration, Provider Unavailable Unavailable Allergies Allergen (clinical drug ingredient) Drug/Non Drug Allergy documented on EMR Reaction Allergy Type Onset Date Status No Known Drug Allergy Unknown Drug Allergy Active Reason For Referral No Information Medications Medication SIG (Take, Route, Frequency, Duration) Notes Start Date End Date Status Glucosamine 10/16/2010 Active Osteo Bi-Flex Regular Strength bid Active Aleve 10/16/2010 Active Vitamin B12 5000 mg po q day Active oxyBUTYnin Chloride 5 MG Tablet 1 tablet Orally Twice a day Active DULoxetine HCl 60 MG Capsule Delayed Release Particles 1 capsule Orally Once a day Active Aspirin 81 81 MG Tablet Delayed Release 1 tablet Orally Once a day Active Golytely 236 GM Solution Reconstituted as directed Orally 10/18/2019 Active Super B Complex Acti ve Reglan 10 MG Tablet 1 tablet Orally 10/18/2019 Active Immunizations Vaccine Route Administration Date Status Comme nts Influenza (whole), CPT 78107 Inactive Unknown 01/09/2018 Administered Social History Tobacco Use: Social History Observation Description Date Details (start date - stop date) Former Smoker NA - NA Social History Depression Screening Social Info Question Answer Notes PHQ-9 Little interest or pleasure in doing thin gs Not at all Feeling down, depressed, or hopeless Not at all Trouble falling or staying asleep, or sleeping t oo much Not at all Feeling tired or having little energy Not at all Poor appetite or overeating Not at all Feeling bad about yourself, or that you are a failure, or have let yourself or your family down Not at all Trouble concentrating on thi ngs, such as reading the newspaper or watching television Not at all Moving or speaking so slowly that other people could have noticed. Or the opposite ? being so fidgety or restless that you have been moving around a lot more than usual Not at all Thoughts that you would be b vidya off , or of hurting yourself in some way Not at all Total Score 0 Drugs/Alcohol: Social Info Question Answer Notes Alcohol Screen (Audit-C) Did you have a drink containing alcohol in the past year? Yes How often did you have a drink containing alcohol in the past year? 4 or more times a week (4 points) How many drinks did you have on a typical day when you were drinking in the past year? 1 or 2 drinks (0 point) How often did you have 6 or more drinks on one occasion in the past year? Never (0 point) Points 4 Interpretation Positive Drugs Have you used drugs other than those for medical reasons in the past 12 months? No Tobacco Use: Social Info Question Answer Notes xTobacco Use/Smoking Are you a former smoker How long has it been since you last smoked? > 10 years Additional Details Category Social Info Options Details Miscellaneous: Marital status: , i n relationship with male partner Occupation: Retired zzMigrated Social History Migrated Social History Smoking Status:Ex-smoker (finding) Encounters Encounter Location Date Provider Diagnosis [facility] [address] [place] [address] 10/18/2024 Jv Beach Migrated_Facility 0 0 02/05/2024 Provider Migration Migrated_Facility 0 0 02/04/2024 Provider Migration Plan Of Treatment No Information Insurance Providers Payer Name Payer Address Payer Phone Subscriber Number Group Number Insured Name Patient Relationship to Insured Coverage Start Date Coverage End Date [place] Medicare [address] [place] [phone] [id number] XANDER GERBER Self - patient is the insured [facility] Medicare Supplement [address] [place] [address] [id number] XANDER GERBER Self - patient is the insured Medical (General) History Medical History History ICD Code Arthropathy Bursitis of hip Morbid obesity Rheumatoid arthritis Arthritis back trouble Surgical History Surgery Date(Month/Year) hysterectomy total Hospitalization History Reason Date(Month/Year) see surgical hx
--- OUTSIDE RECORDS SUMMARY | 2024-11-11 19:38 | XMS_ITS | Clinical Summary ---
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
--- NOTE | 2024-11-11 19:40 | ECG_ITS ---
[facility] Test Date: 2024-11-11 Pat Name: Morena Pedraza Department: Room: Gender: Female Bruise Trimmer: : 1940 Requested By: Aníbal Corrales Order Number: [id number] Reading MD: JACKIE QUARLES Measurements Intervals [place] Rate: 78 P: 69 OK: 145 QRS: -15 QRSD: 81 T: 49 QT: 363 QTc: 416 Interpretive Statements SINUS RHYTHM WITH OCCASIONAL SUPRAVENTRICULAR PREMATURE COMPLEXES LOW QRS VOLTAGE IN PRECORDIAL LEADS [QRS DEFLECTION < 1.0 mV IN CHEST LEADS] PATTERN CONSISTENT WITH PULMONARY DISEASE INTERPRETATION BASED ON A DEFAULT AGE OF 40 YEARS Compared to ECG 11/05/2024 14:21:46 No significant changes Electronically Signed On 11-12-2024 13:56:04 CDT by JACKIE QUARLES [id number]
--- NOTE | 2024-11-11 19:41 | XRR_ITS ---
PROCEDURE INFORMATION: Exam: XR Chest Exam date and time: 11/11/2024 7:52 PM Age: 83 years old Clinical indication: Other: Ams/general weakness; General weakness with confusion TECHNIQUE: Imaging protocol: Radiologic exam of the chest. Views: 1 view. COMPARISON: CR XR chest 1V portable [id number] 11/05/2024 2:47 PM FINDINGS: Lungs: No focal lung consolidation. Pleural spaces: No pleural effusion. No pneumothorax. Heart/Mediastinum: No cardiomegaly. Bones/joints: No acute bony abnormality. XR/XR chest 1V portable [id number] IMPRESSION: No focal lung consolidation.
--- NOTE | 2024-11-11 19:41 | CTR_ITS ---
PROCEDURE INFORMATION: Exam: CT Head Without Contrast Exam date and time: 11/11/2024 7:54 PM Age: 83 years old Clinical indication: Stroke-like symptoms; Altered mental status/memory loss; Additional info: Per family unwitnessed fall with confusion. Last known well time of 1700 hours. TECHNIQUE: Imaging protocol: Computed tomography of the head without contrast. Radiation optimization: All CT scans at this facility use at least one of these dose optimization techniques: automated exposure control; mA and/or kV adjustment per patient size (includes targeted exams where dose is matched to clinical indication); or iterative reconstruction. Other technique: STROKE PROTOCOL was implemented. COMPARISON: CT head wo con* [id number] 11/05/2024 4:05 PM RADIATION DOSE METRICS: Total DLP (mGy-cm): 1016.58 FINDINGS: Brain: Moderate nonspecific white matter low attenuation which may be related to microvascular ischemic changes. No acute confluent lobar ischemic infarct. No acute intracranial hemorrhage. Cerebral ventricles: The ventricles and sulci are prominent in size compatible with moderate atrophy. Paranasal sinuses: No fluid levels. Mastoid air cells: Visualized mastoid air cells are well aerated. Orbital cavities: Stable appearance to high density within the left globe. Recommend clinical correlation and correlation with ophthalmologic history. Bones: No acute calvarial fracture. Soft tissues: Visualized soft tissues are unremarkable. CT/CT head thrombolytic [id number] IMPRESSION: No acute intracranial abnormality. If symptoms persist, consider further evaluation with MRI, if there are no contraindications to obtaining a MRI scan. ASSESSMENT: ASPECTS ([place] Stroke Program Early CT Score) is 10.
--- NOTE | 2024-11-11 19:44 | XRR_ITS ---
PROCEDURE INFORMATION: Exam: XR Lumbosacral Spine Exam date and time: 11/11/2024 8:02 PM Age: 83 years old Clinical indication: Pain; Lumbago; Additional info: Lower back/ tailbone pain post fall TECHNIQUE: Imaging protocol: Radiologic exam of the lumbosacral spine. Views: 2 or 3 views. COMPARISON: CR XR sacrum coccyx min 2V [id number] 11/11/2024 8:02 PM FINDINGS: Bones/joints: Dextroconvex curvature of the lumbar spine with approximately 29 degrees of curvature extending from the superior endplate of L1 to the inferior endplate of L4. There is mild height loss of the L4 vertebral body without a wedge deformity. Unchanged sclerosis of the inferior endplate of L3 and superior endplate of L4. Degenerative changes throughout the lumbar spine. Soft tissues: Unremarkable. XR/XR lumbar spine 2-3V* [id number] IMPRESSION: Mild height loss of the L4 vertebral body without a wedge deformity. Height loss is new compared to CT from 03/21/2021.
--- NOTE | 2024-11-11 19:44 | XRR_ITS ---
PROCEDURE INFORMATION: Exam: XR Sacrum and Coccyx, 2 or More Views Exam date and time: 11/11/2024 8:02 PM Age: 83 years old Clinical indication: Pain in coccyx area; Prior surgery; Surgery date: 6+ months; Surgery type: Hysterectomy, partial colon resection; Additional info: Lower back/ tailbone pain post fall TECHNIQUE: Imaging protocol: XR of the sacrum and coccyx, 2 or more views. COMPARISON: CR XR lumbar spine 2-3V* [id number] 11/11/2024 8:02 PM FINDINGS: Bones/joints: Normal. No acute fracture. Soft tissues: Normal. XR/XR sacrum coccyx min 2V [id number] IMPRESSION: No acute findings.
--- NOTE | 2024-11-11 19:46 | W.ED.NEUROSD ---
HPI - Neuro Symptoms/Deficit General: Chief Complaint: Neuro Symptoms/Deficit Stated Complaint: fall speech problems after shaky Time Seen by Provider: 11/11/24 19:36 History of Present Illness: 83-year-old female presents with shaky and tremors. Patient was last known normal around 11 PM last night. She reports that she awoke in her chair around 3 PM and has an abrasion on her right arm and her butt hurts like she fell but she does not remember falling. Patient lives alone and called her neighbor earlier this evening and had them bring him to the ER now. Patient had a stroke about 5 years ago. She had a similar episode to this couple weeks ago but she is a little more tremoring and like shaking with her voice per her neighbor than she was couple weeks ago. Associated symptoms: Deny chest pain, nausea or vomiting Related Data Home Medications ?Medication ?Instructions ?Recorded ?Confirmed biotin 10,000 mcg capsule mcg PO 03/30/24 11/05/24 cholecalciferol (vitamin D3) 50 50 mcg PO DAILY 03/30/24 11/05/24 mcg (2,000 unit) capsule multivitamin 1 tab PO DAILY 03/30/24 11/05/24 Previous Rx's ?Medication ?Instructions ?Recorded aspirin 81 mg tablet,delayed 81 mg PO DAILY #30 tabs 10/06/23 release simethicone 125 mg capsule (Gas 125 mg PO DAILY PRN abdominal 10/06/23 Relief (simethicone)) distention #30 caps triamcinolone acetonide 0.1 % 1 applic topical BID #15 grams 01/23/24 topical cream duloxetine 60 mg capsule,delayed 60 mg PO DAILY #90 caps 03/30/24 release hydroxyzine HCl 25 mg tablet 25 mg PO BID PRN itching #30 tabs 04/05/24 prednisone 20 mg tablet 40 mg (2 x 20 mg) PO DAILY 5 days 04/05/24 #10 tabs sulfamethoxazole 800 1 tab PO BID #14 tabs 04/05/24 mg-trimethoprim 160 mg tablet (Bactrim DS) Allergies Allergy/AdvReac Type Severity Reaction Status Date / Time morphine AdvReac Intermediate ADR-Confusi Verified 11/05/24 13:41 on Review of Systems Const: Denies: fever(s) or chills Card: Denies: chest pain or palpitations Resp: Denies: dyspnea, productive cough or wheezing GI: Denies: abdominal pain, nausea or vomiting Musc: Reports: other (Coccyx pain) Neuro: Reports: other (Tremor/shaking) PFSH ED PFSH: Medical History (Updated 11/11/24 @ 21:41 by Anjum Corrales DO) Memory deficit Alcohol use disorder Anxiety Hypertension Elevated blood pressure reading Acute encephalopathy Blind left eye Macrocytosis Anemia PVD (peripheral vascular disease) Sciatica ANSELMO (generalized anxiety disorder) TIA (transient ischemic attack) Cecal volvulus Surgical History H/O hemicolectomy Status post partial colectomy H/O knee surgery H/O eye surgery S/P IRASEMA-BSO Family History Daughter Healthy adult Social History Smoking and tobacco/nicotine status: never used tobacco/nicotine Alcohol intake: current Alcohol intake frequency: 0-2 Drinks per Day Alcohol type: wine Substance/Drug Use: never Lives independently: Yes Household members: significant other Marital status: / NIH stroke score NIHSS: Level Of Consciousness - 1a: 0 Level Of Consciousness Questions - 1b: Both Correct Level Of Consciousness Commands - 1c: Both Correct Best Gaze - 2: Normal Visual García - 3: No Visual Loss Facial Palsy - 4: Normal Motor Arm Right - 5: No Drift Motor Arm Left - 5: No Drift Motor Leg Right - 6: No Drift Motor Leg Left - 6: No Drift Limb Ataxia - 7: Absent Sensory - 8: Normal Best Language - 9: Mild/Moderate Aphasia Dysarthia - 10: Normal Extinction And Inattention - 11: 0 Score: Total Score: 1 Physical Exam Const: COMMON NORMALS: no acute distress and patient oriented x3 OTHER: Mild shaky/anxious Resp: COMMON NORMALS: normal respiratory effort, No use of accessory muscles and clear to auscultation bilaterally AUSCULTATION: clear to auscultation bilaterally Cardio: COMMON NORMALS: regular rate and regular rhythm RATE: regular rate RHYTHM: regular rhythm GI: COMMON NORMALS: Soft to palpation and non-tender PALPATION: Yes Soft to palpation : COMMON NORMALS: Yes no CVA tenderness BLADDER/KIDNEY EXAM: Yes no CVA tenderness Back/Pelvis: COMMON NORMALS: no CVA tenderness Extremity: NARRATIVE EXTREMITY EXAM: Mild tendernes buttock Neuro: COMMON NORMALS: patient oriented x3, CN's II-XII intact bilaterally, moves all extremities, no focal motor deficits and no sensory deficits noted Psych: COMMON NORMALS: Normal thought process present SPEECH: Yes Other speech symptoms (Shaky) MOOD & AFFECT: Yes anxious THOUGHT PROCESS: Normal thought process present THOUGHT CONTENT: Yes Normal thought content present Skin: NARRATIVE SKIN EXAM: Small skin abrasion right arm Course Vital Signs: Vital signs: Vital Signs Temperature 98.3 F 11/11/24 19:27 Pulse Rate 78 11/11/24 21:39 Respiratory Rate 16 11/11/24 21:39 Blood Pressure 170/89 11/11/24 21:39 Pulse Oximetry 98 11/11/24 21:39 Oxygen Delivery Me thod Room Air 11/11/24 19:27 MDM - Neuro Symptoms/Deficit Medical Decision Making Patient's CT shows no acute findings. Patient's labs were ordered and reviewed and showed no significant findings. Patient is requesting discharge. I discussed that I would like to at least evaluate her urine and even consider hospitalization for further evaluation. However she declined. She reports that she will call her primary care provider in the morning and follow-up with them. I did discuss risks and she understands it. She is discharged as she requested. Lab Data 11/11/24 19:51 11/11/24 19:51 Radiology Impressions Chest X-Ray 11/11/24 19:41 IMPRESSION: No focal lung consolidation. Head CT 11/11/24 19:41 IMPRESSION: No acute intracranial abnormality. If symptoms persist, consider further evaluation with MRI, if there are no contraindications to obtaining a MRI scan. ASSESSMENT: ASPECTS ([place] Stroke Program Early CT Score) is 10. ADDENDUM: 11/11/242009 ADDENDUM: THIS REPORT CONTAINS FINDINGS THAT MAY BE CRITICAL TO PATIENT CARE. The findings were verbally communicated via telephone conference with ANJUM CORRALES at 8:08 PM CDT on 11/11/2024. The findings were acknowledged and understood. Laboratory Results WBC 10.08 10^3/uL (3.29-11.43) 11/11/24 19:51 RBC 3.62 10^6/uL (3.85-5.65) L 11/11/24 19:51 Hgb 12.40 g/dL (11.27-16.99) 11/11/24 19:51 Hct 37.8 % (36-47) 11/11/24 19:51 MCV 104.4 fl (85-98) H 11/11/24 19:51 MCH 34.3 pg (27-33) H 11/11/24 19:51 MCHC 32.8 g/dL (30-55) 11/11/24 19:51 RDW 12.5 % (12.1-15.1) 11/11/24 19:51 Plt Count 305 10^3/cmm (157-399) 11/11/24 19:51 MPV 9.7 fL (7.4-10.4) 11/11/24 19:51 Neut % (Auto) 69.8 % 11/11/24 19:51 Lymph % (Auto) 15.7 % 11/11/24 19:51 [place] % (Auto) 9.8 % 11/11/24 19:51 Eos % (Auto) 3.7 % 11/11/24 19:51 Baso % (Auto) 0.7 % 11/11/24 19:51 Neut # (Auto) 7.04 10^3/uL (1.8-7.7) 11/11/24 19:51 Lymph # (Auto) 1.6 10^3/uL (0.8-4.8) 11/11/24 19:51 [place] # (Auto) 1.0 10^3/uL (0.2-0.9) H 11/11/24 19:51 Eos # (Auto) 0.4 10^3/uL (0.0-0.8) 11/11/24 19:51 Baso # (Auto) 0.1 10^3/uL (0.0-0.1) 11/11/24 19:51 Nucleated RBC % (auto) 0 % 11/11/24 19:51 Nucleated RBCs # 0.0 /100WBC 11/11/24 19:51 PT 12.60 SECONDS (12.1-14.9) 11/11/24 19:51 INR 0.89 (0.8-1.2) 11/11/24 19:51 APTT 23.0 SECONDS (23.9-36.7) L 11/11/24 19:51 Sodium 136 mmol/L (136-145) 11/11/24 19:51 Potassium 4.2 mmol/L (3.5-5.1) 11/11/24 19:51 Chloride 99 mmol/L (98-107) 11/11/24 19:51 Carbon Dioxide 25 mmol/L (22-29) 11/11/24 19:51 Anion Gap 16.2 (5-19) 11/11/24 19:51 BUN 20 mg/dL (8-23) 11/11/24 19:51 Creatinine 0.8 mg/dL (0.5-0.9) 11/11/24 19:51 GFR Calculation Not Reportable 11/11/24 19:51 Glucose 90 mg/dL (65-115) 11/11/24 19:51 POC Glucose 110 mg/dL (70-110) 11/11/24 19:34 Calculated Osmolality 284 mOsm/kg (285-295) L 11/11/24 19:51 Calcium 9.5 mg/dL (8.5-10.5) 11/11/24 19:51 Total Bilirubin 0.4 mg/dL (0.15-1.2) 11/11/24 19:51 AST 19 U/L (0-32) 11/11/24 19:51 ALT 13 U/L (0-33) 11/11/24 19:51 Alkaline Phosphatase 88 U/L (35-105) 11/11/24 19:51 Troponin T Baseline 18 ng/L (0-10) H 11/11/24 19:51 Total Protein 7.1 g/dL (6.6-8.7) 11/11/24 19:51 Albumin 4.4 g/dL (3.5-5.2) 11/11/24 19:51 Globulin 2.7 g/dL (1.3-4.6) 11/11/24 19:51 Ethyl Alcohol < 10 mg/dL (0-10) 11/11/24 19:51 All radiology interpretation(s) finalized by discharge Discharge Plan Discharge Patient Disposition: Home Clinical Impression: Episode of shaking, Fall, Abrasion of arm, right Condition: Stable Prescriptions: No Action triamcinolone acetonide 0.1 % cream 1 applic topical BID Qty: 15 0RF biotin 10,000 mcg capsule PO multivitamin Tablet 1 tab PO DAILY cholecalciferol (vitamin D3) 50 mcg (2,000 unit) capsule 50 mcg PO DAILY duloxetine 60 mg capsule,delayed release(DR/EC) 60 mg PO DAILY Qty: 90 1RF simethicone [Gas Relief (simethicone)] 125 mg capsule 125 mg PO DAILY PRN (Reason: abdominal distention) Qty: 30 1RF aspirin 81 mg tablet,delayed release (DR/EC) 81 mg PO DAILY Qty: 30 1RF hydroxyzine HCl 25 mg tablet 25 mg PO BID PRN (Reason: itching) Qty: 30 0RF sulfamethoxazole-trimethoprim [Bactrim DS] 800-160 mg tablet 1 tab PO BID Qty: 14 0RF prednisone 20 mg tablet 40 mg PO DAILY 5 Days Qty: 10 0RF Discharge Orders: Discharge ED (Routine); Ordered 11/11/24 Ordered By: Anjum Corrales Referrals: Maxx Palumbo MD [Primary Care Provider, [facility]] Discharge Diet: Advance as tolerated Discharge Activity: Increase activity as tolerated Patient Instructions: Fall Prevention for Older Adults (ED), Abrasion (ED), Skin Tear (ED), Opioid Safety, Pain Management, Patient Portal & Michael Instructions Activity Restrictions/Additional Instructions: Please call your primary care provider first thing in the morning to make a follow-up appointment. Please have them check your urine. Please discuss further evaluation such as MRI and other testing. Print Language: Mohawk Coding Level of Care Code ED Software Quality Engineer for Amy Hubbard
[2024-11-11 19:55] VITALS: BP 163/96
[2024-11-11 19:57] LABS: Hematocrit 37.8 % (36-47); Hemoglobin 12.40 g/dL (11.27-16.99); Mean Corpuscular HGB Conc 32.8 g/dL (30-55); Mean Corpuscular Hemoglobin 34.3 pg (27-33); Mean Corpuscular Volume 104.4 fl (85-98); Nucleated Red Blood Cells % 0 %; Platelet Count 305 10^3/cmm (157-399); Red Blood Count 3.62 10^6/uL (3.85-5.65); White Blood Count 10.08 10^3/uL (3.29-11.43)
[2024-11-11 20:15] LABS: INR 0.89 (0.8-1.2); Partial Thromboplastin Time 23.0 SECONDS (23.9-36.7); Prothrombin Time 12.60 SECONDS (12.1-14.9)
[2024-11-11 20:17] LABS: Troponin(5th) Baseline 18 ng/L (0-10)
[2024-11-11 20:20] LABS: Alanine Aminotransferase 13 U/L (0-33); Albumin Level 4.4 g/dL (3.5-5.2); Alkaline Phosphatase 88 U/L (35-105); Anion Gap 16.2 (5-19); Aspartate Amino Transferase 19 U/L (0-32); Blood Urea Nitrogen 20 mg/dL (8-23); Calcium 9.5 mg/dL (8.5-10.5); Carbon Dioxide 25 mmol/L (22-29); Chloride 99 mmol/L (98-107); Creatinine Clr Calc Pharmacy 52.3503; Globulin 2.7 g/dL (1.3-4.6); Glucose 90 mg/dL (65-115); Osmolality Calculated 284 mOsm/kg (285-295); Potassium 4.2 mmol/L (3.5-5.1); Sodium 136 mmol/L (136-145); Total Protein 7.1 g/dL (6.6-8.7)
[2024-11-11 20:24] LABS: Alcohol Level < 10 mg/dL (0-10)
[2024-11-11 21:39] VITALS: BP 170/89; PULSE 78; RESP 16; O2SAT 98
[2024-11-11 21:49] VITALS: BP 164/99; PULSE 78; RESP 18; O2SAT 98
== END 2024-11-11 21:52 | disposition home or self-care (01) ==
PROVIDERS: Emergency Provider Student in an Organized Health Care Education/Training Program; PCP Family Medicine
DX: S40.811A Abrasion of right upper arm, initial encounter (principal); W19.XXXA Unspecified fall, initial encounter; R25.1 Tremor, unspecified; Z79.82 Long term (current) use of aspirin; I10 Essential (primary) hypertension; Z86.73 Personal history of transient ischemic attack (TIA), and cerebral infarction without residual deficits
CPT/HCPCS: 36416; 70450; 71045; 72100; 72220; 80053; 80307; 82962; 84484; 85025; 85610; 85730; 93005; 99285